=== PATIENT | female | born 1990 | race Caucasian/White ===

== ENCOUNTER → 2019-09-11 12:36 | Outpatient (BNVA) | payer MEDICARE, MEDICAID, SELFPAY | PROVIDERS: Family Provider Family Medicine; PCP Family Medicine; Visit Provider Social Worker Clinical | DX: F63.81 Intermittent explosive disorder (principal); F71 Moderate intellectual disabilities | CPT/HCPCS: 90834 ==

== ENCOUNTER → 2019-10-10 12:55 | Outpatient (BNVA) | payer MEDICARE, MEDICAID, SELFPAY | PROVIDERS: Family Provider Family Medicine; PCP Family Medicine; Visit Provider Social Worker Clinical | DX: F63.81 Intermittent explosive disorder (principal) | CPT/HCPCS: 90834 ==

== ENCOUNTER → 2019-11-13 11:39 | Outpatient (BNVA) | payer MEDICARE, MEDICAID, SELFPAY | PROVIDERS: Family Provider Family Medicine; PCP Family Medicine; Visit Provider Social Worker Clinical | DX: F63.81 Intermittent explosive disorder (principal); F71 Moderate intellectual disabilities | CPT/HCPCS: 90834 ==

== ENCOUNTER → 2019-12-11 13:38 | Outpatient (BNVA) | payer MEDICARE, MEDICAID, SELFPAY | PROVIDERS: Family Provider Family Medicine; PCP Family Medicine; Visit Provider Social Worker Clinical | DX: F63.81 Intermittent explosive disorder (principal); F71 Moderate intellectual disabilities | CPT/HCPCS: 90834 ==

== ENCOUNTER → 2019-12-25 08:07 | Outpatient (BNVA) | payer MEDICARE, MEDICAID, SELFPAY | PROVIDERS: Family Provider Family Medicine; PCP Family Medicine; Visit Provider Social Worker Clinical | DX: F63.81 Intermittent explosive disorder (principal); F71 Moderate intellectual disabilities | CPT/HCPCS: 90832 ==

== ENCOUNTER → 2020-01-16 08:58 | Outpatient (BNVA) | payer MEDICARE, MEDICAID, SELFPAY | PROVIDERS: Family Provider Family Medicine; Visit Provider Social Worker Clinical | DX: F63.81 Intermittent explosive disorder (principal); F71 Moderate intellectual disabilities | CPT/HCPCS: 90834 ==

== ENCOUNTER → 2020-05-22 07:36 | Outpatient (BNVA) | payer MEDICARE, MEDICAID, SELFPAY | PROVIDERS: Family Provider Family Medicine; PCP Family Medicine; Visit Provider Social Worker Clinical | DX: F71 Moderate intellectual disabilities (principal); F63.81 Intermittent explosive disorder | CPT/HCPCS: 90834 ==

== ENCOUNTER → 2020-06-03 08:12 | Outpatient (BNVA) | payer MEDICARE, MEDICAID, SELFPAY | PROVIDERS: Family Provider Family Medicine; Visit Provider Social Worker Clinical | DX: F71 Moderate intellectual disabilities (principal); F63.81 Intermittent explosive disorder | CPT/HCPCS: 90834 ==

== ENCOUNTER → 2020-06-10 08:48 | Outpatient (BNVA) | payer MEDICARE, MEDICAID, SELFPAY | PROVIDERS: Family Provider Family Medicine; Visit Provider Social Worker Clinical | DX: F71 Moderate intellectual disabilities (principal); F63.81 Intermittent explosive disorder | CPT/HCPCS: 90832 ==

== ENCOUNTER → 2020-06-17 08:42 | Outpatient (BNVA) | payer MEDICARE, MEDICAID, SELFPAY | PROVIDERS: Family Provider Family Medicine; Visit Provider Social Worker Clinical | DX: F63.81 Intermittent explosive disorder (principal); F71 Moderate intellectual disabilities | CPT/HCPCS: 90791 ==

== ENCOUNTER → 2020-06-30 14:04 | Outpatient (BNVA) | payer MEDICARE, MEDICAID, SELFPAY | PROVIDERS: Family Provider Family Medicine; Visit Provider Social Worker Clinical | DX: F71 Moderate intellectual disabilities (principal); F63.81 Intermittent explosive disorder | CPT/HCPCS: 90832 ==

== ENCOUNTER → 2020-07-08 09:22 | Outpatient (BNVA) | payer MEDICARE, MEDICAID, SELFPAY | PROVIDERS: Family Provider Family Medicine; Visit Provider Social Worker Clinical | DX: F71 Moderate intellectual disabilities (principal); F63.81 Intermittent explosive disorder | CPT/HCPCS: 90834; 90832 ==

== ENCOUNTER → 2020-07-11 18:10 | Outpatient (BNVA) | payer MEDICARE, MEDICAID, SELFPAY | PROVIDERS: Family Provider Family Medicine; Visit Provider Nurse Practitioner | DX: Z20.828 Contact with and (suspected) exposure to other viral communicable diseases (principal); J02.9 Acute pharyngitis, unspecified | CPT/HCPCS: 87071; 87635; 87880 ==

== ENCOUNTER → 2020-07-15 08:22 | Outpatient (BNVA) | payer MEDICARE, MEDICAID, SELFPAY | PROVIDERS: Family Provider Family Medicine; Visit Provider Social Worker Clinical | DX: F63.81 Intermittent explosive disorder (principal); F70 Mild intellectual disabilities | CPT/HCPCS: 90834 ==

== ENCOUNTER → 2020-07-22 07:59 | Outpatient (BNVA) | payer MEDICARE, MEDICAID, SELFPAY | PROVIDERS: Family Provider Family Medicine; Visit Provider Social Worker Clinical | DX: F63.81 Intermittent explosive disorder (principal); F70 Mild intellectual disabilities | CPT/HCPCS: 90834 ==

== ENCOUNTER → 2020-08-06 07:48 | Outpatient (BNVA) | payer MEDICARE, MEDICAID, SELFPAY | PROVIDERS: Family Provider Family Medicine; Visit Provider Social Worker Clinical | DX: F63.81 Intermittent explosive disorder (principal); F70 Mild intellectual disabilities | CPT/HCPCS: 90834 ==

== ENCOUNTER → 2020-09-03 07:48 | Outpatient (BNVA) | payer MEDICARE, MEDICAID, SELFPAY | PROVIDERS: Family Provider Family Medicine; Visit Provider Social Worker Clinical | DX: F63.81 Intermittent explosive disorder (principal); F70 Mild intellectual disabilities | CPT/HCPCS: 90834 ==

== ENCOUNTER → 2020-09-22 08:40 | Outpatient (BNVA) | payer MEDICARE, MEDICAID, SELFPAY | PROVIDERS: Family Provider Family Medicine; Visit Provider Social Worker Clinical | DX: F63.81 Intermittent explosive disorder (principal); F70 Mild intellectual disabilities | CPT/HCPCS: 90834 ==

== ENCOUNTER → 2020-09-26 15:25 | Outpatient (BNVA) | payer MEDICARE, MEDICAID, SELFPAY | PROVIDERS: Family Provider Family Medicine; Visit Provider Nurse Practitioner Family | DX: J02.9 Acute pharyngitis, unspecified (principal) | CPT/HCPCS: 87071; 87880 ==

== ENCOUNTER 2020-09-29 10:23 | Outpatient (CLI) | payer MEDICARE, MEDICAID, SELFPAY ==
[2020-09-29 14:15] LABS: Estmated Average Glucose 154
== END 2020-09-29 10:24 | disposition home or self-care (01) ==
PROVIDERS: PCP Family Medicine; Visit Provider Family Medicine
DX: Z00.00 Encounter for general adult medical examination without abnormal findings (principal); R73.9 Hyperglycemia, unspecified
CPT/HCPCS: 83036

== ENCOUNTER 2020-10-08 08:14 | Outpatient (CLI) | payer MEDICARE, MEDICAID, SELFPAY ==
--- NOTE | 2020-10-08 08:00 | US_ITS ---
WS: [id number] RIGHT UPPER QUADRANT ULTRASOUND HISTORY: R10.9 - Unspecified abdominal pain COMPARISON: 11/21/2015 Liver: 20.0 cm in length. Liver is moderately enlarged and heterogeneous. Mixed parenchymal pattern e chogenicity throughout the liver but no discrete mass. Gallbladder: Mild diffuse gallbladder wall thickening measuring just over 3 mm. Gallbladder is slight ly contracted and contains several stones. CBD: 0.4 cm Pancreas: Not well visualized. Right kidney: 12.0 cm in length. RIGHT kidney is poorly visualized. No abnormality identified. Aorta and IVC: Unremarkable abdominal aorta and IVC. No ascites. US/US abdomen limited 72424 IMPRESSION: 1. Technically difficult RIGHT upper quadrant ultrasound due to body habitus. 2. Cholelithiasis and mildly contracted gallbladder with no evidence for acute cholecystitis. 3. Moderate hepatic steatosis and hepatomegaly.
== END 2020-10-08 08:15 | disposition home or self-care (01) ==
LOC: RAD 08:15
PROVIDERS: PCP Family Medicine; Visit Provider Surgery
DX: R10.9 Unspecified abdominal pain (principal); K80.20 Calculus of gallbladder without cholecystitis without obstruction; K76.0 Fatty (change of) liver, not elsewhere classified; R16.0 Hepatomegaly, not elsewhere classified
CPT/HCPCS: 76705

== ENCOUNTER 2020-10-21 08:10 | Day surgery (SDC) | payer MEDICARE, MEDICAID, SELFPAY ==
[2020-10-19 10:06] VITALS: BMI 42.0
[2020-10-21 08:37] VITALS: BP 128/86; PULSE 97; RESP 18; TEMP 36.4; O2SAT 97
[2020-10-21] MEDS: sodium chloride 0.9% 1,000 ML 30 ML IV (09:04)
--- NOTE | 2020-10-21 09:11 | ANES.PREANE2 ---
Pre-Anesthetic Assessment Pre-Anesthetic Assessment: Height/Weight: Height 1.57 m Weight 104.326 kg Temp Pulse Resp BP Pulse Ox 97.6 F 97 18 128/86 97 10/21/20 08:37 10/21/20 08:37 10/21/20 08:37 10/21/20 08:37 10/21/20 08:37 Preop Diagnosis: Abdominal Pain Proposed Procedure: Operation Date: 10/21/20 08:55 Proposed Procedures p EGD 57279 R10.9(Not Applicable) - Franck Tejeda MD Familial anesthetic complications: None Was Beta Juan C taken within 24 hours: N/A Last intake: Intake Last Liquid Date 10/20/20 Last Liquid Time 21:30 Last Solid Date 10/20/20 Last Solid Time 20:00 Social: Social History: No alcohol and No tobacco Exam: Pre-Anes Outpt Exam: alert, oriented x 3, clear to auscultation bilaterally and regular rate & rhythm Airway: Cervical ROM: WNL MP: 4 Dentition: Full Metabolic: Metabolic: DM Neuropsych: 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 Anesthetic Plan: ASA status: 3 Anesthesia: MAC Other: Patient gets anxiety with o2 mask being placed over face, will use nasal cannula Risk of > 500 ml blood loss (7ml/kg in children): No Meds/Allergies Current Medications: Current Medications Generic Name Dose Route Start Last Admin Trade Name Freq PRN Reason Stop Dose Admin Sodium Chloride 1,000 mls @ 30 ml s/hr 10/21/20 08:30 10/21/20 09:04 Sodium Chloride 0.9% IV 10/22/20 08:29 30 mls/hr .Q24H TOÑITO Administration PFSH Anesthesia PFSH: Social History (System 09/29/20 @ 16:14 by Lori Castle) Smoking and tobacco status: never smoked Alcohol intake: never Current gender identity: Female Data Anesthesia Cardiac Studies: No Data to Display
--- NOTE | 2020-10-21 09:17 | W.PM.OPSUD ---
Surgery/Procedure H&P Update DATE OF PROCEDURE: October 21, 2020 DATE H&P PERFORMED: 09/24/20 H&P UPDATE INFORMATION: I have reviewed H&P completed within last 30 days and I have examined patient prior to procedure CHANGES TO PREVIOUS DOCUMENTATION: Ultrasound of the liver and gallbladder showed : 1. Technically difficult RIGHT upper quadrant ultrasound due to body habitus. 2. Cholelithiasis and mildly contracted gallbladder with no evidence for acute cholecystitis. 3. Moderate hepatic steatosis and hepatomegaly. PREOP DIAGNOSIS: Abdominal Pain PRIMARY INDICATION FOR PROCEDURE: The same PLANNED PROCEDURE: Operation Date: 10/21/20 08:55 Proposed Procedures p EGD 91253 R10.9(Not Applicable) - Franck Tejeda MD
[2020-10-21 09:30] LABS: OR HCG Qualitative Urine Negative (Negative)
[2020-10-21 09:35] VITALS: BP 144/105; PULSE 95; RESP 16; TEMP 36.8; O2SAT 97
--- NOTE | 2020-10-21 09:42 | ANE.PACU2 ---
Inpatient post-anesthesia follow up: Airway intact: Yes Vital signs: Temperature 98.2 F Pulse Rate 95 Respiratory Rate 16 Blood Pressure 144/105 Pulse Oximetry 97 Oxygen Delivery Me thod Room Air Oxygen Flow Rate Fraction of Inspir ed Oxygen Hydration adequate: Yes Mental status: Baseline
[2020-10-21 09:45] VITALS: BP 143/87; PULSE 85; RESP 18; O2SAT 98
[2020-10-22 06:19] LABS: H. Pylori / CLO Test Negative
== END 2020-10-21 09:57 | disposition home or self-care (01) ==
PROVIDERS: Anesthesiology; PCP Family Medicine; Visit Provider Surgery
PROC: 0DJ08ZZ Inspection of Upper Intestinal Tract, Via Natural or Artificial Opening Endoscopic (ICD-10-PCS; CPT 43235; principal; 2020-10-21 08:55)
DX: R10.9 Unspecified abdominal pain (principal); K21.9 Gastro-esophageal reflux disease without esophagitis; K29.70 Gastritis, unspecified, without bleeding; E11.9 Type 2 diabetes mellitus without complications
CPT/HCPCS: 43239; 81025; 84703; 87077; J2704; J7030

== ENCOUNTER → 2020-10-29 07:56 | Outpatient (BNVA) | payer MEDICARE, MEDICAID, SELFPAY | PROVIDERS: PCP Family Medicine; Visit Provider Social Worker Clinical | DX: F63.81 Intermittent explosive disorder (principal) | CPT/HCPCS: 90834 ==

== ENCOUNTER → 2020-11-19 09:57 | Outpatient (BNVA) | payer MEDICARE, MEDICAID, SELFPAY | PROVIDERS: PCP Family Medicine; Visit Provider Social Worker Clinical | DX: F63.81 Intermittent explosive disorder (principal); F70 Mild intellectual disabilities | CPT/HCPCS: 90834 ==

== ENCOUNTER → 2020-12-03 09:54 | Outpatient (BNVA) | payer MEDICARE, MEDICAID, SELFPAY | PROVIDERS: PCP Family Medicine; Visit Provider Social Worker Clinical | DX: F70 Mild intellectual disabilities (principal); F63.81 Intermittent explosive disorder | CPT/HCPCS: 90834 ==

== ENCOUNTER → 2020-12-08 09:31 | Outpatient (BNVA) | payer MEDICARE, MEDICAID, SELFPAY | PROVIDERS: PCP Family Medicine; Visit Provider Psychiatry & Neurology Psychiatry | DX: F41.9 Anxiety disorder, unspecified (principal); F39 Unspecified mood [affective] disorder; F70 Mild intellectual disabilities | CPT/HCPCS: 90792 ==

== ENCOUNTER → 2020-12-31 08:47 | Outpatient (BNVA) | payer MEDICARE, MEDICAID, SELFPAY | PROVIDERS: PCP Family Medicine; Visit Provider Social Worker Clinical | DX: F39 Unspecified mood [affective] disorder (principal); F70 Mild intellectual disabilities | CPT/HCPCS: 90834 ==

== ENCOUNTER → 2021-01-12 13:16 | Outpatient (BNVA) | payer MEDICARE, MEDICAID, SELFPAY | PROVIDERS: PCP Family Medicine; Visit Provider Psychiatry & Neurology Psychiatry | DX: F39 Unspecified mood [affective] disorder (principal); F70 Mild intellectual disabilities | CPT/HCPCS: 99214 ==

== ENCOUNTER → 2021-01-21 12:44 | Outpatient (BNVA) | payer MEDICARE, MEDICAID, SELFPAY | PROVIDERS: PCP Family Medicine; Visit Provider Social Worker Clinical | DX: F70 Mild intellectual disabilities (principal); F41.9 Anxiety disorder, unspecified; F39 Unspecified mood [affective] disorder | CPT/HCPCS: 90834 ==

== ENCOUNTER → 2021-02-16 08:55 | Outpatient (BNVA) | payer MEDICARE, MEDICAID, SELFPAY | PROVIDERS: PCP Family Medicine; Visit Provider Psychiatry & Neurology Psychiatry | DX: F41.9 Anxiety disorder, unspecified (principal); F39 Unspecified mood [affective] disorder; F70 Mild intellectual disabilities | CPT/HCPCS: 99214 ==

== ENCOUNTER → 2021-02-18 13:03 | Outpatient (BNVA) | payer MEDICARE, MEDICAID, SELFPAY | PROVIDERS: PCP Family Medicine; Visit Provider Social Worker Clinical | DX: F70 Mild intellectual disabilities (principal); F41.9 Anxiety disorder, unspecified; F39 Unspecified mood [affective] disorder | CPT/HCPCS: 90834 ==

== ENCOUNTER 2021-03-13 22:11 | Inpatient (IN) | payer MEDICARE, MEDICAID, SELFPAY ==
--- NOTE | 2021-03-13 22:20 | XRR_ITS ---
PROCEDURE INFORMATION: Exam: XR Chest Exam date and time: 03/13/2021 10:20 PM Age: 31 years old Clinical indication: Dyspnea; Additional info: Covid 19, dyspnea TECHNIQUE: Imaging protocol: XR of the chest. Views: 1 view. COMPARISON: CR Chest 1 [place] [id number] 01/24/2016 8:01 AM FINDINGS: Lungs: There are patchy ground-glass predominantly peripheral opacities present within the hemithoraces bilaterally, left more prominent than right. Some increased interstitial markings are seen bilaterally as well. These findings are compatible with the patient's diagnosis of COVID-19 pneumonia. Pleural spaces: Unremarkable. No pleural effusion. No pneumothorax. Heart/Mediastinum: Unremarkable. No cardiomegaly. Bones/joints: Unremarkable. XR/XR chest 1V portable [id number] IMPRESSION: Predominately peripheral ground-glass opacities seen bilaterally, left more prominent than right and increased interstitial markings present bilaterally, findings compatible with the patient's diagnosis of COVID-19 pneumonia.
[2021-03-13 22:23] VITALS: BP 121/66; PULSE 106; RESP 20; TEMP 37.3; O2SAT 94; BMI 38.6
--- NOTE | 2021-03-13 22:30 | W.ED.GENADLT ---
Documented by User: BOONE Guerrero 03/13/21 23:37 HPI - General Adult General: Chief complaint: COVID symptoms Stated complaint: COVID COMPLICATIONS Time Seen by Provider: 03/13/21 22:20 History of Present Illness: HPI narrative: 31-year-old female comes in today for complaints of hypoxia. Patient has a positive diagnosis for COVID-19 on 10 March. Patient was being monitored for her oxygen saturation as instructed by physician. Patient has a intellectual disability. Family had called EMS due to saturations getting into the 88%. Patient is in no acute distress. Patient is alert and oriented. Review of Systems General: Reports: 10 or more systems reviewed and unremarkable except in HPI and below Resp: Reports: other (hypoxia) [facility], [facility] PFSH: Medical History Abdominal pain Anxiety Cholelithiasis Fatty liver Mild intellectual disability Mood disorder Social History Smoking and tobacco status: never smoked Alcohol intake: never Current gender identity: Female Physical Exam Const: COMMON NORMALS: no acute distress and patient oriented x3 GENERAL APPEARANCE: cooperative HENMT: COMMON NORMALS: normocephalic, TM's normal bilaterally and Normal external nose present HEAD & SCALP: normal to inspection and normocephalic NOSE: Normal external nose present TYMPANIC MEMBRANE: TM's normal bilaterally MOUTH: Normal oral and palatal mucosa present THROAT: posterior oropharynx normal Eye: GENERAL EYE: appearance normal, both eyes and all related structures Neck/C-Spine: COMMON NORMALS: full ROM Lymph: LYMPHATIC: no lymphadenopathy noted Chest: COMMONS NORMALS: normal inspection of the chest Resp: COMMON NORMALS: normal respiratory effort EFFORT & INSPECTION: Yes able to speak in complete sentences AUSCULTATION: crackles (Increased in the left bases) Laterality: left Cardio: COMMON NORMALS: regular rate and regular rhythm RATE: regular rate RHYTHM: regular rhythm GI: COMMON NORMALS: non-tender : COMMON NORMALS: Yes no CVA tenderness BLADDER/KIDNEY EXAM: Yes no CVA tenderness Back/Pelvis: COMMON NORMALS: no CVA tenderness and thoracic and lumbar spine normal to inspection Extremity: COMMON NORMALS: normal to inspection Neuro: COMMON NORMALS: patient oriented x3 and moves all extremities Psych: COMMON NORMALS: mental status grossly normal and cooperative Skin: COMMON NORMALS: no rashes or lesions noted GENERAL SKIN EXAM: no rashes or lesions noted Course ED course: 2319, talked with Dr. Arroyo regarding patient's hypoxia and pneumonia on the chest x-ray. She agreed for admission to the hospital for treatment of the Covid pneumonia. Patient family and patient both informed and agreed to plan. Vital Signs: Vital signs: Vital Signs Temperature 99.2 F 03/13/21 22:23 Pulse Rate 99 03/13/21 23:14 Respiratory Rate 18 03/13/21 23:11 Blood Pressure 123/70 03/13/21 23:07 Pulse Oximetry 93 03/13/21 23:11 MDM - General Adult MDM Narrative: Medical decision making narrative: Patient was brought in by EMS for concerns of hypoxia. Patient was diagnosed with COVID-19 while at a camp for special needs persons. Patient was being monitored at home for oxygen levels. Patient started having oxygen dipping into the mid 80s starting today. On arrival to the ER patient was on 2 L of oxygen and was maintaining 92%. Oxygen was turned off and patient O2 saturation dropped to87-88%. Patient is alert and oriented and appears nontoxic. Vital signs otherwise were normal. Patient does take medication for diabetes, GERD, and depressive disorder. Differential diagnosis includes pneumonia, COVID-19, viral syndrome. Chest x-ray noted pneumonia bilateral worse on the left than the right. Laboratory values noted to increase in the D-dimer and CRP. White blood cell count was 5.5. I reviewed the exam with Dr. Arroyo who agreed to admit patient inpatient for treatment of hypoxia and pneumonia. Lab Data: Labs: Lab Results 03/13/21 03/13/21 03/13/21 Range/Units 01:00 22:50 22:50 WBC 5.5 (4.0-10.0) 10^3/ uL RBC 4.71 (4.1-5.3) 10^6/u L Hgb 11.9 (11.5-15.3) g/dL Hct 38.6 (37.0-47.0) % MCV 82.0 (81-99) fL MCH 25.3 L (28.0-34.0) pg MCHC 30.8 (30.0-36.0) g/dL RDW 13.7 (12.1-15.1) % Plt Count 304 (130-400) 10^3/c mm MPV 9.2 (7.4-10.4) fL Neut % (Auto) 67.0 % Lymph % (Auto) 30.1 % [place] % (Auto) 1.8 % Eos % (Auto) 0.2 % Baso % (Auto) 0.4 % Neut # (Auto) 3.67 (1.8-7.7) 10^3/u L Lymph # (Auto) 1.7 (0.8-4.8) 10^3/u L [place] # (Auto) 0.1 L (0.2-0.9) 10^3/u L Eos # (Auto) 0.0 (0.0-0.8) 10^3/u L Baso # (Auto) 0.0 (0.0-0.1) 10^3/u L Nucleated RBC % (a uto) 0 % Nucleated RBCs # 0.0 /100WBC PT (12.1-14.9) SECO NDS INR (0.8-1.2) APTT (23.9-36.7) SECO NDS Fibrinogen (174-498) mg/dL D-Dimer (0-0.59) ug/mIFE U Sodium 134 L (136-145) mmol/L Potassium 3.4 L (3.5-5.1) mmol/L Chloride 97 L (98-107) mmol/L Carbon Dioxide 25 (22-29) mmol/L Anion Gap 15.4 (5-19) BUN 9 (6-20) mg/dL Creatinine 0.7 (0.5-0.9) mg/dL GFR Calculation 97.6 (90-130) mL/min Glucose 268 H (65-115) mg/dL Calculated Osmolal ity 286 (285-295) mOsm/k g Lactate 0.9 (0.5-2.2) mmol/L Calcium 8.5 (8.5-10.5) mg/dL Ferritin (15-150) ng/mL Total Bilirubin 0.6 (0.15-1.2) mg/dL AST 55 H (0-32) U/L ALT 49 H (0-33) U/L Alkaline Phosphata se 168 H (35-105) IU/L Lactate Dehydrogen ase (135-214) U/L Creatine Kinase (26-192) U/L Troponin T Gen 5 n g/L (0-10) ng/L C-Reactive Protein 175.8 H (0.0-4.9) mg/L NT-Pro-B Natriuret Pep (0-125) pg/mL Total Protein 6.2 L (6.6-8.7) g/dL Albumin 3.6 (3.5-5.2) g/dL Globulin 2.6 (1.3-4.6) g/dL Procalcitonin (0-0.5) ng/mL 03/13/21 03/13/21 03/13/21 Range/Units 22:50 22:50 22:50 WBC (4.0-10.0) 10^3/ uL RBC (4.1-5.3) 10^6/u L Hgb (11.5-15.3) g/dL Hct (37.0-47.0) % MCV (81-99) fL MCH (28.0-34.0) pg MCHC (30.0-36.0) g/dL RDW (12.1-15.1) % Plt Count (130-400) 10^3/c mm MPV (7.4-10.4) fL Neut % (Auto) % Lymph % (Auto) % [place] % (Auto) % Eos % (Auto) % Baso % (Auto) % Neut # (Auto) (1.8-7.7) 10^3/u L Lymph # (Auto) (0.8-4.8) 10^3/u L [place] # (Auto) (0.2-0.9) 10^3/u L Eos # (Auto) (0.0-0.8) 10^3/u L Baso # (Auto) (0.0-0.1) 10^3/u L Nucleated RBC % (a uto) % Nucleated RBCs # /100WBC PT 12.70 (12.1-14.9) SECO NDS INR 0.92 (0.8-1.2) APTT 45.6 H (23.9-36.7) SECO NDS Fibrinogen 638 H (174-498) mg/dL D-Dimer 1.07 H (0-0.59) ug/mIFE U Sodium (136-145) mmol/L Potassium (3.5-5.1) mmol/L Chloride (98-107) mmol/L Carbon Dioxide (22-29) mmol/L Anion Gap (5-19) BUN (6-20) mg/dL Creatinine (0.5-0.9) mg/dL GFR Calculation (90-130) mL/min Glucose (65-115) mg/dL Calculated Osmolal ity (285-295) mOsm/k g Lactate (0.5-2.2) mmol/L Calcium (8.5-10.5) mg/dL Ferritin (15-150) ng/mL Total Bilirubin (0.15-1.2) mg/dL AST (0-32) U/L ALT (0-33) U/L Alkaline Phosphata se (35-105) IU/L Lactate Dehydrogen ase (135-214) U/L Creatine Kinase (26-192) U/L Troponin T Gen 5 n g/L 6 (0-10) ng/L C-Reactive Protein (0.0-4.9) mg/L NT-Pro-B Natriuret Pep (0-125) pg/mL Total Protein (6.6-8.7) g/dL Albumin (3.5-5.2) g/dL Globulin (1.3-4.6) g/dL Procalcitonin (0-0.5) ng/mL 03/13/21 Range/Units 22:50 WBC (4.0-10.0) 10^3/ uL RBC (4.1-5.3) 10^6/u L Hgb (11.5-15.3) g/dL Hct (37.0-47.0) % MCV (81-99) fL MCH (28.0-34.0) pg MCHC (30.0-36.0) g/dL RDW (12.1-15.1) % Plt Count (130-400) 10^3/c mm MPV (7.4-10.4) fL Neut % (Auto) % Lymph % (Auto) % [place] % (Auto) % Eos % (Auto) % Baso % (Auto) % Neut # (Auto) (1.8-7.7) 10^3/u L Lymph # (Auto) (0.8-4.8) 10^3/u L [place] # (Auto) (0.2-0.9) 10^3/u L Eos # (Auto) (0.0-0.8) 10^3/u L Baso # (Auto) (0.0-0.1) 10^3/u L Nucleated RBC % (a uto) % Nucleated RBCs # /100WBC PT (12.1-14.9) SECO NDS INR (0.8-1.2) APTT (23.9-36.7) SECO NDS Fibrinogen (174-498) mg/dL D-Dimer (0-0.59) ug/mIFE U Sodium (136-145) mmol/L Potassium (3.5-5.1) mmol/L Chloride (98-107) mmol/L Carbon Dioxide (22-29) mmol/L Anion Gap (5-19) BUN (6-20) mg/dL Creatinine (0.5-0.9) mg/dL GFR Calculation (90-130) mL/min Glucose (65-115) mg/dL Calculated Osmolal ity (285-295) mOsm/k g Lactate (0.5-2.2) mmol/L Calcium (8.5-10.5) mg/dL Ferritin 470 H (15-150) ng/mL Total Bilirubin (0.15-1.2) mg/dL AST (0-32) U/L ALT (0-33) U/L Alkaline Phosphata se (35-105) IU/L Lactate Dehydrogen ase 325 H (135-214) U/L Creatine Kinase 77 (26-192) U/L Troponin T Gen 5 n g/L (0-10) ng/L C-Reactive Protein (0.0-4.9) mg/L NT-Pro-B Natriuret Pep 34 (0-125) pg/mL Total Protein (6.6-8.7) g/dL Albumin (3.5-5.2) g/dL Globulin (1.3-4.6) g/dL Procalcitonin 0.26 (0-0.5) ng/mL Discharge Plan Discharge Patient Disposition: Admitted As Inpatient Clinical Impression: Pneumonia due to COVID-19 virus, Hypoxia Condition: Stable Coding Level of Care Code ED Medical Scientific Liaison for Chg Fwd Exam Comprehensive Documented by User: Rm Sauceda DO 03/14/21 01:40 HPI - General Adult General: Chief complaint: COVID symptoms Stated complaint: COVID COMPLICATIONS Time Seen by Provider: 03/13/21 22:20 PFSH ED PFSH: Medical History Abdominal pain Anxiety Cholelithiasis Fatty liver Mild intellectual disability Mood disorder Social History Smoking and tobacco status: never smoked Alcohol intake: never Current gender identity: Female Course Vital Signs: Vital signs: Vital Signs Temperature 99.2 F 03/13/21 22:23 Pulse Rate 99 03/13/21 23:14 Respiratory Rate 18 03/13/21 23:11 Blood Pressure 123/70 03/13/21 23:07 Pulse Oximetry 93 03/13/21 23:11 MDM - General Adult MDM Narrative: Medical decision making narrative: 31-year-old female seen by BOONE Parks. I agree with his history, evaluation, and treatment. This patient is hypoxic on exam. She has bilateral pneumonia. She will be admitted for COVID-19 pneumonia with hypoxic respiratory failure. Hospitalist is aware. Hold over orders have been written. Lab Data: Labs: Lab Results 03/13/21 03/13/21 03/13/21 Range/Units 01:00 22:50 22:50 WBC 5.5 (4.0-10.0) 10^3/ uL RBC 4.71 (4.1-5.3) 10^6/u L Hgb 11.9 (11.5-15.3) g/dL Hct 38.6 (37.0-47.0) % MCV 82.0 (81-99) fL MCH 25.3 L (28.0-34.0) pg MCHC 30.8 (30.0-36.0) g/dL RDW 13.7 (12.1-15.1) % Plt Count 304 (130-400) 10^3/c mm MPV 9.2 (7.4-10.4) fL Neut % (Auto) 67.0 % Lymph % (Auto) 30.1 % [place] % (Auto) 1.8 % Eos % (Auto) 0.2 % Baso % (Auto) 0.4 % Neut # (Auto) 3.67 (1.8-7.7) 10^3/u L Lymph # (Auto) 1.7 (0.8-4.8) 10^3/u L [place] # (Auto) 0.1 L (0.2-0.9) 10^3/u L Eos # (Auto) 0.0 (0.0-0.8) 10^3/u L Baso # (Auto) 0.0 (0.0-0.1) 10^3/u L Nucleated RBC % (a uto) 0 % Nucleated RBCs # 0.0 /100WBC PT (12.1-14.9) SECO NDS INR (0.8-1.2) APTT (23.9-36.7) SECO NDS Fibrinogen (174-498) mg/dL D-Dimer (0-0.59) ug/mIFE U Sodium 134 L (136-145) mmol/L Potassium 3.4 L (3.5-5.1) mmol/L Chloride 97 L (98-107) mmol/L Carbon Dioxide 25 (22-29) mmol/L Anion Gap 15.4 (5-19) BUN 9 (6-20) mg/dL Creatinine 0.7 (0.5-0.9) mg/dL GFR Calculation 97.6 (90-130) mL/min Glucose 268 H (65-115) mg/dL Calculated Osmolal ity 286 (285-295) mOsm/k g Lactate 0.9 (0.5-2.2) mmol/L Calcium 8.5 (8.5-10.5) mg/dL Ferritin (15-150) ng/mL Total Bilirubin 0.6 (0.15-1.2) mg/dL AST 55 H (0-32) U/L ALT 49 H (0-33) U/L Alkaline Phosphata se 168 H (35-105) IU/L Lactate Dehydrogen ase (135-214) U/L Creatine Kinase (26-192) U/L Troponin T Gen 5 n g/L (0-10) ng/L C-Reactive Protein 175.8 H (0.0-4.9) mg/L NT-Pro-B Natriuret Pep (0-125) pg/mL Total Protein 6.2 L (6.6-8.7) g/dL Albumin 3.6 (3.5-5.2) g/dL Globulin 2.6 (1.3-4.6) g/dL Procalcitonin (0-0.5) ng/mL 03/13/21 03/13/21 03/13/21 Range/Units 22:50 22:50 22:50 WBC (4.0-10.0) 10^3/ uL RBC (4.1-5.3) 10^6/u L Hgb (11.5-15.3) g/dL Hct (37.0-47.0) % MCV (81-99) fL MCH (28.0-34.0) pg MCHC (30.0-36.0) g/dL RDW (12.1-15.1) % Plt Count (130-400) 10^3/c mm MPV (7.4-10.4) fL Neut % (Auto) % Lymph % (Auto) % [place] % (Auto) % Eos % (Auto) % Baso % (Auto) % Neut # (Auto) (1.8-7.7) 10^3/u L Lymph # (Auto) (0.8-4.8) 10^3/u L [place] # (Auto) (0.2-0.9) 10^3/u L Eos # (Auto) (0.0-0.8) 10^3/u L Baso # (Auto) (0.0-0.1) 10^3/u L Nucleated RBC % (a uto) % Nucleated RBCs # /100WBC PT 12.70 (12.1-14.9) SECO NDS INR 0.92 (0.8-1.2) APTT 45.6 H (23.9-36.7) SECO NDS Fibrinogen 638 H (174-498) mg/dL D-Dimer 1.07 H (0-0.59) ug/mIFE U Sodium (136-145) mmol/L Potassium (3.5-5.1) mmol/L Chloride (98-107) mmol/L Carbon Dioxide (22-29) mmol/L Anion Gap (5-19) BUN (6-20) mg/dL Creatinine (0.5-0.9) mg/dL GFR Calculation (90-130) mL/min Glucose (65-115) mg/dL Calculated Osmolal ity (285-295) mOsm/k g Lactate (0.5-2.2) mmol/L Calcium (8.5-10.5) mg/dL Ferritin (15-150) ng/mL Total Bilirubin (0.15-1.2) mg/dL AST (0-32) U/L ALT (0-33) U/L Alkaline Phosphata se (35-105) IU/L Lactate Dehydrogen ase (135-214) U/L Creatine Kinase (26-192) U/L Troponin T Gen 5 n g/L 6 (0-10) ng/L C-Reactive Protein (0.0-4.9) mg/L NT-Pro-B Natriuret Pep (0-125) pg/mL Total Protein (6.6-8.7) g/dL Albumin (3.5-5.2) g/dL Globulin (1.3-4.6) g/dL Procalcitonin (0-0.5) ng/mL 03/13/21 Range/Units 22:50 WBC (4.0-10.0) 10^3/ uL RBC (4.1-5.3) 10^6/u L Hgb (11.5-15.3) g/dL Hct (37.0-47.0) % MCV (81-99) fL MCH (28.0-34.0) pg MCHC (30.0-36.0) g/dL RDW (12.1-15.1) % Plt Count (130-400) 10^3/c mm MPV (7.4-10.4) fL Neut % (Auto) % Lymph % (Auto) % [place] % (Auto) % Eos % (Auto) % Baso % (Auto) % Neut # (Auto) (1.8-7.7) 10^3/u L Lymph # (Auto) (0.8-4.8) 10^3/u L [place] # (Auto) (0.2-0.9) 10^3/u L Eos # (Auto) (0.0-0.8) 10^3/u L Baso # (Auto) (0.0-0.1) 10^3/u L Nucleated RBC % (a uto) % Nucleated RBCs # /100WBC PT (12.1-14.9) SECO NDS INR (0.8-1.2) APTT (23.9-36.7) SECO NDS Fibrinogen (174-498) mg/dL D-Dimer (0-0.59) ug/mIFE U Sodium (136-145) mmol/L Potassium (3.5-5.1) mmol/L Chloride (98-107) mmol/L Carbon Dioxide (22-29) mmol/L Anion Gap (5-19) BUN (6-20) mg/dL Creatinine (0.5-0.9) mg/dL GFR Calculation (90-130) mL/min Glucose (65-115) mg/dL Calculated Osmolal ity (285-295) mOsm/k g Lactate (0.5-2.2) mmol/L Calcium (8.5-10.5) mg/dL Ferritin 470 H (15-150) ng/mL Total Bilirubin (0.15-1.2) mg/dL AST (0-32) U/L ALT (0-33) U/L Alkaline Phosphata se (35-105) IU/L Lactate Dehydrogen ase 325 H (135-214) U/L Creatine Kinase 77 (26-192) U/L Troponin T Gen 5 n g/L (0-10) ng/L C-Reactive Protein (0.0-4.9) mg/L NT-Pro-B Natriuret Pep 34 (0-125) pg/mL Total Protein (6.6-8.7) g/dL Albumin (3.5-5.2) g/dL Globulin (1.3-4.6) g/dL Procalcitonin 0.26 (0-0.5) ng/mL Discharge Plan Discharge Patient Disposition: Admitted As Inpatient Clinical Impression: Pneumonia due to COVID-19 virus, Hypoxia Condition: Stable Coding Level of Care Code ED Medical Scientific Liaison for Sudheer Fwd Exam Comprehensive
[2021-03-13 22:33] VITALS: O2SAT 94
[2021-03-13 22:59] LABS: Basophils % 0.4 %; Eosinophils % 0.2 %; Hematocrit 38.6 % (37.0-47.0); Hemoglobin 11.9 g/dL (11.5-15.3); Lymphocytes # 1.7 10^3/uL (0.8-4.8); Lymphocytes % 30.1 %; Mean Corpuscular HGB Conc 30.8 g/dL (30.0-36.0); Mean Corpuscular Hemoglobin 25.3 pg (28.0-34.0); Mean Platelet Volume 9.2 fL (7.4-10.4); Monocytes # 0.1 10^3/uL (0.2-0.9); Monocytes % 1.8 %; Neutrophils # 3.67 10^3/uL (1.8-7.7); Nucleated Red Blood Cells % 0 %; Platelet Count 304 10^3/cmm (130-400); Red Blood Count 4.71 10^6/uL (4.1-5.3); Red Cell Distribution Width 13.7 % (12.1-15.1); White Blood Count 5.5 10^3/uL (4.0-10.0)
--- NOTE | 2021-03-13 23:06 | PC.NURSE ---
SATS hovering at 88-89%, so pt placed back on 2L O2 via NC. PA notified.
[2021-03-13 23:07] VITALS: BP 123/70; PULSE 105; RESP 20; O2SAT 91
[2021-03-13] MEDS: albuterol 8 gm MDI 2 PUFF INHALATION (23:10)
[2021-03-13 23:11] VITALS: PULSE 98; RESP 18; O2SAT 93
[2021-03-13 23:13] LABS: D Dimer 1.07 ug/mIFEU (0-0.59)
[2021-03-13 23:14] VITALS: PULSE 99
[2021-03-13 23:16] LABS: Alanine Aminotransferase 49 U/L (0-33); Albumin Level 3.6 g/dL (3.5-5.2); Alkaline Phosphatase 168 IU/L (35-105); Anion Gap 15.4 (5-19); Aspartate Amino Transferase 55 U/L (0-32); Blood Urea Nitrogen 9 mg/dL (6-20); C Reactive Protein 175.8 mg/L (0.0-4.9); Calcium 8.5 mg/dL (8.5-10.5); Carbon Dioxide 25 mmol/L (22-29); Chloride 97 mmol/L (98-107); Globulin 2.6 g/dL (1.3-4.6); Glomerular Filtration Rate 97.6 mL/min (90-130); Glucose 268 mg/dL (65-115); Osmolality Calculated 286 mOsm/kg (285-295); Potassium 3.4 mmol/L (3.5-5.1); Sodium 134 mmol/L (136-145); Total Bilirubin 0.6 mg/dL (0.15-1.2); Total Protein 6.2 g/dL (6.6-8.7); Troponin T (5th) Once 6 ng/L (0-10)
[2021-03-14] VITALS (126 sets, daily range): BP systolic 102–150; BP diastolic 55–90; PULSE 80–126; RESP 14–42; TEMP 35.9–37.2; O2SAT 80–98
[2021-03-14] LABS: INR 0.92 (0.8-1.2); Partial Thromboplastin Time 45.6 SECONDS (23.9-36.7)
[2021-03-14 00:01] LABS: Fibrinogen 638 mg/dL (174-498)
[2021-03-14 00:07] LABS: NT Pro B Type Natriuretic Pept 34 pg/mL (0-125); Procalcitonin 0.26 ng/mL (0-0.5)
[2021-03-14 00:17] LABS: Creatine Phosphokinase 77 U/L (26-192); Lactate Dehydrogenase 325 U/L (135-214)
[2021-03-14 00:34] LABS: Ferritin 470 ng/mL (15-150)
[2021-03-14] MEDS: dexamethasone 4 mg/mL INJ 6 MG IVP ×2 (00:52→09:18)
[2021-03-14] MEDS: remdesivir 200 MG in sodium chloride 0.9% (100 ml) 100 ML 100 MG IV (00:52)
[2021-03-14 01:26] LABS: Lactate (Lactic Acid level) 0.9 mmol/L (0.5-2.2)
--- NOTE | 2021-03-14 02:34 | PC.NURSE ---
Given a bedside toilet; mother asked to assist pt onto and off the toilet. Given toilet paper. Given gown to put on while she is up from bed.
[2021-03-14 03:00] LABS: SARS Covid-2 Antigen Negative (Negative)
--- NOTE | 2021-03-14 06:31 | PC.NURSE ---
Patient arrived to the floor around 0450. Patient was on 2L NC upon arrival to room from ED with oxygen saturation in low to mid 90s. After patient fell asleep, her oxygen saturation dropped to 80s. RT placed patient on 4 L mask. Patient pulled mask off a couple of times and it had to be placed back on. Will continue to monitor.
--- NOTE | 2021-03-14 07:09 | P.HP_ITS ---
Providers/Chief Complaint Admitting Physician: Claudia Arroyo MD Primary Care Provider: Lillian Pena MD Chief Complaint: COVID COMPLICATIONS History of Present Illness Alejandra Jorgensen is a 31 year old female who presented to the emergency room with chief complaint of increasing difficulty breathing and shortness of breath. She was diagnosed with Covid this past . Testing was done in [facility] and we do not have those results available. Rapid Covid antigen this evening was negative. She had been at a camp at the time she was diagnosed and had to leave. Her family came to get her and have been monitoring how she has been doing, in particular her oxygen saturations. Her oxygen saturations dropped into the other upper 80s at home today prompting ER visit. Patient's mother does have Covid as well. Alejandra resides at a custodial. She has had fevers up to 103. She has had chest congestion, cough primarily nonproductive, abdominal discomfort, diarrhea and vomiting. She has some chronic abdominal pain related to chronic cholelithiasis. She underwent an EGD earlier this year. She indicates that the abdominal discomfort is worse than usual. Denies any blood in her stools or black tarry stools. No hematemesis. Denies chest pain. Denies loss of taste or smell. Does admit to generalized aches and pains and being tired. She has not previously had Covid and did not get the Covid vaccine. In the emergency room she was requiring 2 L of oxygen by nasal cannula that later required increase to 4 L. Multiple laboratory studies were abnormal. Review of Systems Const: Reports: fever(s), chills, body aches, fatigue and malaise Eyes: Denies: change in vision ENMT: Reports: throat pain and nasal congestion Card: Denies: chest pain, palpitations or edema Resp: Reports: dyspnea, productive cough and non-productive cough GI: Reports: abdominal pain, nausea, vomiting and diarrhea; Denies: hematemesis, constipation, hematochezia or melena : Denies: difficulty voiding or hematuria Musc: Reports: other Skin/Breast: Denies: rash, pruritus or sores Neuro: Reports: headache(s); Denies: numbness in extremities, weakness in extremities or difficulty walking Psych: Reports: anxiety; Denies: depression Endo: Reports: other (Last menstrual cycle in February) Albaro/Lymph: Denies: easy bruising or easy bleeding Medications/Allergies Home Medications Medication Instructions Recorded Confirmed Last Taken Type levonorgestrel 0.15 mg-ethinyl 1 tab PO DAILY 12/08/20 03/14/21 1 Day Ago History estradiol 30 mcg tablets,3 mos ~03/13/21 pack(91) loratadine 10 mg tablet 10 mg PO DAILY PRN 12/31/20 03/14/21 Unknown History omeprazole 20 mg capsule,delayed 20 mg PO BID 30 Days #60 cap 01/18/21 03/14/21 1 Day Ago Rx release ~03/13/21 lorazepam 0.5 mg tablet 0.25 mg PO .qhs 30 Days #15 tab 02/16/21 03/14/21 1 Day Ago Rx ~03/13/21 venlafaxine 75 mg capsule,extended 225 mg PO QAM 30 Days #90 cap 02/16/21 03/14/21 1 Day Ago Rx release 24 hr ~03/13/21 acetaminophen 650 mg PO Q6H PRN 03/14/21 03/14/21 1 Day Ago History ~03/13/21 clonidine 0.2 mg TOPICAL DAILY 03/14/21 03/14/21 Unknown History dextromethorphan-guaifenesin 10 ml PO Q4H PRN 03/14/21 03/14/21 Unknown History [Q-Tussin DM] diphenhydramine HCl 25 mg PO Q6H PRN 03/14/21 03/14/21 Unknown History ibuprofen 200 mg PO BID PRN 03/14/21 03/14/21 1 Day Ago History ~03/13/21 loperamide 2 mg PO Q2H PRN 03/14/21 03/14/21 Unknown History metformin 500 mg PO DAILY 03/14/21 03/14/21 1 Day Ago History ~03/13/21 montelukast [Singulair] 10 mg PO QPM 03/14/21 03/14/21 1 Day Ago History ~03/13/21 multivitamin [Daily Multivitamin] 1 tab PO DAILY 03/14/21 03/14/21 Unknown History multivitamin with minerals [Sentry] 1 tab PO DAILY 03/14/21 03/14/21 1 Day Ago History ~03/13/21 phenol [Chloraseptic Throat [place]] 2 spray MUCOUS MEMBRANE Q2H PRN 03/14/21 03/14/21 1 Day Ago History ~03/13/21 prazosin 1 mg PO BEDTIME 03/14/21 03/14/21 1 Day Ago History ~03/13/21 trazodone 100 mg PO BEDTIME 03/14/21 03/14/21 Unknown History Allergies Allergy/AdvReac Type Severity Reaction Status Date / Time phenobarbital Allergy RASH Verified 03/14/21 04:51 PFSH Acute PFSH: Medical History (Updated 03/14/21 @ 09:07 by Claudia Arroyo MD) Anxiety Cholelithiasis Fatty liver GERD (gastroesophageal reflux disease) Mild intellectual disability Mood disorder Tympanic membrane central perforation left Surgical History (Updated 03/14/21 @ 09:13 by Claudia Arroyo MD) History of esophagogastroduodenoscopy (EGD) (~10/2020) History of foot surgery History of placement of ear tubes History of tonsillectomy Family History (Updated 03/14/21 @ 09:19 by Claudia Arroyo MD) Other COVID-19 Social History (Updated 03/14/21 @ 07:16 by Claudia Arroyo MD) Smoking and tobacco status: never smoked Alcohol intake: never Substance/Drug Use: never Housing: Other Details: custodial Current gender identity: Female Vitals/I&O/Wt Last Vital Signs Temp 99.2 F 03/13/21 22:23 Pulse 81 03/14/21 06:00 Resp 24 H 03/14/21 04:56 BP 104/70 03/14/21 04:56 Pulse Ox 93 03/14/21 04:56 03/13/21 03/14/21 03/14/21 22:59 06:59 14:59 Intake Total 150 / 150 Balance 150 / 150 Weight last 48 hrs Weight 102.058 kg Physical Exam Narrative: EXAM NARRATIVE: Constitutional: Asleep, arousable, answers questions appropriately, looks like she does not feel well HEENT: Normocephalic, conjunctive injected, nasopharynx with rhinorrhea, oropharynx with dry mucous membranes Neck: Supple Respiratory: Wheezes and rhonchi noted, productive cough, no accessory muscle use Cardiovascular: Regular rhythm, distant heart sounds, no obvious murmurs Abdomen: Soft, mild tenderness in the upper quadrants, right upper quadrant greater than epigastric greater than left, no rebound or guarding, positive bowel sounds Extremities: No pitting edema, no cyanosis Skin: Dry, no rashes Neuro: Speech clear, extraocular movements intact, face symmetric, moves all extremities Psych: Calm, slightly blunted affect but alert and oriented to person place and situation. Able to provide basic history, cooperative. Data : 03/13/21 22:50 03/13/21 22:50 A&P Assessment and plan (1) Hypoxia: Requiring oxygen therapy Status: Acute (2) Pneumonia due to COVID-19 virus: Positive test at [facility] this past despite negative rapid antigen today. Family and home members also have Covid. Has associated elevation in ferritin, transaminases, LDH, CRP,, D-dimer and fibrinogen within normal pro calcitonin. Status: Acute (3) Cholelithiasis: Currently scheduled to have cholecystectomy in May by Dr. Tejeda. Has chronic abdominal discomfort currently exacerbated by Covid. Status: Chronic Qualifiers: Cholelithiasis location: gallbladder Cholecystitis presence: without cholecystitis Biliary obstruction: without biliary obstruction Qualified Code(s): K80.20 - Calculus of gallbladder without cholecystitis without obstruction (4) GERD (gastroesophageal reflux disease): Status: Chronic Qualifiers: Esophagitis presence: esophagitis presence not specified Qualified Code(s): K21.9 - Gastro-esophageal reflux disease without esophagitis (5) Chronic otitis media of both ears: Status: Chronic (6) Mild intellectual disability: Status: Chronic (7) Mood disorder: Status: Chronic (8) Anxiety: Status: Chronic Additional A&P Information Inpatient admission Dexamethasone Remdesivir Covid PCR was sent Breathing treatments Oxygen as needed Blood cultures were collected Procalcitonin was normal Vitamin C, vitamin D, zinc Lovenox for DVT prophylaxis PPI Check hemoglobin A1c, sliding scale insulin for diabetes, hold home Metformin Continue home trazodone, venlafaxine and prazosin Will decrease her clonidine patch dosing to 0.1 and monitor blood pressures for tolerance of continued use Decreased home as needed lorazepam dose Continue home Claritin Holding control pills currently due to propensity to increase risk of VTE Discussed with patient that we will most likely have to hold off on her cholecystectomy if it continues to be an elective procedure to decrease risk of complications perioperatively given her Covid diagnosis. Ultimate timeframe will depend on her clinical course and complications. Supportive care otherwise Currently anticipate discharge home though will ultimately depend on clinical course Findings, concerns and plans were discussed with patient and he was given an opportunity to ask questions Full code Attestations Medical Necessity Statement*: Anticipated stay greater than 2 midnights in this patient with COVID-19 pneumonia necessitating oxygen therapy. She has mu ltiple markers of systemic inflammation. Plans are as noted. Coding Level of Care Code Acute Admissions Coordinator for g Fwd Diagnoses Hypoxia R09.02 Pneumonia due to COVID-19 virus U07.1; J12.82 Cholelithiasis K80.20 Cholelithiasis location: gallbladder Cholecystitis presence: without cholecystitis Biliary obstruction: without biliary obstruction GERD (gastroesophageal reflux disease) K21.9 Esophagitis presence: esophagitis presence not specified Chronic otitis media of both ears H66.93 Mild intellectual disability F70 Mood disorder F39 Anxiety F41.9
[2021-03-14] MEDS: enoxaparin 40 mg/0.4 mL Syringe SUBCUT (09:19)
[2021-03-14] MEDS: zinc gluconate 50 mg Tablet PO (09:19)
[2021-03-14] MEDS: cholecalciferol (vitamin D3) 1,000 unit Tablet 2000 UNIT PO (09:19)
[2021-03-14] MEDS: ascorbic acid 500 mg Tablet PO ×2 (09:19→17:53)
[2021-03-14] MEDS: pantoprazole DR 40 mg Tablet PO (09:19)
[2021-03-14] MEDS: albuterol 8 gm MDI 2 PUFF INHALATION ×3 (09:29→21:23)
[2021-03-14 09:40] LABS: Glucose Point of Care 335 mg/dL (70-110)
--- NOTE | 2021-03-14 10:21 | PC.NURSE ---
Okay to speak to: Laure Watkins- relative - [phone] Luann Moser - integrated program teacher at [employer] - [phone]
[2021-03-14] MEDS: cloNIDine 0.1 mg/24 hr Patch 1 PATCH TRANSDERMA (10:42)
[2021-03-14 12:19] LABS: Glucose Point of Care 255 mg/dL (70-110)
[2021-03-14] MEDS: ondansetron 2 mg/ML SDV 2 mL 4 MG IVP (14:02)
--- NOTE | 2021-03-14 14:25 | PC.NURSE ---
Patient complains of nausea. Nurse administered PRN zofran.
--- NOTE | 2021-03-14 14:25 | PC.NURSE ---
SHift SUmmary: uneventful shift. Pt rested in bed most of shift. Some complaints of nausea treated with zofran.
--- NOTE | 2021-03-14 14:52 | P.PN_ITS ---
Subjective Subjective: Interval history: Patient was seen and examined this morning currently she is complaining of persistent cough, headache and sore throat. She has remained afebrile. Her vitals and labs have been reviewed Medications: Reviewed: Yes Vitals/I&O/Wt Last Vital Signs Temp 98.9 F 03/14/21 12:30 Pulse 98 03/14/21 14:20 Resp 40 H 03/14/21 14:20 BP 122/80 03/14/21 14:20 Pulse Ox 87 L 03/14/21 14:20 03/13/21 03/14/21 03/14/21 22:59 06:59 14:59 Intake Total 150 / 150 750 / 750 Balance 150 / 150 750 / 750 Weight last 48 hrs Weight 102.058 kg Physical Exam Const: COMMON NORMALS: patient oriented x3 HENMT: COMMON NORMALS: normocephalic and atraumatic HEAD & SCALP: normocephalic and atraumatic Chest: CHEST: Yes Symmetrical chest wall rise Resp: OTHER: Diminished air entry at bases, minimal bilateral basal crackles present. Cardio: COMMON NORMALS: regular rate, regular rhythm, S1 normal heart sound present, S2 normal heart sound present, No gallops present (Cardio), No murmurs present (Cardio), No rub (Cardio) and Peripheral pulses 2+ throughout RATE: regular rate RHYTHM: regular rhythm HEART SOUNDS: S1 normal heart sound present and S2 normal heart sound present PERIPHERAL PULSES: Peripheral pulses 2+ throughout GI: COMMON NORMALS: Normal to inspection, nondistended, normoactive bowel sounds present, Soft to palpation, non-tender, No hepatosplenomegaly present and no masses AUSCULTATION: Yes normoactive bowel sounds PALPATION: Yes Soft to palpation and Yes No hepatosplenomegaly present RECTAL EXAM: deferred Extremity: COMMON NORMALS: no clubbing, cyanosis or edema and no pedal edema Neuro: COMMON NORMALS: patient oriented x3 Data : 03/13/21 22:50 03/13/21 22:50 A&P Assessment and plan (1) Respiratory failure with hypoxia: Acute on chronic hypoxic Respiratory failure: Due to Covid pneumonia: Currently on COVID Protocol Xray chest :peripheral ground-glass opacities seen bilaterally, left more prominent than right and increased interstitial markings present bilaterally. D-dimer : 1.07 ESR: CRP:175 Ferittin:470 Fibrinigen: 638 LDH : 325 Procalcitonin : Normal Follow COVID PCR Rapid COVID Antigen :Positive at outside facility.Negative here. Remdesivir 5 Day course Dexamethasone 6 mg I.V Daily Lovenox 40 mg sc Daily Spirivia Advair inhalation Ascorbic acid po Zinc gluconate po Incentive Spirometry flutter valve Supplemental oxygen Status: Acute (2) Pneumonia due to COVID-19 virus: Positive test at [facility] this past despite negative rapid antigen today. Family and home members also have Covid. Status: Acute (3) Cholelithiasis: Currently scheduled to have cholecystectomy in May by Dr. Tejeda. Has chronic abdominal discomfort currently exacerbated by Covid. Status: Chronic Qualifiers: Cholelithiasis location: gallbladder Cholecystitis presence: without cholecystitis Biliary obstruction: without biliary obstruction Qualified Code(s): K80.20 - Calculus of gallbladder without cholecystitis without obstruction (4) GERD (gastroesophageal reflux disease): Status: Chronic Qualifiers: Esophagitis presence: esophagitis presence not specified Qualified Code(s): K21.9 - Gastro-esophageal reflux disease without esophagitis (5) Chronic otitis media of both ears: Status: Chronic (6) Mild intellectual disability: Status: Chronic (7) Mood disorder: Status: Chronic (8) Anxiety: Status: Chronic (9) Diabetes: Status: Acute Additional A&P Information Inpatient admission Dexamethasone Remdesivir Covid PCR was sent Breathing treatments Oxygen as needed Blood cultures were collected Procalcitonin was normal Vitamin C, vitamin D, zinc Lovenox for DVT prophylaxis PPI Check hemoglobin A1c, sliding scale insulin for diabetes, hold home Metformin Continue home trazodone, venlafaxine and prazosin Will decrease her clonidine patch dosing to 0.1 and monitor blood pressures for tolerance of continued use Decreased home as needed lorazepam dose Continue home Claritin Holding control pills currently due to propensity to increase risk of VTE Discussed with patient that we will most likely have to hold off on her cholecystectomy if it continues to be an elective procedure to decrease risk of complications perioperatively given her Covid diagnosis. Ultimate timeframe will depend on her clinical course and complications. Supportive care otherwise Currently anticipate discharge home though will ultimately depend on clinical course Findings, concerns and plans were discussed with patient and he was given an opportunity to ask questions Full code Attestations Medical Necessity Statement*: Patient needs to be in hospital for management of Covid pneumonia. Coding Level of Care Code Acute Assistant City Attorney for Chg Fwd Diagnoses Respiratory failure with hypoxia J96.91 Pneumonia due to COVID-19 virus U07.1; J12.82 Cholelithiasis K80.20 Cholelithiasis location: gallbladder Cholecystitis presence: without cholecystitis Biliary obstruction: without biliary obstruction GERD (gastroesophageal reflux disease) K21.9 Esophagitis presence: esophagitis presence not specified Chronic otitis media of both ears H66.93 Mild intellectual disability F70 Mood disorder F39 Anxiety F41.9 Diabetes E11.9
[2021-03-14] MEDS: acetaminophen 325 mg Tablet 650 MG PO (16:10)
[2021-03-14 17:12] LABS: Glucose Point of Care 243 mg/dL (70-110)
[2021-03-14] MEDS: remdesivir 100 MG in sodium chloride 0.9% (100 ml) 100 ML IV (17:53)
[2021-03-14] MEDS: montelukast sodium 10 mg Tablet PO (17:53)
[2021-03-14] MEDS: phenol oral Spray 177 mL 2 SPRAY MUCOUS MEM (18:18)
[2021-03-14] MEDS: ibuprofen 200 mg Tablet PO (21:02)
[2021-03-14] MEDS: trazodone 100 mg Tablet PO (21:02)
[2021-03-14] MEDS: calcium carbonate 500 mg Chew Tablet 1000 MG PO (21:04)
[2021-03-14] MEDS: LORazepam 0.5 mg Tablet 0.25 MG PO (21:05)
[2021-03-14 22:22] LABS: Glucose Point of Care 300 mg/dL (70-110)
[2021-03-15] VITALS (17 sets, daily range): BP systolic 104–121; BP diastolic 63–74; PULSE 66–90; RESP 19–35; TEMP 36.6–36.9; O2SAT 88–95
--- NOTE | 2021-03-15 | XRR_ITS ---
[facility] Final Radiology Report Call: [phone] assistance Online chat: [email or web address] Name: PURVI ANDRADE Age: 31Years F Date: 03/15/2021 SSN: [id number] : 1990 Study: XR CHEST 1 VIEW Requesting Physician: ASH BOLTON Images: 1 Add?l Studies: Provided Clinical History: PROCEDURE INFORMATION: Exam: XR Chest Exam date and time: 03/15/2021 9:02 AM Age: 31 years old Clinical indication: Shortness of breath; Patient HX: Acute hypoxic respiratory failure TECHNIQUE: Imaging protocol: XR of the chest. Views: 1 view. COMPARISON: CR (CHEST, ) 03/13/2021 10:23 PM FINDINGS: Lungs: There are worsening bilateral pulmonary infiltrates consistent with worsening pneumonia. Pleural spaces: Unremarkable. No pleural effusion. No pneumothorax. Heart/Mediastinum: Unremarkable. No cardiomegaly. Bones/joints: Unremarkable. IMPRESSION: Worsening bilateral pulmonary infiltrates. Thank you for allowing us to participate in the care of your patient. Dictated and Authenticated by: Maninder Aguayo MD 03/15/2021 1:31 PM Central Time ([place] & [place]) CRISTI
[2021-03-15] MEDS: venlafaxine ER (24HR) 75 mg Capsule 225 MG PO (04:55)
[2021-03-15 06:55] LABS: Glucose Point of Care 257 mg/dL (70-110)
[2021-03-15 07:08] LABS: Hematocrit 40.2 % (37.0-47.0); Lymphocytes # 1.6 10^3/uL (0.8-4.8); Lymphocytes % 38.3 %; Mean Corpuscular HGB Conc 29.9 g/dL (30.0-36.0); Mean Corpuscular Hemoglobin 24.6 pg (28.0-34.0); Mean Corpuscular Volume 82.5 fL (81-99); Mean Platelet Volume 9.6 fL (7.4-10.4); Monocytes # 0.2 10^3/uL (0.2-0.9); Monocytes % 5.7 %; Neutrophils # 2.32 10^3/uL (1.8-7.7); Neutrophils % 55.3 %; Nucleated Red Blood Cells % 0 %; Platelet Count 371 10^3/cmm (130-400); Red Blood Count 4.87 10^6/uL (4.1-5.3); Red Cell Distribution Width 13.8 % (12.1-15.1); White Blood Count 4.2 10^3/uL (4.0-10.0)
[2021-03-15 07:32] LABS: Alanine Aminotransferase 39 U/L (0-33); Albumin Level 3.2 g/dL (3.5-5.2); Alkaline Phosphatase 146 IU/L (35-105); Anion Gap 14.9 (5-19); Aspartate Amino Transferase 39 U/L (0-32); Blood Urea Nitrogen 14 mg/dL (6-20); Calcium 8.9 mg/dL (8.5-10.5); Carbon Dioxide 29 mmol/L (22-29); Chloride 100 mmol/L (98-107); Ferritin 694 ng/mL (15-150); Globulin 3.4 g/dL (1.3-4.6); Glomerular Filtration Rate 116.6 mL/min (90-130); Glucose 275 mg/dL (65-115); Magnesium 2.1 mg/dL (1.7-2.3); Osmolality Calculated 300 mOsm/kg (285-295); Phosphorus 3.5 mg/dL (2.5-4.5); Potassium 3.9 mmol/L (3.5-5.1); Sodium 140 mmol/L (136-145); Total Bilirubin 0.3 mg/dL (0.15-1.2); Total Protein 6.6 g/dL (6.6-8.7)
[2021-03-15 07:34] LABS: Procalcitonin 0.16 ng/mL (0-0.5)
[2021-03-15 07:45] LABS: Estmated Average Glucose 163; Hemoglobin A1C 7.3 % (4.0-6.0)
[2021-03-15] MEDS: albuterol 8 gm MDI 2 PUFF INHALATION (07:51)
[2021-03-15 08:06] LABS: Erythrocyte Sedimentation Rate 76 mm/hr (0-15)
--- NOTE | 2021-03-15 08:40 | PM.PN ---
Subjective Subjective: Interval history: Overnight, she was tachypneic to 26, and continues to require 15 L high flow and L. She is hyperglycemic. She remained on 15 L high flow nasal cannula with O2 sats between 87 and 88%. In the afternoon, an attempt was made by respiratory therapist, to switch her to OptiFlow, but the patient was unable to tolerate the heated O2. The heat of the O2 was decreased, and the patient was better able to tolerate it. Today, the patient when she was seen, she complained of throat pain due to coughing, as well as periumbilical abdominal pain. Vitals/I&O/Wt Last Vital Signs Temp 98.5 F 03/15/21 04:00 Pulse 81 03/15/21 07:53 Resp 26 H 03/15/21 07:45 BP 113/67 03/15/21 04:00 Pulse Ox 92 03/15/21 07:45 03/14/21 03/15/21 03/15/21 22:59 06:59 14:59 Intake Total 200.04 / 950.04 Output Total 1200 / 1200 Balance -999.96 / -249.96 Weight last 48 hrs Weight 102.058 kg Physical Exam Const: COMMON NORMALS: no acute distress GENERAL APPEARANCE: cooperative and comfortable NUTRITIONAL APPEARANCE: overweight ORIENTATION/CONSCIOUSNESS: Yes awake, Yes oriented to person, Yes oriented to place and Yes oriented to time HENMT: COMMON NORMALS: normocephalic, atraumatic, external ears normal and Normal external nose present HEAD & SCALP: normocephalic and atraumatic FACE & SINUS: normal facial exam NOSE: Normal external nose present EXTERNAL EAR: Yes external ears normal MOUTH: Normal oral and palatal mucosa present Eye: COMMON NORMALS: Equal, round and reactive pupils present and conjunctivae normal CONJUNCTIVA: Yes conjunctivae normal PUPIL: Yes Equal, round and reactive pupils present EOM: No EOM abnormal Neck/C-Spine: COMMON NORMALS: no lymphadenopathy and Thyroid normal GENERAL: Yes trachea midline and No anterior neck swelling THYROID: Thyroid normal CERVICAL SPINE: Yes cervical ROM normal Resp: AUSCULTATION: crackles Laterality: right and diminished lung sounds on the right (RLL) and on the left (LML and LLL) GI: COMMON NORMALS: Soft to palpation and No hepatosplenomegaly present INSPECTION: Yes normal to inspection AUSCULTATION: Yes normoactive bowel sounds PALPATION: Yes Soft to palpation, Yes Tenderness to palpation present (GI) Details: RUQ and other (periumbilicus), No Guarding due to palpation present (GI), No Rigid due to palpation, Yes No hepatosplenomegaly present and No Rebound tenderness present Extremity: GENERAL: No clubbing, No cyanosis and No edema Neuro: SENSORIUM/ORIENTATION: Yes oriented to person, Yes oriented to place and Yes oriented to time Psych: COMMON NORMALS: speech normal ATTITUDE: Yes engaged ACTIVITY/MOTOR BEHAVIOR: Yes appropriate eye contact SPEECH: Yes normal speech MOOD & AFFECT: Yes euthymic mood (happily eating. ) Skin: COMMON NORMALS: no rashes or lesions noted GENERAL SKIN EXAM: no rashes or lesions noted Data : 03/15/21 06:20 03/15/21 06:20 A&P Assessment and plan (1) Acute respiratory failure with hypoxia: Status: Acute (2) Pneumonia due to COVID-19 virus: Status: Acute (3) Hyperglycemia, drug-induced: Status: Acute (4) Non-insulin dependent diabetes mellitus: Status: Acute (5) Cholelithiasis: Status: Chronic Qualifiers: Biliary obstruction: without biliary obstruction Cholecystitis presence: without cholecystitis Cholelithiasis location: gallbladder Qualified Code(s): K80.20 - Calculus of gallbladder without cholecystitis without obstruction (6) Mild intellectual disability: Status: Chronic (7) Anxiety: Status: Chronic (8) Mood disorder: Status: Chronic (9) Chronic otitis media of both ears: Status: Chronic (10) History of placement of ear tubes: Status: Chronic (11) GERD (gastroesophageal reflux disease): Status: Chronic Qualifiers: Esophagitis presence: esophagitis presence not specified Qualified Code(s): K21.9 - Gastro-esophageal reflux disease without esophagitis Ms. Jorgensen is a 31yo woman w/ mild intellectual disability, HTN, non-IDDM2, lithiasis, GERD, chronic abdominal pain deemed to be due to cholelithiasis, anxiety/mood disorder, who presented to the ED on 03/13/2021 with complaints of dyspnea, and having tested positive for the COVID-19 virus at [facility] on 03/11/2021. Per history, patient's mother is also positive for the COVID-19 virus. Patient was at a camp at the time that she was diagnosed. COVID-19 test on presentation was negative. In the ED, she initially required 2L of O2 NC, and it quickly escalated to 4L. She was admitted for acute hypoxic respiratory failure. By the a.m. of 03/14, she had escalated to 15L [place]. #Acute hypoxic respiratory failure #COVID-19 viral infection #Bilateral Pneumonia -viral pneumonia due to COVID-19 infection - Switch to duonebs q4h. Started on - Follow-up CXR, inflammatory markers. - Continue Remdesivir, Dexamethasone #Drug induced Hyperglycemia - due to steroids #non-IDDM2 - Added Glargine 10units subq qhs to her MD SSI regimen. # Abdominal pain likely due to her chronic cholelithiasis # Chronic cholelithiasis - Was being seen by a surgeon to plan for a cholecystectomy when she contracted COVID-19 infection. # Anxiety/Mood d/o - Continue home meds #Hyper # HTN - On clonidine at home. Continued here at a reduced dose. # GERD - On Pantoprazole. # - On oral anticontraceptive tablets - held DVT ppx: Lovenox Attestations Medical Necessity Statement*: The patient requires acute hospitalization due to her acute hypoxic respiratory failure and increasing oxygenation requirements. Coding Level of Care Code Acute Hotel Or Motel Room Service Supervisor for g Fwd Exam Comprehensive Diagnoses Acute respiratory failure with hypoxia J96.01 Pneumonia due to COVID-19 virus U07.1; J12.82 Hyperglycemia, drug-induced R73.9; T50.905A Non-insulin dependent diabetes mellitus Cholelithiasis K80.20 Biliary obstruction: without biliary obstruction Cholecystitis presence: without cholecystitis Cholelithiasis location: gallbladder Mild intellectual disability F70 Anxiety F41.9 Mood disorder F39 Chronic otitis media of both ears H66.93 History of placement of ear tubes Z96.22 GERD (gastroesophageal reflux disease) K21.9 Esophagitis presence: esophagitis presence not specified
[2021-03-15] MEDS: dexamethasone 4 mg/mL INJ 6 MG IVP (09:08)
[2021-03-15] MEDS: pantoprazole DR 40 mg Tablet PO (09:08)
[2021-03-15] MEDS: ascorbic acid 500 mg Tablet PO ×2 (09:08→19:08)
[2021-03-15] MEDS: zinc gluconate 50 mg Tablet PO (09:08)
[2021-03-15] MEDS: cholecalciferol (vitamin D3) 1,000 unit Tablet 2000 UNIT PO (09:08)
[2021-03-15 09:29] LABS: NT Pro B Type Natriuretic Pept 151 pg/mL (0-125)
[2021-03-15] MEDS: enoxaparin 40 mg/0.4 mL Syringe SUBCUT (09:55)
[2021-03-15 11:36] LABS: Glucose Point of Care 290 mg/dL (70-110)
[2021-03-15] MEDS: LORazepam 2 mg/mL INJ 1 mL IVP (13:53)
[2021-03-15 17:08] LABS: Glucose Point of Care 259 mg/dL (70-110)
[2021-03-15] MEDS: montelukast sodium 10 mg Tablet PO (19:09)
[2021-03-15] MEDS: remdesivir 100 MG in sodium chloride 0.9% (100 ml) 100 ML IV (19:10)
[2021-03-15] MEDS: ipratropium-albuterol 3 mL Neb INHALATION ×2 (19:40→23:55)
[2021-03-15 20:58] LABS: Glucose Point of Care 325 mg/dL (70-110)
[2021-03-15] MEDS: insulin glargine 100 units/1 mL 10 UNIT SUBCUT (21:01)
[2021-03-15] MEDS: prazosin 1 mg Capsule PO (21:22)
[2021-03-15] MEDS: trazodone 100 mg Tablet PO (21:22)
[2021-03-16] VITALS (22 sets, daily range): BP systolic 96–126; BP diastolic 61–77; PULSE 68–89; RESP 18–38; TEMP 36.7–36.8; O2SAT 86–97
[2021-03-16] MEDS: ipratropium-albuterol 3 mL Neb INHALATION ×6 (03:15→23:33)
[2021-03-16 03:57] LABS: Quest SARS-CoV-2 RNA DETECTED (NOT DETECTED)
[2021-03-16] MEDS: venlafaxine ER (24HR) 75 mg Capsule 225 MG PO (05:56)
[2021-03-16 06:06] LABS: Erythrocyte Sedimentation Rate 66 mm/hr (0-15)
[2021-03-16 06:34] LABS: Glucose Point of Care 183 mg/dL (70-110)
[2021-03-16] MEDS: dexamethasone 4 mg/mL INJ 6 MG IVP (07:41)
[2021-03-16] MEDS: bisacodyl 5 mg Tablet 10 MG PO (07:44)
[2021-03-16] MEDS: loratadine 10 mg Tablet PO (10:00)
[2021-03-16] MEDS: ascorbic acid 500 mg Tablet PO ×2 (10:00→17:44)
[2021-03-16] MEDS: enoxaparin 40 mg/0.4 mL Syringe SUBCUT (10:00)
[2021-03-16] MEDS: pantoprazole DR 40 mg Tablet PO (10:00)
[2021-03-16] MEDS: calcium carbonate 500 mg Chew Tablet 1000 MG PO (10:02)
[2021-03-16] MEDS: zinc gluconate 50 mg Tablet PO (11:00)
[2021-03-16] MEDS: cholecalciferol (vitamin D3) 1,000 unit Tablet 2000 UNIT PO (11:00)
[2021-03-16 11:31] LABS: Glucose Point of Care 275 mg/dL (70-110)
--- NOTE | 2021-03-16 14:34 | P.PN_ITS ---
Subjective Subjective: Interval history: Patient was dyspneic after her breathing treatments. She would desat due to coughing, and pssible anxiety. She is on heated Hiflo with O2 sats at 92%. Per nurse, she sits up and gets up and walks in the room. The patient was seen today, and she complains of sore throat due to coughing after she has her breathing treatments. She continues to have a healthy appetite, including eating broccoli, which her mother states that she does not like to eat normally. She continues to endorse abdominal pain, primarily in the right upper quadrant. Mother is hesitant to have her get Ativan IV push, because she states that when she had it overnight, it affected her respirations and O2 sats. Patient's mother states that the patient has not had a BM in about 6 days. Vitals/I&O/Wt Last Vital Signs Temp 98.2 F 03/16/21 04:00 Pulse 88 03/16/21 11:23 Resp 22 H 03/16/21 11:02 BP 108/62 03/16/21 10:00 Pulse Ox 92 03/16/21 11:02 03/15/21 03/16/21 03/16/21 22:59 06:59 14:59 Intake Total 300 / 81846 480 / 480 Output Total 850 / 1570 700 / 2270 Balance -550 / 83011 -700 / 71058 480 / 480 Physical Exam Const: COMMON NORMALS: no acute distress GENERAL APPEARANCE: cooperative a nd comfortable NUTRITIONAL APPEARANCE: overweight ORIENTAT ION/CONSCIOUSNESS: Yes awake, Yes oriented to person, Yes oriented to place and Yes oriented to time HENMT: COMMON NORMALS: normocephalic, atraumatic, external ears normal and Normal external nose present HEAD & SCALP: normocephalic and atraumatic FACE & SINUS: normal facial exam NOSE: Normal external nose present EXTERNAL EAR: Yes external ears normal MOUTH: Normal oral and palatal mucosa present Eye: COMMON NORMALS: Equal, round and reactive pupils present and conjunctivae normal CONJUNCTIVA: Yes conjunctivae normal PUPIL: Yes Equal, round and reactive pupils present EOM: No EOM abnormal Neck/C-Spine: COMMON NORMALS: no lymphadenopathy and Thyroid normal GENERAL: Yes trachea midline and No anterior neck swelling THYROID: Thyroid normal CERVICAL SPINE: Yes cervical ROM normal Resp: AUSCULTATION: crackles Laterality: right and diminished lung sounds on the right (RLL) and on the left (LML and LLL) GI: COMMON NORMALS: Soft to palpation and No hepatosplenomegaly present INSPECTION: Yes normal to inspection AUSCULTATION: Yes normoactive bowel sounds PALPATION: Yes Soft to palpation, Yes Tenderness to palpation present (GI), No Guarding due to palpation present (GI), No Rigid due to palpation, Yes No hepatosplenomegaly present and No Rebound tenderness present Extremity: GENERAL: No clubbing, No cyanosis and No edema Neuro: SENSORIUM/ORIENTATION: Yes oriented to person, Yes oriented to place and Yes oriented to time Psych: COMMON NORMALS: speech normal ATTITUDE: Yes engaged ACTIVITY/MOTOR BEHAVIOR: Yes appropriate eye contact SPEECH: Yes normal speech MOOD & AFFECT: Yes euthymic mood (happily eating. ) Skin: COMMON NORMALS: no rashes or lesions noted GENERAL SKIN EXAM: no rashes or lesions noted Data : 03/15/21 06:20 03/15/21 06:20 A&P Assessment and plan (1) Acute respiratory failure with hypoxia: Status: Acute (2) Pneumonia due to COVID-19 virus: Status: Acute (3) Hyperglycemia, drug-induced: Status: Acute (4) Non-insulin dependent diabetes mellitus: Status: Acute (5) Cholelithiasis: Status: Chronic Qualifiers: Cholelithiasis location: gallbladder Cholecystitis presence: without cholecystitis Biliary obstruction: without biliary obstruction Qualified Code(s): K80.20 - Calculus of gallbladder without cholecystitis without obstruction (6) Mild intellectual disability: Status: Chronic (7) Anxiety: Status: Chronic (8) Mood disorder: Status: Chronic (9) Chronic otitis media of both ears: Status: Chronic (10) History of placement of ear tubes: Status: Chronic (11) GERD (gastroesophageal reflux disease): Status: Chronic Qualifiers: Esophagitis presence: esophagitis presence not specified Qualified Code(s): K21.9 - Gastro-esophageal reflux disease without esophagitis Ms. Jorgensen is a 31yo woman w/ mild intellectual disability, HTN, non- IDDM2, lithiasis, GERD, chronic abdominal pain deemed to be due to cholelithiasis, anxiety/mood disorder, who presented to the ED on 03/13/2021 with complaints of dyspnea, and having tested positive for the COVID-19 virus at [facility] on 03/11/2021. Per history, patient's mother is also positive for the COVID-19 virus. Patient was at a camp at the time that she was diagnosed. COVID-19 test on presentation was negative. In the ED, she initially required 2L of O2 NC, and it quickly escalated to 4L. She was admitted for acute hypoxic respiratory failure. By the a.m. of 03/14, she had escalated to 15L Hiflo NC. #Acute hypoxic respiratory failure #COVID-19 viral infection #Bilateral Pneumonia -viral pneumonia due to COVID-19 infection - Switch to duonebs q4h. Started on - Follow-up CXR, inflammatory markers. - Continue Remdesivir, Dexamethasone - Phenol throat spray for sore throat. #Drug induced Hyperglycemia - due to steroids #non-IDDM2 - Added Glargine 10units subq qhs & Insulin 7units TID w/ meals to her MD SSI regimen. # Abdominal pain likely due to her chronic cholelithiasis # Chronic cholelithiasis - Was being seen by a surgeon to plan for a cholecystectomy when she contracted COVID-19 infection. # Anxiety/Mood d/o - Continue home meds # HTN? - On clonidine at home. Continued here at a reduced dose. - Per nurse, patient's Mom states that patient is on Clonidine for facial tics. Will continue at same dose and monitor BP. # GERD - On Pantoprazole. # - On oral anticontraceptive tablets - held # Constipation - Ordered Lactulose and Bisacodyl. DVT ppx: Lovenox Attestations Medical Necessity Statement*: Patient requires continued hospitalization due to her acute hypoxic respiratory failure, COVID-19 viral infection, bilateral pneumonia, and drug-induced hyperglycemia Coding Level of Care Code Acute Attending Anesthesiologist for [facility] Diagnoses Acute respiratory failure with hypoxia J96.01 Pneumonia due to COVID-19 virus U07.1; J12.82 Hyperglycemia, drug-induced R73.9; T50.905A Non-insulin dependent diabetes mellitus Cholelithiasis K80.20 Cholelithiasis location: gallbladder Cholecystitis presence: without cholecystitis Biliary obstruction: without biliary obstruction Mild intellectual disability F70 Anxiety F41.9 Mood disorder F39 Chronic otitis media of both ears H66.93 History of placement of ear tubes Z96.22 GERD (gastroesophageal reflux disease) K21.9 Esophagitis presence: esophagitis presence not specified
[2021-03-16] MEDS: remdesivir 100 MG in sodium chloride 0.9% (100 ml) 100 ML IV (16:18)
[2021-03-16 16:38] LABS: Glucose Point of Care 361 mg/dL (70-110)
[2021-03-16] MEDS: montelukast sodium 10 mg Tablet PO (17:44)
[2021-03-16 20:22] LABS: Glucose Point of Care 306 mg/dL (70-110)
[2021-03-16] MEDS: insulin glargine 100 units/1 mL 10 UNIT SUBCUT (20:34)
[2021-03-16] MEDS: prazosin 1 mg Capsule PO (20:38)
[2021-03-16] MEDS: trazodone 100 mg Tablet PO (20:38)
[2021-03-17] VITALS (20 sets, daily range): BP systolic 89–127; BP diastolic 68–83; PULSE 65–90; RESP 18–37; TEMP 36.6–37.1; O2SAT 90–97
[2021-03-17] MEDS: ipratropium-albuterol 3 mL Neb INHALATION ×5 (03:36→20:30)
[2021-03-17] MEDS: venlafaxine ER (24HR) 75 mg Capsule 225 MG PO (05:47)
[2021-03-17 06:21] LABS: Erythrocyte Sedimentation Rate 70 mm/hr (0-15)
[2021-03-17 06:52] LABS: Glucose Point of Care 133 mg/dL (70-110)
[2021-03-17] MEDS: dexamethasone 4 mg/mL INJ 6 MG IVP (07:27)
--- NOTE | 2021-03-17 08:27 | PC.SOCIAL ---
IMM Update Spoke to pt's mother to update her on pg.2 medicare update. Verbalized understanding. Gave copy to nurse to place it pt's room (covid precautions). Placed initialed, timed, dated copy in chart.
[2021-03-17] MEDS: cholecalciferol (vitamin D3) 1,000 unit Tablet 2000 UNIT PO (08:39)
[2021-03-17] MEDS: zinc gluconate 50 mg Tablet PO (08:39)
[2021-03-17] MEDS: enoxaparin 40 mg/0.4 mL Syringe SUBCUT (08:39)
[2021-03-17] MEDS: ascorbic acid 500 mg Tablet PO ×2 (08:39→17:45)
[2021-03-17] MEDS: pantoprazole DR 40 mg Tablet PO (08:39)
[2021-03-17 10:32] LABS: Glucose Point of Care 247 mg/dL (70-110)
[2021-03-17] MEDS: phenol oral Spray 177 mL 2 SPRAY MUCOUS MEM (11:17)
[2021-03-17] MEDS: bisacodyl 5 mg Tablet 10 MG PO (11:17)
--- NOTE | 2021-03-17 15:05 | P.PN_ITS ---
Subjective Subjective: Interval history: Overnight, patient was offered bowel regimen for her constipation, and it was declined because they were concerned that it would make her abdomen cramp. This morning, patient was weaned to 80% FiO2 and 40 L/min of heated high flow O2, but by late this afternoon, she was weaned to 60% FiO2 and 35lpm O2. Vitals/I&O/Wt Last Vital Signs Temp 98.7 F 03/17/21 12:00 Pulse 84 03/17/21 12:59 Resp 26 H 03/17/21 12:50 BP 89/68 03/17/21 07:36 Pulse Ox 96 03/17/21 12:50 03/17/21 03/17/21 03/17/21 06:59 14:59 22:59 Intake Total 460 / 1540 660 / 660 Output Total 550 / 2100 Balance -90 / -560 660 / 660 Physical Exam Const: COMMON NORMALS: no acute distress GENERAL APPEARANCE: cooperative and comfortable NUTRITIONAL APPEARANCE: overweight ORIENTATION/CONSCIOUSNESS: Yes awake, Yes oriented to person, Yes oriented to place and Yes oriented to time HENMT: COMMON NORMALS: normocephalic, atraumatic, external ears normal and Normal external nose present HEAD & SCALP: normocephalic and atraumatic FACE & SINUS: normal facial exam NOSE: Normal external nose present EXTERNAL EAR: Yes external ears normal MOUTH: Normal oral and palatal mucosa present Eye: COMMON NORMALS: Equal, round and reactive pupils present and conjunctivae normal CONJUNCTIVA: Yes conjunctivae normal PUPIL: Yes Equal, round and reactive pupils present EOM: No EOM abnormal Neck/C-Spine: COMMON NORMALS: no lymphadenopathy and Thyroid normal GENERAL: Yes trachea midline and No anterior neck swelling THYROID: Thyroid normal CERVICAL SPINE: Yes cervical ROM normal Resp: AUSCULTATION: crackles Laterality: right and diminished lung sounds on the right (RLL) and on the left (LML and LLL) GI: COMMON NORMALS: Soft to palpation and No hepatosplenomegaly present INSPECTION: Yes normal to inspection AUSCULTATION: Yes normoactive bowel sounds PALPATION: Yes Soft to palpation, Yes Tenderness to palpation present (GI), No Guarding due to palpation present (GI), No Rigid due to palpation, Yes No hepatosplenomegaly present and No Rebound tenderness present Extremity: GENERAL: No clubbing, No cyanosis and No edema Neuro: SENSORIUM/ORIENTATION: Yes oriented to person, Yes oriented to place and Yes oriented to time Psych: COMMON NORMALS: speech normal ATTITUDE: Yes engaged ACTIVITY/MOTOR BEHAVIOR: Yes appropriate eye contact SPEECH: Yes normal speech MOOD & AFFECT: Yes euthymic mood (happily eating. ) Skin: COMMON NORMALS: no rashes or lesions noted GENERAL SKIN EXAM: no rashes or lesions noted Data : 03/15/21 06:20 03/15/21 06:20 A&P Assessment and plan (1) Acute respiratory failure with hypoxia: Status: Acute (2) Pneumonia due to COVID-19 virus: Status: Acute (3) Hyperglycemia, drug-induced: Status: Acute (4) Non-insulin dependent diabetes mellitus: Status: Acute (5) Cholelithiasis: Status: Chronic Qualifiers: Cholelithiasis location: gallbladder Cholecystitis presence: without cholecystitis Biliary obstruction: without biliary obstruction Qualified Code(s): K80.20 - Calculus of gallbladder without cholecystitis without obstruction (6) Mild intellectual disability: Status: Chronic (7) Anxiety: Status: Chronic (8) Mood disorder: Status: Chronic (9) Chronic otitis media of both ears: Status: Chronic (10) History of placement of ear tubes: Status: Chronic (11) GERD (gastroesophageal reflux disease): Status: Chronic Qualifiers: Esophagitis presence: esophagitis presence not specified Qualified Code(s): K21.9 - Gastro-esophageal reflux disease without esophagitis Ms. Jorgensen is a 31yo woman w/ mild intellectual disability, HTN, non- IDDM2, lithiasis, GERD, chronic abdominal pain deemed to be due to cholelithiasis, anxiety/mood disorder, who presented to the ED on 03/13/2021 with complaints of dyspnea, and having tested positive for the COVID-19 virus at [facility] on 03/11/2021. Per history, patient's mother is also positive for the COVID-19 virus. Patient was at a camp at the time that she was diagnosed. COVID-19 test on presentation was negative. In the ED, she initially required 2L of O2 NC, and it quickly escalated to 4L. She was admitted for acute hypoxic respiratory failure. By the a.m. of 03/14, she had escalated to 15L Hiflo NC. As of 03/16/2021, she is on heated Hiflo O2. #Acute hypoxic respiratory failure #COVID-19 viral infection #Bilateral Pneumonia -viral pneumonia due to COVID-19 infection - Switch to duonebs q4h. Started on - I considered administering Tocilizumab, but CXR on 03/17/2021 shows no changes. Furthermore, she is being weaned on her heated high flow O2, and improvement appears significant enough to hold on administering Tocilizumab. Continue periodic CXR, inflammatory markers studies. - s/p Remdesivir. Continue Dexamethasone - Phenol throat spray for sore throat. #Drug induced Hyperglycemia - due to steroids #non-IDDM2 - Glargine 20units subq qhs & Insulin 10units TID w/ meals to her MD SSI regimen. # Abdominal pain likely due to her chronic cholelithiasis # Chronic cholelithiasis - Was being seen by a surgeon to plan for a cholecystectomy when she contracted COVID-19 infection. # Anxiety/Mood d/o - Continue home meds # HTN? - On clonidine at home. Continued here at a reduced dose. - Per nurse, patient's Mom states that patient is on Clonidine for facial tics. Will continue at same dose and monitor BP. # GERD - On Pantoprazole. # - On oral anticontraceptive tablets - held # Constipation - Ordered Lactulose and Bisacodyl. DVT ppx: Lovenox Attestations Medical Necessity Statement*: Patient requires continued hospitalization for acute hypoxic respiratory failure on heated high flow O2, and her drug-induced hyperglycemia. Coding Level of Care Code Acute [facility] Techn[facility] Diagnoses Acute respiratory failure with hypoxia J96.01 Pneumonia due to COVID-19 virus U07.1; J12.82 Hyperglycemia, drug-induced R73.9; T50.905A Non-insulin dependent diabetes mellitus Cholelithiasis K80.20 Cholelithiasis location: gallbladder Cholecystitis presence: without cholecystitis Biliary obstruction: without biliary obstruction Mild intellectual disability F70 Anxiety F41.9 Mood disorder F39 Chronic otitis media of both ears H66.93 History of placement of ear tubes Z96.22 GERD (gastroesophageal reflux disease) K21.9 Esophagitis presence: esophagitis presence not specified
--- NOTE | 2021-03-17 15:05 | XR_ITS ---
WS: [id number] Portable AP upright chest, 03/17/2021 Clinical Data: hypoxic respiratory failure Comparison: Portable chest, 03/15/2021. Findings: The bilateral patchy pulmonary opacities have not changed. The heart size remains same. No pneumothorax is present. Monitor leads are on the chest wall. XR/XR chest 1V portable [id number] Impression: No change in bilateral pulmonary opacities consistent with pneumonia.
[2021-03-17 16:48] LABS: Glucose Point of Care 262 mg/dL (70-110)
--- NOTE | 2021-03-17 17:32 | PC.NURSE ---
physician wanted to hold acetemra for time being
[2021-03-17] MEDS: remdesivir 100 MG in sodium chloride 0.9% (100 ml) 100 ML IV (17:45)
[2021-03-17] MEDS: montelukast sodium 10 mg Tablet PO (17:47)
[2021-03-17 21:27] LABS: Glucose Point of Care 267 mg/dL (70-110)
[2021-03-17] MEDS: prazosin 1 mg Capsule PO (21:41)
[2021-03-17] MEDS: trazodone 100 mg Tablet PO (21:41)
[2021-03-17] MEDS: insulin glargine 100 units/1 mL 20 UNIT SUBCUT (21:42)
[2021-03-17] MEDS: alum-mag-hydroxide-sime 30 mL UDC PO (23:27)
[2021-03-18] VITALS (20 sets, daily range): BP systolic 94–136; BP diastolic 58–95; PULSE 61–87; RESP 2–26; TEMP 36.6–37; O2SAT 85–99
[2021-03-18] MEDS: venlafaxine ER (24HR) 75 mg Capsule 225 MG PO (06:36)
[2021-03-18 06:47] LABS: Glucose Point of Care 127 mg/dL (70-110)
[2021-03-18] MEDS: cholecalciferol (vitamin D3) 1,000 unit Tablet 2000 UNIT PO (07:46)
[2021-03-18] MEDS: zinc gluconate 50 mg Tablet PO (07:46)
[2021-03-18] MEDS: pantoprazole DR 40 mg Tablet PO (07:46)
[2021-03-18] MEDS: ascorbic acid 500 mg Tablet PO ×2 (07:46→17:20)
[2021-03-18] MEDS: enoxaparin 40 mg/0.4 mL Syringe SUBCUT (07:47)
[2021-03-18] MEDS: dexamethasone 4 mg/mL INJ 6 MG IVP (07:56)
[2021-03-18] MEDS: ipratropium-albuterol 3 mL Neb INHALATION ×6 (08:45→23:03)
[2021-03-18] MEDS: alum-mag-hydroxide-sime 30 mL UDC PO (09:48)
[2021-03-18 10:51] LABS: Glucose Point of Care 232 mg/dL (70-110)
[2021-03-18 16:38] LABS: Glucose Point of Care 280 mg/dL (70-110)
[2021-03-18] MEDS: montelukast sodium 10 mg Tablet PO (17:20)
--- NOTE | 2021-03-18 19:34 | PM.PN ---
Subjective Subjective: Interval history: Patient had multiple BMs during the day. Because she has not been on her control pills, she is having a breakthrough menstrual cycle, with the associated abdominal cramping. She was weaned off heated high flow O2 to high flow nasal cannula at 12 L. Vitals/I&O/Wt Last Vital Signs Temp 98.4 F 03/18/21 16:00 Pulse 65 03/18/21 19:23 Resp 18 03/18/21 19:23 BP 136/95 03/18/21 16:00 Pulse Ox 97 03/18/21 19:23 03/18/21 03/18/21 03/18/21 06:59 14:59 22:59 Intake Total 480 / 1720 840 / 840 360 / 1200 Output Total 500 / 500 Balance -20 / 1220 840 / 840 360 / 1200 Physical Exam Const: COMMON NORMALS: no acute distress GENERAL APPEARANCE: cooperative and comfortable NUTRITIONAL APPEARANCE: overweight ORIENTATION/CONSCIOUSNESS: Yes awake, Yes oriented to person, Yes oriented to place and Yes oriented to time HENMT: COMMON NORMALS: normocephalic, atraumatic, external ears normal and Normal external nose present HEAD & SCALP: normocephalic and atraumatic FACE & SINUS: normal facial exam NOSE: Normal external nose present EXTERNAL EAR: Yes external ears normal MOUTH: Normal oral and palatal mucosa present Eye: COMMON NORMALS: Equal, round and reactive pupils present and conjunctivae normal CONJUNCTIVA: Yes conjunctivae normal PUPIL: Yes Equal, round and reactive pupils present EOM: No EOM abnormal Neck/C-Spine: COMMON NORMALS: no lymphadenopathy and Thyroid normal GENERAL: Yes trachea midline and No anterior neck swelling THYROID: Thyroid normal CERVICAL SPINE: Yes cervical ROM normal Resp: AUSCULTATION: crackles Laterality: right and diminished lung sounds on the right (RLL) and on the left (LML and LLL) GI: COMMON NORMALS: Soft to palpation and No hepatosplenomegaly present INSPECTION: Yes normal to inspection AUSCULTATION: Yes normoactive bowel sounds PALPATION: Yes Soft to palpation, Yes Tenderness to palpation present (GI), No Guarding due to palpation present (GI), No Rigid due to palpation, Yes No hepatosplenomegaly present and No Rebound tenderness present Extremity: GENERAL: No clubbing, No cyanosis and No edema Neuro: SENSORIUM/ORIENTATION: Yes oriented to person, Yes oriented to place and Yes oriented to time Psych: COMMON NORMALS: speech normal ATTITUDE: Yes engaged ACTIVITY/MOTOR BEHAVIOR: Yes appropriate eye contact SPEECH: Yes normal speech MOOD & AFFECT: Yes euthymic mood (happily eating. ) Skin: COMMON NORMALS: no rashes or lesions noted GENERAL SKIN EXAM: no rashes or lesions noted Data : 03/15/21 06:20 03/15/21 06:20 A&P Assessment and plan (1) Acute respiratory failure with hypoxia: Status: Acute (2) Pneumonia due to COVID-19 virus: Status: Acute (3) Hyperglycemia, drug-induced: Status: Acute (4) Non-insulin dependent diabetes mellitus: Status: Acute (5) Cholelithiasis: Status: Chronic Qualifiers: Cholelithiasis location: gallbladder Cholecystitis presence: without cholecystitis Biliary obstruction: without biliary obstruction Qualified Code(s): K80.20 - Calculus of gallbladder without cholecystitis without obstruction (6) Mild intellectual disability: Status: Chronic (7) Anxiety: Status: Chronic (8) Mood disorder: Status: Chronic (9) Chronic otitis media of both ears: Status: Chronic (10) History of placement of ear tubes: Status: Chronic (11) GERD (gastroesophageal reflux disease): Status: Chronic Qualifiers: Esophagitis presence: esophagitis presence not specified Qualified Code(s): K21.9 - Gastro-esophageal reflux disease without esophagitis Ms. Jorgensen is a 31yo woman w/ mild intellectual disability, HTN, non-IDDM2, lithiasis, GERD, chronic abdominal pain deemed to be due to cholelithiasis, anxiety/mood disorder, who presented to the ED on 03/13/2021 with complaints of dyspnea, and having tested positive for the COVID-19 virus at [facility] on 03/11/2021. Per history, patient's mother is also positive for the COVID-19 virus. Patient was at a camp at the time that she was diagnosed. COVID-19 test on presentation was negative. In the ED, she initially required 2L of O2 NC, and it quickly escalated to 4L. She was admitted for acute hypoxic respiratory failure. By the a.m. of 03/14, she had escalated to 15L Hiflo NC. As of 03/16/2021, she is on heated Hiflo O2. She was weaned to high flow nasal cannula. #Acute hypoxic respiratory failure #COVID-19 viral infection #Bilateral Pneumonia -viral pneumonia due to COVID-19 infection - Switch to duonebs q4h. Started on - I considered administering Tocilizumab, but CXR on 03/17/2021 shows no changes. Furthermore, she is being weaned on her heated high flow O2, and improvement appears significant enough to hold on administering Tocilizumab. Continue periodic CXR, inflammatory markers studies. - s/p Remdesivir. Continue Dexamethasone - Phenol throat spray for sore throat. #Drug induced Hyperglycemia - due to steroids #non-IDDM2 - Glargine 20units subq qhs & Insulin 10units TID w/ meals to her MD SSI regimen. # Abdominal pain likely due to her chronic cholelithiasis # Chronic cholelithiasis - Was being seen by a surgeon to plan for a cholecystectomy when she contracted COVID-19 infection. # Anxiety/Mood d/o - Continue home meds # HTN? - On clonidine at home. Continued here at a reduced dose. - Per nurse, patient's Mom states that patient is on Clonidine for facial tics. Will continue at same dose and monitor BP. # GERD - On Pantoprazole. # - On oral anticontraceptive tablets - held. Ibupropen 600mg TID prn. # Constipation - Ordered Lactulose and Bisacodyl - Resolved. DVT ppx: Lovenox Attestations Medical Necessity Statement*: Patient requires continued hospitalization due to her high O2 requirements for acute hypoxic respiratory failure due to Covid pneumonia. Coding Level of Care Code Acute Paint Line Supervisor for [facility] Diagnoses Acute respiratory failure with hypoxia J96.01 Pneumonia due to COVID-19 virus U07.1; J12.82 Hyperglycemia, drug-induced R73.9; T50.905A Non-insulin dependent diabetes mellitus Cholelithiasis K80.20 Cholelithiasis location: gallbladder Cholecystitis presence: without cholecystitis Biliary obstruction: without biliary obstruction Mild intellectual disability F70 Anxiety F41.9 Mood disorder F39 Chronic otitis media of both ears H66.93 History of placement of ear tubes Z96.22 GERD (gastroesophageal reflux disease) K21.9 Esophagitis presence: esophagitis presence not specified
--- NOTE | 2021-03-18 20:28 | PC.NURSE ---
Bedside report received from Ashley PAREDES. Patient is A & O mother at bedside. No C/O of pain or other needs at this time.
[2021-03-18 21:41] LABS: Glucose Point of Care 204 mg/dL (70-110)
[2021-03-18] MEDS: prazosin 1 mg Capsule PO (22:10)
[2021-03-18] MEDS: insulin glargine 100 units/1 mL 20 UNIT SUBCUT (22:10)
[2021-03-18] MEDS: ibuprofen 600 mg Tablet PO (22:11)
[2021-03-18] MEDS: trazodone 100 mg Tablet PO (22:11)
[2021-03-19] VITALS (21 sets, daily range): BP systolic 111–156; BP diastolic 58–80; PULSE 68–90; RESP 13–23; TEMP 36.3–36.8; O2SAT 94–100
[2021-03-19] MEDS: ipratropium-albuterol 3 mL Neb INHALATION ×6 (03:18→23:21)
[2021-03-19] MEDS: venlafaxine ER (24HR) 75 mg Capsule 225 MG PO (06:16)
[2021-03-19 07:05] LABS: Glucose Point of Care 138 mg/dL (70-110)
[2021-03-19] MEDS: ibuprofen 600 mg Tablet PO ×2 (07:14→22:07)
--- NOTE | 2021-03-19 07:56 | XR_ITS ---
WS: [id number] Portable AP upright chest, 03/19/2021 Clinical Data: Hypoxic respiratory failure Comparison: Portable chest, 03/17/2021. Findings: The bilateral patchy pulmonary opacities remain the same. The heart size is not changed. Mo nitor leads are on the chest wall. XR/XR chest 1V portable [id number] Impression: No change in bilateral pulmonary opacities.
[2021-03-19] MEDS: dexamethasone 4 mg/mL INJ 6 MG IVP (08:19)
[2021-03-19] MEDS: pantoprazole DR 40 mg Tablet PO (08:37)
[2021-03-19] MEDS: ascorbic acid 500 mg Tablet PO ×2 (08:37→17:57)
[2021-03-19] MEDS: zinc gluconate 50 mg Tablet PO (08:37)
[2021-03-19] MEDS: cholecalciferol (vitamin D3) 1,000 unit Tablet 2000 UNIT PO (08:37)
[2021-03-19] MEDS: enoxaparin 40 mg/0.4 mL Syringe SUBCUT (08:38)
--- NOTE | 2021-03-19 08:42 | PC.SOCIAL ---
IMM Update Attempted to update pt and pt's mother of medicare rights via pt's room phone. Pt asked CM to call back later. Placed initial, dated, timed copy in pt's chart and asked nurse to place copy in pt's room due to covid precautions.
[2021-03-19 09:47] LABS: Hematocrit 40.9 % (37.0-47.0); Hemoglobin 12.3 g/dL (11.5-15.3); Mean Corpuscular HGB Conc 30.1 g/dL (30.0-36.0); Mean Corpuscular Hemoglobin 25.2 pg (28.0-34.0); Mean Corpuscular Volume 83.6 fL (81-99); Mean Platelet Volume 9.2 fL (7.4-10.4); Platelet Count 449 10^3/cmm (130-400); Red Blood Count 4.89 10^6/uL (4.1-5.3); Red Cell Distribution Width 13.8 % (12.1-15.1); White Blood Count 13.7 10^3/uL (4.0-10.0)
[2021-03-19 10:07] LABS: Alanine Aminotransferase 60 U/L (0-33); Albumin Level 3.3 g/dL (3.5-5.2); Alkaline Phosphatase 102 IU/L (35-105); Anion Gap 12.8 (5-19); Aspartate Amino Transferase 49 U/L (0-32); Blood Urea Nitrogen 17 mg/dL (6-20); Calcium 9.1 mg/dL (8.5-10.5); Carbon Dioxide 30 mmol/L (22-29); Chloride 97 mmol/L (98-107); Globulin 2.9 g/dL (1.3-4.6); Glomerular Filtration Rate 97.6 mL/min (90-130); Glucose 144 mg/dL (65-115); Magnesium 2.2 mg/dL (1.7-2.3); Osmolality Calculated 286 mOsm/kg (285-295); Phosphorus 4.4 mg/dL (2.5-4.5); Potassium 3.8 mmol/L (3.5-5.1); Sodium 136 mmol/L (136-145); Total Bilirubin 0.4 mg/dL (0.15-1.2); Total Protein 6.2 g/dL (6.6-8.7)
[2021-03-19 10:15] LABS: Slide Review Slide Review Perform
[2021-03-19 10:16] LABS: Absolute Eosinophils 0.1 10^3/cmm (0.0-0.7); Absolute Neutrophil 5.8 10^3/cmm (1.4-6.5); Absolute Segmented Neutrophil 5.5 10/cmm (1.6-7.1); Band Neutrophils Absolute 0.3 10^3/cmm (0.0-1.2); Eosinophils 1 %; Lymphocytes 45 %; Lymphocytes Absolute 6.4 10^3/cmm (1.2-3.4); Monocytes Absolute 0.4 10^3/cmm (0.1-0.6); Platelet Estimate Normal (Normal); Segmented Neutrophils 40 %; Total Cells Counted 100 (0-100)
[2021-03-19 11:58] LABS: Glucose Point of Care 150 mg/dL (70-110)
[2021-03-19 16:59] LABS: Glucose Point of Care 251 mg/dL (70-110)
[2021-03-19] MEDS: montelukast sodium 10 mg Tablet PO (17:57)
[2021-03-19 21:01] LABS: Glucose Point of Care 177 mg/dL (70-110)
--- NOTE | 2021-03-19 22:03 | P.PN_ITS ---
Subjective Subjective: Interval history: This morning, patient states that the ibuprofen that was given to her for her abdominal cramp improved her abdominal pain. States that her cough has improved. This morning, she was weaned to 8 L high flow nasal cannula. Medications: Reviewed: Yes Vitals/I&O/Wt Last Vital Signs Temp 98.3 F 03/19/21 12:30 Pulse 74 03/19/21 19:33 Resp 18 03/19/21 19:23 BP 129/80 03/19/21 15:12 Pulse Ox 96 03/19/21 19:23 03/19/21 03/19/21 03/19/21 06:59 14:59 22:59 Intake Total 580 / 580 118 / 698 Output Total 200 / 550 Balance -200 / 650 580 / 580 118 / 698 Physical Exam Const: COMMON NORMALS: no acute distress GENERAL APPEARANCE: cooperative and comfortable NUTRITIONAL APPEARANCE: overweight ORIENTATION/CONSCIOUSNESS: Yes awake, Yes oriented to person, Yes oriented to place and Yes oriented to time HENMT: COMMON NORMALS: normocephalic, atraumatic, external ears normal and Normal external nose present HEAD & SCALP: normocephalic and atraumatic FACE & SINUS: normal facial exam NOSE: Normal external nose present EXTERNAL EAR: Yes external ears normal MOUTH: Normal oral and palatal mucosa present Eye: COMMON NORMALS: Equal, round and reactive pupils present and conjunctivae normal CONJUNCTIVA: Yes conjunctivae normal PUPIL: Yes Equal, round and reactive pupils present EOM: No EOM abnormal Neck/C-Spine: COMMON NORMALS: no lymphadenopathy and Thyroid normal GENERAL: Yes trachea midline and No anterior neck swelling THYROID: Thyroid normal CERVICAL SPINE: Yes cervical ROM normal Resp: AUSCULTATION: diminished lung sounds bilateral (Bilateral lower lung lobes only) GI: COMMON NORMALS: Soft to palpation and No hepatosplenomegaly present INSPECTION: Yes normal to inspection AUSCULTATION: Yes normoactive bowel sounds PALPATION: Yes Soft to palpation, No Tenderness to palpation present (GI), No Guarding due to palpation present (GI), No Rigid due to palpation, Yes No hepatosplenomegaly present and No Rebound tenderness present Extremity: GENERAL: No clubbing, No cyanosis and No edema Neuro: SENSORIUM/ORIENTATION: Yes oriented to person, Yes oriented to place and Yes oriented to time Psych: COMMON NORMALS: speech normal ATTITUDE: Yes engaged ACTIVITY/MOTOR BEHAVIOR: Yes appropriate eye contact SPEECH: Yes normal speech MOOD & AFFECT: Yes euthymic mood (happily eating. ) Skin: COMMON NORMALS: no rashes or lesions noted GENERAL SKIN EXAM: no rashes or lesions noted Data : 03/19/21 09:28 03/19/21 09:28 A&P Assessment and plan (1) Acute respiratory failure with hypoxia: Status: Acute (2) Pneumonia due to COVID-19 virus: Status: Acute (3) Hyperglycemia, drug-induced: Status: Acute (4) Non-insulin dependent diabetes mellitus: Status: Acute (5) Cholelithiasis: Status: Chronic Qualifiers: Cholelithiasis location: gallbladder Cholecystitis presence: without cholecystitis Biliary obstruction: without biliary obstruction Qualified Cod e(s): K80.20 - Calculus of gallbladder without cholecystitis without obstruction (6) Mild intellectual disability: Status: Chronic (7) Anxiety: Status: Chronic (8) Mood disorder: Status: Chronic (9) Chronic otitis media of both ears: Status: Chronic (10) History of placement of ear tubes: Status: Chronic (11) GERD (gastroesophageal reflux disease): Status: Chronic Qualifiers: Esophagitis presence: esophagitis presence not specified Qualified Code(s): K21.9 - Gastro-esophageal reflux disease without esophagitis Ms. Jorgensen is a 31yo woman w/ mild intellectual disability, HTN, non-I DDM2, lithiasis, GERD, chronic abdominal pain deemed to be due to cholelithiasis, anxiety/mood disorder, who presented to the ED on 03/13/2021 with complaints of dyspnea, and having tested positive for the COVID-19 virus at [facility] on 03/11/2021. Per history, patient's mother is also positive for the COVID-19 virus. Patient was at a camp at the time that she was diagnosed. COVID-19 test on presentation was negative. In the ED, she initially required 2L of O2 NC, and it quickly escalated to 4L. She was admitted for acute hypoxic respiratory failure. By the a.m. of 03/14, she had escalated to 15L [place] NC. As of 03/16/2021, she is on heated Hif[place] O2. She was weaned to back to high flow nasal cannula on 03/18. . #Acute hypoxic respiratory failure #COVID-19 viral infection #Bilateral Pneumonia -viral pneumonia due to COVID-19 infection - Switch to duonebs qid. - s/p Remdesivir. - I considered administering Tocilizumab, but CXR on 03/17/2021 shows no changes. Furthermore, she is being weaned on her heated high flow O2, and improvement appears significant enough to hold on administering Tocilizumab. Continue periodic CXR, inflammatory markers studies. - Stopped Dexamethasone on 03/19 (6 days). - Phenol throat spray for sore throat. #Drug induced Hyperglycemia - due to steroids #non-IDDM2 - Glargine 20units subq qhs & Increased Insulin 15units for breakfast & lunch but 10units for dinner w/ meals to her MD SSI regimen. # Chronic cholelithiasis - Was being seen by a surgeon to plan for a cholecystectomy when she contracted COVID-19 infection. # Anxiety/Mood d/o - Continue home meds # HTN?, Facial tics - On clonidine at home. Continued here at a reduced dose. - Per nurse, patient's Mom states that patient is on Clonidine for facial tics. Will continue at same dose and monitor BP. # GERD - On Pantoprazole. # - On oral anticontraceptive tablets - held due to COVID-19 infection. Breakthrough menstruation began on 03/18. Ibupropen 600mg TID prn ordered. # Constipation - Ordered Lactulose and Bisacodyl - Resolved. DVT ppx: Lovenox Attestations Medical Necessity Statement*: Orders continued hospitalization for her acute hypoxic respiratory failure due to COVID-19 viral infection and bilateral pneumonia, and high oxygen requirements. 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[facility] Diagnoses Acute respiratory failure with hypoxia J96.01 Pneumonia due to COVID-19 virus U07.1; J12.82 Hyperglycemia, drug-induced R73.9; T50.905A Non-insulin dependent diabetes mellitus Cholelithiasis K80.20 Cholelithiasis location: gallbladder Cholecystitis presence: without cholecystitis Biliary obstruction: without biliary obstruction Mild intellectual disability F70 Anxiety F41.9 Mood disorder F39 Chronic otitis media of both ears H66.93 History of placement of ear tubes Z96.22 GERD (gastroesophageal reflux disease) K21.9 Esophagitis presence: esophagitis presence not specified
[2021-03-19] MEDS: insulin glargine 100 units/1 mL 20 UNIT SUBCUT (22:05)
[2021-03-19] MEDS: prazosin 1 mg Capsule PO (22:06)
[2021-03-19] MEDS: trazodone 100 mg Tablet PO (22:07)
[2021-03-20] VITALS (16 sets, daily range): BP systolic 103–115; BP diastolic 54–73; PULSE 67–93; RESP 16–23; TEMP 36.2–36.6; O2SAT 87–98
[2021-03-20] MEDS: acetaminophen 325 mg Tablet 650 MG PO (01:00)
[2021-03-20 02:05] LABS: Glucose Point of Care 140 mg/dL (70-110)
[2021-03-20 05:57] LABS: Hematocrit 40.8 % (37.0-47.0); Hemoglobin 12.4 g/dL (11.5-15.3); Mean Corpuscular HGB Conc 30.4 g/dL (30.0-36.0); Mean Corpuscular Volume 82.3 fL (81-99); Mean Platelet Volume 9.3 fL (7.4-10.4); Platelet Count 523 10^3/cmm (130-400); Red Blood Count 4.96 10^6/uL (4.1-5.3); Red Cell Distribution Width 14.1 % (12.1-15.1); White Blood Count 14.6 10^3/uL (4.0-10.0)
[2021-03-20] MEDS: venlafaxine ER (24HR) 75 mg Capsule 225 MG PO (05:58)
[2021-03-20 06:10] LABS: D Dimer <= 0.27 ug/mIFEU (0-0.59)
[2021-03-20 06:20] LABS: Alanine Aminotransferase 55 U/L (0-33); Albumin Level 3.5 g/dL (3.5-5.2); Alkaline Phosphatase 99 IU/L (35-105); Anion Gap 16.3 (5-19); Aspartate Amino Transferase 34 U/L (0-32); Blood Urea Nitrogen 16 mg/dL (6-20); C Reactive Protein 3.6 mg/L (0.0-4.9); Calcium 8.8 mg/dL (8.5-10.5); Carbon Dioxide 28 mmol/L (22-29); Chloride 98 mmol/L (98-107); Ferritin 364 ng/mL (15-150); Globulin 2.8 g/dL (1.3-4.6); Glomerular Filtration Rate 116.6 mL/min (90-130); Glucose 144 mg/dL (65-115); Lactate Dehydrogenase 275 U/L (135-214); Osmolality Calculated 290 mOsm/kg (285-295); Phosphorus 4.5 mg/dL (2.5-4.5); Potassium 4.3 mmol/L (3.5-5.1); Sodium 138 mmol/L (136-145); Total Bilirubin 0.4 mg/dL (0.15-1.2); Total Protein 6.3 g/dL (6.6-8.7)
[2021-03-20 06:44] LABS: Slide Review Slide Review Perform
[2021-03-20 06:45] LABS: Basophils # 0.1 10^3/uL (0.0-0.1); Basophils % 0.5 %; Eosinophils # 0.3 10^3/uL (0.0-0.8); Eosinophils % 1.7 %; Lymphocytes # 5.1 10^3/uL (0.8-4.8); Lymphocytes % 34.2 %; Monocytes # 1.2 10^3/uL (0.2-0.9); Neutrophils # 7.36 10^3/uL (1.8-7.7); Nucleated Red Blood Cells % 0 %; Positive C 1; Positive M 1
[2021-03-20 06:46] LABS: Neutrophils % 55.6 %
[2021-03-20 07:46] LABS: Glucose Point of Care 122 mg/dL (70-110)
[2021-03-20] MEDS: enoxaparin 40 mg/0.4 mL Syringe SUBCUT (08:28)
[2021-03-20] MEDS: cholecalciferol (vitamin D3) 1,000 unit Tablet 2000 UNIT PO (08:28)
[2021-03-20] MEDS: zinc gluconate 50 mg Tablet PO (08:28)
[2021-03-20] MEDS: ascorbic acid 500 mg Tablet PO ×2 (08:29→18:23)
[2021-03-20] MEDS: pantoprazole DR 40 mg Tablet PO (08:29)
[2021-03-20] MEDS: ipratropium-albuterol 3 mL Neb INHALATION ×4 (09:21→21:22)
[2021-03-20 11:35] LABS: Glucose Point of Care 139 mg/dL (70-110)
--- NOTE | 2021-03-20 13:36 | P.PN_ITS ---
Subjective Subjective: Interval history: Patient feeling better today, when I entered the room she was saturating well at 97% on room air, no active chest pain , shortness of breath, lethargy or diarrhea. She is complaining of abdominal cramps. Mother is at the bedside who is endorsing that her abdominal cramps are due to menstrual bleed that started after we stopped her OCPs Vitals/I&O/Wt Last Vital Signs Temp 97.1 F L 03/20/21 07:46 Pulse 80 03/20/21 12:10 Resp 20 H 03/20/21 11:56 BP 109/71 03/20/21 07:46 Pulse Ox 95 03/20/21 11:56 03/19/21 03/20/21 03/20/21 22:59 06:59 14:59 Intake Total 118 / 698 Output Total 300 / 300 200 / 500 Balance -182 / 398 -200 / 198 Physical Exam Narrative: EXAM NARRATIVE: Pleasant female No acute respiratory distress saturating well on room air during my evaluation Mother at the bedside S1, S2 sinus rhythm No signs of dehydration or fluid overload Abdomen soft, distended with obesity soft nontender no signs of peritonitis Lower extremity no edema gangrene or ulcer Bilateral breath sounds without adventitious rhonchi or crackles No joint swelling or signs of cellulitis Appropriate mood and affect Data : 03/20/21 04:49 03/20/21 04:49 A&P Assessment and plan (1) Hyperglycemia, drug-induced: Status: Acute (2) Non-insulin dependent diabetes mellitus: Status: Acute (3) Acute respiratory failure with hypoxia: Status: Acute (4) Respiratory failure with hypoxia: Status: Acute (5) Pneumonia due to COVID-19 virus: Status: Acute (6) Hypoxia: Status: Acute Additional A&P Information Acute hypoxic respiratory failure secondary to COVID-19 pneumonia In the ED, she initially required 2L of O2 NC, and it quickly escalated to 4L. She was admitted for acute hypoxic respiratory failure. By the a.m. of 03/14, she had escalated to 15L [place] NC. As of 03/16/2021, she is on heated Hiflo O2. She was weaned to back to high flow nasal cannula on 03/18. . 03/20 she is saturating well on room air 97% no acute respiratory distress Afebrile We will do home O2 evaluation and plan to discharge tomorrow Status post remdesivir Toclizumab not administered Drug-induced hyperglycemia due to use of steroids Currently euglycemic with sliding scale and scheduled insulin Menstrual bleeding Her bleeding started after we stopped her OCPs Patient complaining abdominal cramps has history of chronic cholelithiasis, for which she will need elective intervention Anxiety: Euthymic today Hypertension with facial tics Clonidine resumed at reduced dosage GERD: Continue Protonix DVT prophylaxis: Consistent carb diet Talked with her mother regarding quarantine: She will need to quarantine for next 2 weeks and avoid going to rehab Attestations Medical Necessity Statement*: Anticipating discharge tomorrow Time Spent in Patient Care: 30mins Coding Level of Care Code 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
[2021-03-20 17:09] LABS: Glucose Point of Care 204 mg/dL (70-110)
[2021-03-20] MEDS: montelukast sodium 10 mg Tablet PO (18:23)
--- NOTE | 2021-03-20 19:10 | PC.NURSE ---
Bedside report received from Ashley PAREDES. Patient is A & O. Patient has no C/O of pain or other needs at this time. Mother continues be at bedside with patient.
[2021-03-20 20:21] LABS: Glucose Point of Care 128 mg/dL (70-110)
[2021-03-20] MEDS: insulin glargine 100 units/1 mL 20 UNIT SUBCUT (21:34)
--- NOTE | 2021-03-20 22:00 | PC.NURSE ---
Patient had a very loose BM and abdominal cramping. Mother is requesting Imodium for diarrhea. Per Dr. Rivera we need to collect stool for a C-diff panel. If negative we can order Imodium
[2021-03-20] MEDS: prazosin 1 mg Capsule PO (22:22)
[2021-03-20] MEDS: trazodone 100 mg Tablet PO (22:23)
[2021-03-21] VITALS (7 sets, daily range): BP systolic 118–125; BP diastolic 55–68; PULSE 76–104; RESP 18–24; TEMP 36.6–37.1; O2SAT 83–95
--- NOTE | 2021-03-21 00:28 | PC.NURSE ---
Stool collected for C-diff. Cancelled by lab due to formed stool.
[2021-03-21] MEDS: venlafaxine ER (24HR) 75 mg Capsule 225 MG PO (06:00)
--- NOTE | 2021-03-21 06:06 | PC.NURSE ---
Patient refused morning BP and to wear the pulse ox. Patient states she is ready to go home.
[2021-03-21 06:54] LABS: Basophils # 0.1 10^3/uL (0.0-0.1); Basophils % 0.7 %; Eosinophils # 0.6 10^3/uL (0.0-0.8); Eosinophils % 4.9 %; Hematocrit 41.7 % (37.0-47.0); Hemoglobin 12.3 g/dL (11.5-15.3); Lymphocytes # 6.2 10^3/uL (0.8-4.8); Lymphocytes % 47.6 %; Mean Corpuscular HGB Conc 29.5 g/dL (30.0-36.0); Mean Corpuscular Hemoglobin 25.1 pg (28.0-34.0); Mean Corpuscular Volume 85.1 fL (81-99); Mean Platelet Volume 9.2 fL (7.4-10.4); Monocytes % 7.4 %; Neutrophils # 4.61 10^3/uL (1.8-7.7); Neutrophils % 35.5 %; Nucleated Red Blood Cells % 0 %; Platelet Count 491 10^3/cmm (130-400); Red Cell Distribution Width 14.6 % (12.1-15.1)
[2021-03-21 07:11] LABS: Alanine Aminotransferase 49 U/L (0-33); Albumin Level 3.1 g/dL (3.5-5.2); Alkaline Phosphatase 94 IU/L (35-105); Anion Gap 12.1 (5-19); Aspartate Amino Transferase 36 U/L (0-32); Blood Urea Nitrogen 20 mg/dL (6-20); Calcium 8.6 mg/dL (8.5-10.5); Carbon Dioxide 30 mmol/L (22-29); Chloride 103 mmol/L (98-107); Globulin 2.8 g/dL (1.3-4.6); Glomerular Filtration Rate 97.6 mL/min (90-130); Glucose 117 mg/dL (65-115); Magnesium 2.1 mg/dL (1.7-2.3); Osmolality Calculated 296 mOsm/kg (285-295); Phosphorus 5.1 mg/dL (2.5-4.5); Potassium 4.1 mmol/L (3.5-5.1); Sodium 141 mmol/L (136-145); Total Bilirubin 0.3 mg/dL (0.15-1.2); Total Protein 5.9 g/dL (6.6-8.7)
[2021-03-21] MEDS: ipratropium-albuterol 3 mL Neb INHALATION (07:42)
[2021-03-21 08:03] LABS: Glucose Point of Care 106 mg/dL (70-110)
[2021-03-21] MEDS: enoxaparin 40 mg/0.4 mL Syringe SUBCUT (08:05)
[2021-03-21] MEDS: pantoprazole DR 40 mg Tablet PO (08:05)
[2021-03-21] MEDS: ascorbic acid 500 mg Tablet PO (08:05)
--- NOTE | 2021-03-21 11:27 | P.DS_ITS ---
Discharge Providers Date of Admission: 03/14/21 00:20 Date of Discharge: March 21, 2021 Attending Provider at Admission: Claudia Arroyo MD Attending Provider at Discharge: Jesus García MD Primary Care Provider: Lillian Pena MD Diagnoses at Discharge Discharge Diagnosis (1) Hyperglycemia, drug-induced: Status: Acute (2) Non-insulin dependent diabetes mellitus: Status: Acute (3) Acute respiratory failure with hypoxia: Status: Acute (4) Respiratory failure with hypoxia: Status: Acute (5) Pneumonia due to COVID-19 virus: Status: Acute (6) Hypoxia: Status: Acute Reason for Visit Reason for Visit: COVID COMPLICATIONS Hospital Course Hospital Course HPI: Alejandra Jorgensen is a 31 year old female who presented to the emergency room with chief complaint of increasing difficulty breathing and shortness of breath. She was diagnosed with Covid this past . Testing was done in [facility] and we do not have those results available. Rapid Covid antigen this evening was negative. She had been at a camp at the time she was diagnosed and had to leave. Her family came to get her and have been monitoring how she has been doing, in particular her oxygen saturations. Her oxygen saturations dropped into the other upper 80s at home today prompting ER visit. Patient's mother does have Covid as well. Alejandra resides at a [facility]. She has had fevers up to 103. She has had chest congestion, cough primarily nonproductive, abdominal discomfort, diarrhea and vomiting. She has some chronic abdominal pain related to chronic cholelithiasis. She underwent an EGD earlier this year. She indicates that the abdominal discomfort is worse than usual. Denies any blood in her stools or black tarry stools. No hematemesis. Denies chest pain. Denies loss of taste or smell. Does admit to generalized aches and pains and be ing tired. She has not previously had Covid and did not get the Covid vaccine. In the emergency room she was requiring 2 L of oxygen by nasal cannula that later required increase to 4 L. Multiple laboratory studies were abnormal Course: COVID-19 test positive on 03/11, admitted on 03/13 for hypoxic respiratory failure. Initially required heated high flow for a few days which was gradually weaned down to nasal cannula. Her O2 requirement decreased gradually. She was given steroids, remdesivir. She qualified for 2 L after home O2 evaluation. She will be discharged home with instructions to quarantine for at least 2 weeks and avoid oral contraceptives during that time. She did not require any antibiotics. She did experience diarrhea and menstrual bleeding during her hospitalization. Medications held oral contraceptive pills Physical Exam Narrative: EXAM NARRATIVE: Very pleasant cooperative young female S1, S2 sinus rhythm Morbidly obese Abdomen soft legs no edema Saturating well on room air at the time of my evaluation Mild intellectual disability appropriate mood Discharge Data Data Completed and Pending: Completed Studies During Hospitalization Category Date Time Status XR chest 1V 04406 Routine Exams 03/15/21 08:51 Completed XR chest 1V pankaj ble [id number] Stat Exams 03/13/21 22:20 Completed XR chest 1V pankaj ble [id number] Stat Exams 03/17/21 15:05 Completed XR chest 1V pankaj ble [id number] Stat Exams 03/19/21 07:56 Completed Pending at discharge Category Date Time Status Complete Blood Co unt w/Auto AM LABS Lab 03/22/21 04:00 Ordered Comprehensive Met abolic Panel AM LA BS Lab 03/22/21 04:00 Ordered Labs from last 24 hours 03/21/21 03/21/21 03/21/21 07:54 04:40 04:40 WBC 13.0 H RBC 4.90 Hgb 12.3 Hct 41.7 MCV 85.1 MCH 25.1 L MCHC 29.5 L RDW 14.6 Plt Count 491 H MPV 9.2 Neut % (Auto) 35.5 Lymph % (Auto) 47.6 Norman % (Auto) 7.4 Eos % (Auto) 4.9 Baso % (Auto) 0.7 Neut # (Auto) 4.61 Lymph # (Auto) 6.2 H Norman # (Auto) 1.0 H Eos # (Auto) 0.6 Baso # (Auto) 0.1 Nucleated RBC % (a uto) 0 Nucleated RBCs # 0.0 Sodium 141 Potassium 4.1 Chloride 103 Carbon Dioxide 30 H Anion Gap 12.1 BUN 20 Creatinine 0.7 GFR Calculation 97.6 Glucose 117 H POC Glucose 106 Calculated Osmolal ity 296 H Calcium 8.6 Phosphorus 5.1 H Magnesium 2.1 Total Bilirubin 0.3 AST 36 H ALT 49 H Alkaline Phosphata se 94 Total Protein 5.9 L Albumin 3.1 L Globulin 2.8 03/20/21 03/20/21 03/20/21 19:42 16:16 11:06 WBC RBC Hgb Hct MCV MCH MCHC RDW Plt Count MPV Neut % (Auto) Lymph % (Auto) Norman % (Auto) Eos % (Auto) Baso % (Auto) Neut # (Auto) Lymph # (Auto) Norman # (Auto) Eos # (Auto) Baso # (Auto) Nucleated RBC % (a uto) Nucleated RBCs # Sodium Potassium Chloride Carbon Dioxide Anion Gap BUN Creatinine GFR Calculation Glucose POC Glucose 128 H 204 H 139 H Calculated Osmolal ity Calcium Phosphorus Magnesium Total Bilirubin AST ALT Alkaline Phosphata se Total Protein Albumin Globulin Vitals: Last Vital Signs Temp 97.9 F 03/21/21 08:00 Pulse 76 03/21/21 08:00 Resp 18 03/21/21 08:00 BP 118/55 03/21/21 08:00 Pulse Ox 92 03/21/21 07:40 Discharge Plan Discharge Patient Disposition: Home Condition: Stable Prescriptions: Continued loratadine [Allergy Relief (loratadine)] 10 mg tablet 10 mg PO DAILY PRN (Reason: Allergy Symptoms) RF: 0 venlafaxine 75 mg capsule,extended release 24hr 225 mg PO QAM 30 Days Qty: 90 RF: 3 lorazepam 0.5 mg tablet 0.25 mg PO .qhs 30 Days Qty: 15 RF: 3 omeprazole 20 mg capsule,delayed release(DR/EC) 20 mg PO BID 30 Days Qty: 60 RF: 2 Singulair 10 mg Tablet 10 mg PO QPM RF: 0 prazosin 1 mg capsule 1 mg PO BEDTIME RF: 0 trazodone 100 mg tablet 100 mg PO BEDTIME RF: 0 metformin 500 mg Tablet 500 mg PO DAILY RF: 0 loperamide 2 mg Capsule 2 mg PO Q2H PRN (Reason: Diarrhea) RF: 0 acetaminophen 650 mg Tablet 650 mg PO Q6H PRN (Reason: pain) RF: 0 diphenhydramine HCl 25 mg Tablet 25 mg PO Q6H PRN (Reason: Allergic Symptoms) RF: 0 ibuprofen 200 mg Tablet 200 mg PO BID PRN (Reason: pain) RF: 0 Daily Multivitamin Tablet 1 tab PO DAILY RF: 0 clonidine 0.2 mg/24 hr Patch Weekly 0.2 mg topical DAILY RF: 0 Q-Tussin DM 10-100 mg/5 mL Syrup 10 ml PO Q4H PRN (Reason: cough) RF: 0 Sentry Tablet 1 tab PO DAILY RF: 0 Chloraseptic Throat [place] 1.4 % Aerosol,[place] 2 spray MUCOUS MEMBRANE Q2H PRN (Reason: Sore Throat) RF: 0 Held levonorgestrel-ethinyl estrad 0.15 mg-30 mcg (91) tablets,dose pack,3 month 1 tab PO DAILY RF: 0 Hold Instructions: Resume on 04/12/21. Discharge Orders: Discharge Order (Routine); Ordered 03/21/21 Ordered By: Jesus García Other Ambulatory Orders: DME: Oxygen (Order) Location: None Selected Ordered By: Jesus García Referrals: Lillian Pena MD [Primary Care Provider] - 1 week (Dr. Pena's office will be calling to schedule a hospital followup. If you don't hear from her within a reasonable amount of time, please give her a call. Thank you) Discharge Diet: Advance as tolerated and Diabetic Discharge Activity: Resume usual activity Patient Instructions: Methylprednisolone (By mouth), Opioid Safety Activity Restrictions/Additional Instructions: Please quarantine for at least 2 weeks and do not attend your school for 14 days. Use mask and encourage others to use mask as well. You can get vaccination 3months after COVID-19 infection Use oxygen tank to keep her O2 saturation above 93% avoid smoking and discourage others to smoke around the house as well Avoid oral contraceptive pills for at least next 2 weeks and then resume afterwards Discharge Attestations Time Spent in Discharge Care*: less than 30 min Quality Metrics Clinical Quality Measures During this hospital stay, did patient experience: None Coding Level of Care Code Acute g FW DC note Diagnoses Hyperglycemia, drug-induced R73.9; T50.905A Non-insulin dependent diabetes mellitus Acute respiratory failure with hypoxia J96.01 Respiratory failure with hypoxia J96.91 Pneumonia due to COVID-19 virus U07.1; J12.82 Hypoxia R09.02
[2021-03-21 11:50] LABS: Glucose Point of Care 167 mg/dL (70-110)
--- NOTE | 2021-03-21 12:26 | PC.SOCIAL ---
IMM Updated Updated pt's mom on Pg 2 IMM. No questions voiced. Provided pt/mom a copy. Initialed, dated, & timed copy in chart.
--- NOTE | 2021-03-21 15:06 | PC.NURSE ---
discharge instructions given and explained.pt's mother verb understanding of instructions.discharged via w/c to exit.
== END 2021-03-21 15:08 | disposition home or self-care (01) | DRG 177 ==
LOC: ER 23:34 → CSU 03-14 03:54
PROVIDERS: Internal Medicine; Admitting Provider Hospitalist; Emergency Provider Nurse Practitioner Family; PCP Family Medicine; Visit Provider Internal Medicine
DX: U07.1 COVID-19 (principal); J12.82 Pneumonia due to coronavirus disease 2019; J96.01 Acute respiratory failure with hypoxia; K80.20 Calculus of gallbladder without cholecystitis without obstruction; F41.9 Anxiety disorder, unspecified; K76.0 Fatty (change of) liver, not elsewhere classified; K21.9 Gastro-esophageal reflux disease without esophagitis; F70 Mild intellectual disabilities; F39 Unspecified mood [affective] disorder; H66.93 Otitis media, unspecified, bilateral; E11.65 Type 2 diabetes mellitus with hyperglycemia; T38.0X5A Adverse effect of glucocorticoids and synthetic analogues, initial encounter; I10 Essential (primary) hypertension; K59.00 Constipation, unspecified; F95.8 Other tic disorders; Z96.22 Myringotomy tube(s) status; E66.01 Morbid (severe) obesity due to excess calories; Z68.38 Body mass index [BMI] 38.0-38.9, adult; Z79.84 Long term (current) use of oral hypoglycemic drugs
CPT/HCPCS: 36415; 36416; 71045; 80053; 82550; 82728; 82962; 83036; 83605; 83615; 83735; 83880; 84100; 84145; 84484; 85007; 85025; 85378; 85384; 85610; 85651; 85730; 86140; 87426; 87635; 94640; 96365; 96372; 96375; 99285; J1100; J1650; J1815 ×2; J2060; J2405; J3262; J3535

== ENCOUNTER → 2021-04-13 10:12 | Outpatient (BNVA) | payer MEDICARE, MEDICAID, SELFPAY | PROVIDERS: PCP Family Medicine; Visit Provider Psychiatry & Neurology Psychiatry | DX: F39 Unspecified mood [affective] disorder (principal); F70 Mild intellectual disabilities | CPT/HCPCS: 99214 ==

== ENCOUNTER 2021-04-21 10:21 | Outpatient (CLI) | payer MEDICARE, MEDICAID, SELFPAY ==
--- NOTE | 2021-04-21 10:32 | XR_ITS ---
WS: [id number] Right foot, 3 views, 04/21/2021 Clinical Data: RIGHT FOOT PAIN Comparison: Right foot, 08/02/2004. Findings: No fractures or dislocations are seen. No bone destruction or erosion is noted. The joint spaces and soft tissues are normal. XR/XR foot RT min 3V* [id number] Impression: Negative right foot.
== END 2021-04-21 10:22 | disposition home or self-care (01) ==
PROVIDERS: PCP Family Medicine; Visit Provider Family Medicine
DX: M79.671 Pain in right foot (principal)
CPT/HCPCS: 73630

== ENCOUNTER → 2021-04-29 08:50 | Outpatient (BNVA) | payer MEDICARE, MEDICAID, SELFPAY | PROVIDERS: PCP Family Medicine; Visit Provider Social Worker Clinical | DX: F70 Mild intellectual disabilities (principal); F41.9 Anxiety disorder, unspecified; F39 Unspecified mood [affective] disorder | CPT/HCPCS: 90834 ==

== ENCOUNTER 2021-05-13 06:44 | Day surgery (SDC) | payer MEDICARE, MEDICAID, SELFPAY ==
[2021-05-12 16:36] VITALS: BMI 43.0
[2021-05-13] VITALS (12 sets, daily range): BP systolic 132–174; BP diastolic 76–107; PULSE 69–99; RESP 14–25; TEMP 36.2–37.3; O2SAT 91–100
--- NOTE | 2021-05-13 07:26 | ANES.PREANE2 ---
Pre-Anesthetic Assessment Pre-Anesthetic Assessment: Height/Weight: Height 1.57 m Weight 106.594 kg Preop Diagnosis: Abdominal Pain Proposed Procedure: Operation Date: 05/13/21 08:00 Proposed Procedures p Laparoscopic poss Open Cholecystectomy 36735(Not Applicable) - Hai Garibay MD Operation Date: 05/24/21 11:25 Proposed Procedures p Laparoscopic Cholecystectomy 99401 K80.20(Not Applicable) - Franck Tejeda MD Was Beta Juan C taken within 24 hours: N/A Was Clonidine taken within 24 hours: Yes Social: Social History: No alcohol and No tobacco Exam: Pre-Anes Outpt Exam: alert, oriented x 3, clear to auscultation bilaterally and regular rate & rhythm Airway: Submandibular: WNL Cervical ROM: WNL MP: 3 Dentition: Chipped Pulmonary: Pulmonary: MELÉNDEZ and SOB Comments: Recent Covid pneumonia CV/HEM: CV/HEM: HTN : : None reported Hepatic: Comments: Fatty liver GI: GI: GERD Metabolic: Metabolic: DM and Morbid obesity Musc/skel: Musc/skel: OA/DJD Anesthetic Plan: ASA status: 3 Anesthesia: General PFSH Anesthesia PFSH: Medical History (Updated 05/06/21 @ 12:44 by Wen Baum) Anxiety Cholelithiasis Chronic otitis media of both ears Diabetes Fatty liver GERD (gastroesophageal reflux disease) Mild intellectual disability Mood disorder Non-insulin dependent diabetes mellitus Pneumonia due to COVID-19 virus Psychiatric care Tympanic membrane central perforation left Surgical History (Updated 03/22/21 @ 00:01 by ) History of esophagogastroduodenoscopy (EGD) (~10/2020) History of foot surgery History of placement of ear tubes History of tonsillectomy Family History (Updated 03/14/21 @ 09:19 by Claudia Arroyo MD) Other COVID-19 Social History (Updated 03/14/21 @ 07:16 by Claudia Arroyo MD) Smoking and tobacco status: never smoked Alcohol intake: never Housing: Other Details: long-term Current gender identity: Female Data Anesthesia Cardiac Studies: No Data to Display
[2021-05-13 07:30] LABS: OR HCG Qualitative Urine Negative (Negative)
[2021-05-13 07:32] LABS: Glucose Point of Care 157 mg/dL (70-110)
[2021-05-13] MEDS: sodium chloride 0.9% 1,000 ML 30 ML IV (07:35)
--- NOTE | 2021-05-13 08:30 | W.PM.OPSUD ---
Surgery/Procedure H&P Update DATE OF PROCEDURE: May 13, 2021 DATE H&P PERFORMED: 05/03/21 H&P UPDATE INFORMATION: No changes to prior documentation PREOP DIAGNOSIS: Symptomatic cholelithiasis. PLANNED PROCEDURE: Operation Date: 05/13/21 08:00 Proposed Procedures p Laparoscopic poss Open Cholecystectomy 53328(Not Applicable) - Hai Garibay MD Operation Date: 05/24/21 11:25 Proposed Procedures p Laparoscopic Cholecystectomy 11689 K80.20(Not Applicable) - Franck Tejeda MD
[2021-05-13 08:52] LABS: Alanine Aminotransferase 28 U/L (0-33); Albumin Level 3.9 g/dL (3.5-5.2); Alkaline Phosphatase 130 IU/L (35-105); Aspartate Amino Transferase 17 U/L (0-32); Globulin 3.4 g/dL (1.3-4.6); Total Bilirubin 0.4 mg/dL (0.15-1.2); Total Protein 7.3 g/dL (6.6-8.7)
--- NOTE | 2021-05-13 09:34 | P.OP_ITS ---
Operative Report Date of procedure: May 13, 2021 Pre-op Diagnosis: Symptomatic cholelithiasis. Post-op diagnosis: same Procedure Done: Laparoscopic cholecystectomy. Specimens removed/disposition: Gallbladder. Surgeon: Hai Garibay Anesthesia: General Estimated blood loss (mL): 5 Complications: None. Condition: stable Disposition: PACU Procedure: The patient was brought to the Operating Room and was placed in a supine position on the Operating Room table. General endotracheal anesthesia was induced. The abdomen was prepped and draped in a sterile fashion. A small vertical incision was carried out in the inferior aspect of the umbilicus. Blunt dissection was carried out down to the fascia, which was grasped with a Aleksandra clamp. A stay suture of 0 Vicryl was placed on either side of the midline and the midline fascia was incised. The underlying peritoneum was opened bluntly and the Cassandra port was placed directly into the peritoneal cavity and was held in place with the inflatable balloon. The peritoneal cavity was insufflated with carbon dioxide. The laparoscope was used to inspect the abdominal cavity. No gross abnormalities were noted. The gallbladder did appear to be somewhat contracted. A 5 millimeter port was placed in the epigastrium under direct vision. Two 5- millimeter ports were placed on the right side of the abdomen under direct visio n. The gallbladder was grasped and was elevated. Blunt dissection and hydrodissection were carried out in the infundibular region of the gallbladder and the cystic duct and cystic artery were identified. The gallbladder was partially removed from the liver bed using cautery and the spatula to confirm the anatomy before the structures were clipped and divided. The gallbladder was then removed from the liver bed using cautery and the spatula. After the gallbladder had been removed from the liver bed, the laparoscope was moved to the epigastric port and the gallbladder was removed from the peritoneal cavity through the umbilical port site. The stay sutures of Vicryl were tied to each other at the umbilicus[], closing the defect so that it was airtight. The perihepatic spaces were irrigated with saline and the liver bed was reinspected. No ongoing problems were seen. The remaining ports were removed from the abdominal wall and the pneumoperitoneum was evacuated. All skin incisions were closed using inverted interrupted sutures of 4-0 Vicryl. Benzoin and Steri-Strips were placed over the incisions and Band-Aids followed. The patient was taken to the Recovery Area in stable condition postoperatively.
[2021-05-13] MEDS: fentaNYL 50 mcg/mL INJ 2mL IVP ×2 (10:05→10:10)
[2021-05-13] MEDS: HYDROcodone-acetaminophen 5-325 mg Tablet 1 TAB PO (11:18)
[2021-05-13] MEDS: ketorolac 30 mg/mL INJ 15 MG IVP (11:50)
--- NOTE | 2021-05-13 12:46 | SUR.PHASEII ---
1200 patient states she feels better some, on room air with sats at 96%, patient says she still hurts but wants to go home.
--- NOTE | 2021-05-13 15:25 | ANE.PACU2 ---
Inpatient post-anesthesia follow up: Airway intact: Yes Vital signs: Temperature 99.1 F Pulse Rate 82 Respiratory Rate 20 Blood Pressure 155/99 Pulse Oximetry 95 Oxygen Delivery Me thod Nasal Cannula Oxygen Flow Rate 1 Fraction of Inspir ed Oxygen Hydration adequate: Yes Nausea and vomiting: No Pain level: 2 Mental status: Baseline
== END 2021-05-13 12:15 | disposition home or self-care (01) ==
PROVIDERS: Anesthesiology; PCP Family Medicine; Visit Provider Surgery
PROC: 0FT44ZZ Resection of Gallbladder, Percutaneous Endoscopic Approach (ICD-10-PCS; CPT 47562; principal; 2021-05-13 08:00)
DX: K80.10 Calculus of gallbladder with chronic cholecystitis without obstruction (principal); I10 Essential (primary) hypertension; K21.9 Gastro-esophageal reflux disease without esophagitis; E11.9 Type 2 diabetes mellitus without complications; E66.01 Morbid (severe) obesity due to excess calories; Z68.41 Body mass index [BMI] 40.0-44.9, adult
CPT/HCPCS: 47562; 36415; 36416; 80076; 81025; 82962; 84703; 88304; 96365; 96374; J0330; J0690; J1100; J1885; J2001; J2250; J2370; J2405; J2704; J2710; J3010; J3490; J7030

== ENCOUNTER 2021-05-29 10:30 | Emergency (ER) | payer MEDICARE, MEDICAID, SELFPAY ==
[2021-05-29 11:15] VITALS: BP 131/85; PULSE 111; RESP 18; TEMP 36.8; O2SAT 97; BMI 38.7
--- NOTE | 2021-05-29 15:30 | W.ED.ABDPA2 ---
Documented by User: BHAVESH Jack 06/02/21 07:02 HPI - Abdominal Pain General: Chief Complaint: Abdominal Pain Stated Complaint: abd pain (lap choley 3 wks ago) Time Seen by Provider: 05/29/21 10:07 Source: patient and family (caregiver/mother) Mode of arrival: ambulatory Limitations: other (pt is intellectually disabled) History of Present Illness: HPI narrative: Patient is a 31-year-old female presents to ED today with her caregiver for complaints of a stomach ache . Patient tells me she began noticing abdominal pain this morning when she woke up. States she was not experiencing pain yesterday evening. She states she has had watery non-bloody diarrhea throughout the day. Caregiver states that she soiled herself several times while in the waiting room. Caregiver also feels like patient's abdomen is bloated. Patient is approximately 3 weeks cholecystectomy. According to Dr. Garibay's note along with patient/caregiver history she has a longstanding history of abdominal pains worse with eating and chronic diarrhea. They thought symptoms could be related to biliary colic hence the decision to proceed with the cholecystectomy. Patient is not running fevers. She has not had any episodes of vomiting. MD elicited complaint: abdominal pain Associated Symptoms: Reports diarrhea; Denies chills, dysuria, fever(s), hematochezia, hematuria, hematemesis, melena, nausea and vomiting Review of Systems Const: Denies: fever(s), chills or body aches ENMT: Denies: throat pain or odynophagia Card: Denies: chest pain Resp: Denies: dyspnea GI: Reports: abdominal pain and diarrhea; Denies: nausea, vomiting, hematemesis, pain on defecation, hematochezia or melena : Denies: flank pain, dysuria or hematuria Musc: Denies: neck pain or back pain Skin/Breast: Denies: rash Neuro: Denies: headache(s) or dizziness PFS ED PFSH: Medical History (Updated 05/29/21 @ 19:00 by BOONE Vasquez) Anxiety Cholelithiasis Chronic otitis media of both ears Diabetes Fatty liver GERD (gastroesophageal reflux disease) Mild intellectual disability Mood disorder Non-insulin dependent diabetes mellitus Pneumonia due to COVID-19 virus Psychiatric care Tympanic membrane central perforation left Surgical History (Updated 03/22/21 @ 00:01 by ) History of esophagogastroduodenoscopy (EGD) (~10/2020) History of foot surgery History of placement of ear tubes History of tonsillectomy Family History (Updated 03/14/21 @ 09:19 by Claudia Arroyo MD) Other COVID-19 Social History (Updated 03/14/21 @ 07:16 by Claudia Arroyo MD) Smoking and tobacco status: never smoked Alcohol intake: never Housing: Other Details: nursing home Current gender identity: Female Physical Exam Const: COMMON NORMALS: no acute distress, patient oriented x3, no limitations and alert GENERAL APPEARANCE: cooperative NUTRITIONAL APPEARANCE: obese ORIENTATION/CONSCIOUSNESS: Yes awake, Yes oriented to person, Yes oriented to place and Yes oriented to time HENMT: COMMON NORMALS: normocephalic and atraumatic HEAD & SCALP: normocephalic and atraumatic Resp: COMMON NORMALS: normal respiratory effort and clear to auscultation bilaterally AUSCULTATION: clear to auscultation bilaterally Cardio: COMMON NORMALS: regular rate and regular rhythm RATE: regular rate RHYTHM: regular rhythm GI: COMMON NORMALS: Normal to inspection, nondistended, normoactive bowel sounds present and Soft to palpation INSPECTION: Yes normal to inspection AUSCULTATION: Yes normoactive bowel sounds PALPATION: Yes Soft to palpation and Yes Tenderness to palpation present (GI) (throughout abdomen; grimacing with palpation) OTHER: exam somewhat limited secondary to body habitus : COMMON NORMALS: Yes no CVA tenderness BLADDER/KIDNEY EXAM: Yes no CVA tenderness Back/Pelvis: COMMON NORMALS: no CVA tenderness Extremity: COMMON NORMALS: normal to inspection Neuro: JOHAN COMA SCALE: document GCS findings Johan coma scale eye opening: Spontaneous [place] coma scale verbal response: Orientated [place] coma scale motor response: Obey commands [place] coma scale total score: 15 COMMON NORMALS: patient oriented x3 SENSORIUM/ORIENTATION: Yes alert, Yes oriented to person, Yes oriented to place and Yes oriented to time Skin: COMMON NORMALS: no rashes or lesions noted GENERAL SKIN EXAM: no rashes or lesions noted TRAUMA: no lacerations or abrasions Course Vital Signs: Vital signs: Vital Signs Temperature 98.8 F 05/29/21 17:10 Pulse Rate 94 05/29/21 17:10 Respiratory Rate 16 05/29/21 17:10 Blood Pressure 155/88 05/29/21 17:10 Pulse Oximetry 96 05/29/21 17:10 MDM - Abdominal Pain MDM Narrative: Medical decision making narrative: Care transferred to BOONE Vasquez pending labs/urine results. Vitals stable. She appears in NAD. Mother does not want CT imaging at this time. Lab Data: Labs: Lab Results 05/29/21 05/29/21 05/29/21 15:08 15:08 15:08 WBC Cancelled Corrected WBC Cancelled RBC Cancelled Hgb Cancelled Hct Cancelled MCV Cancelled MCH Cancelled MCHC Cancelled RDW Cancelled Plt Count Cancelled MPV Cancelled Gran % Cancelled Neut % (Auto) Cancelled Lymph % (Auto) Cancelled Antelope % (Auto) Cancelled Eos % (Auto) Cancelled Baso % (Auto) Cancelled Neut # (Auto) Cancelled Lymph # (Auto) Cancelled Antelope # (Auto) Cancelled Eos # (Auto) Cancelled Baso # (Auto) Cancelled Absolute Gran (aut o) Cancelled Nucleated RBC % (a uto) Cancelled Nucleated RBCs # Cancelled Sodium Cancelled Potassium Cancelled Chloride Cancelled Carbon Dioxide Cancelled Anion Gap Cancelled BUN Cancelled Creatinine Cancelled GFR Calculation Cancelled Glucose Cancelled Calculated Osmolal ity Cancelled Lactic Acid Calcium Cancelled Total Bilirubin Cancelled AST Cancelled ALT Cancelled Alkaline Phosphata se Cancelled Total Protein Cancelled Albumin Cancelled Globulin Cancelled Lipase Cancelled HCG, Qual Cancelled Urine Color Urine Appearance Urine pH Ur Specific Gravit y Urine Protein Urine Glucose (UA) Urine Ketones Urine Blood Urine Nitrate Urine Bilirubin Urine Urobilinogen Ur Leukocyte Michelle ase Urine RBC Urine WBC Ur Squamous Epith Cells Amorphous Sediment Urine Bacteria 05/29/21 05/29/21 05/29/21 15:15 16:37 18:10 WBC 12.8 10^3/uL H 10 ^3/uL (4.0-10.0) Corrected WBC RBC 4.89 10^6/uL 10^6 /uL (4.1-5.3) Hgb 12.7 g/dL g/dL (11.5-15.3) Hct 41.2 % % (37.0-47.0) MCV 84.3 fl fl (81-99) MCH 26.0 pg L pg (28.0-34.0) MCHC 30.8 g/dL g/dL (30.0-36.0) RDW 13.7 % % (12.1-15.1) Plt Count 566 10^3/cmm H 10 ^3/cmm (130-400) MPV 9.2 fL fL (7.4-10.4) Gran % Neut % (Auto) 53.3 % % Lymph % (Auto) 36.8 % % Antelope % (Auto) 5.6 % % Eos % (Auto) 3.7 % % Baso % (Auto) 0.4 % % Neut # (Auto) 6.86 10^3/uL 10^3 /uL (1.8-7.7) Lymph # (Auto) 4.7 10^3/uL 10^3/ uL (0.8-4.8) Antelope # (Auto) 0.7 10^3/uL 10^3/ uL (0.2-0.9) Eos # (Auto) 0.5 10^3/uL 10^3/ uL (0.0-0.8) Baso # (Auto) 0.1 10^3/uL 10^3/ uL (0.0-0.1) Absolute Gran (aut o) Nucleated RBC % (a uto) 0 % % Nucleated RBCs # 0.0 /100WBC /100W BC Sodium Potassium Chloride Carbon Dioxide Anion Gap BUN Creatinine GFR Calculation Glucose Calculated Osmolal ity Lactic Acid Cancelled Calcium Total Bilirubin AST ALT Alkaline Phosphata se Total Protein Albumin Globulin Lipase HCG, Qual Urine Color Yellow (Yellow) Urine Appearance Cloudy (CLEAR) Urine pH 5 (5-7) Ur Specific Gravit y 1.030 (1.005-1.030) Urine Protein Neg (Negative) Urine Glucose (UA) Norm (Normal) Urine Ketones 1+ H (Negative) Urine Blood 3+ H (Negative) Urine Nitrate Negative (Negative) Urine Bilirubin 1+ H (Negative) Urine Urobilinogen 1 mg/dL H mg/dL (Negative) Ur Leukocyte Michelle ase 1+ H (Negative) Urine RBC 25-40 /hpf H /hpf (0-2) Urine WBC 25-40 /hpf H /hpf (0-5) Ur Squamous Epith Cells 0-4 /hpf H /hpf (0-5) Amorphous Sediment 4+ /hpf /hpf Urine Bacteria 2+ /hpf H /hpf (NONE) 05/29/21 05/29/21 05/29/21 18:10 18:10 18:10 WBC Corrected WBC RBC Hgb Hct MCV MCH MCHC RDW Plt Count MPV Gran % Neut % (Auto) Lymph % (Auto) Antelope % (Auto) Eos % (Auto) Baso % (Auto) Neut # (Auto) Lymph # (Auto) Antelope # (Auto) Eos # (Auto) Baso # (Auto) Absolute Gran (aut o) Nucleated RBC % (a uto) Nucleated RBCs # Sodium 134 mmol/L L mmol /L (136-145) Potassium 4.0 mmol/L mmol/L (3.5-5.1) Chloride 99 mmol/L mmol/L (98-107) Carbon Dioxide 22 mmol/L mmol/L (22-29) Anion Gap 17.0 (5-19) BUN 11 mg/dL mg/dL (6-20) Creatinine 0.5 mg/dL mg/dL (0.5-0.9) GFR Calculation 143.9 mL/min H mL /min (90-130) Glucose 110 mg/dL mg/dL (65-115) Calculated Osmolal ity 278 mOsm/kg L mOs m/kg (285-295) Lactic Acid 1.0 mmol/L mmol/L (0.5-2.2) Calcium 9.5 mg/dL mg/dL (8.5-10.5) Total Bilirubin 0.5 mg/dL mg/dL (0.15-1.2) AST 27 U/L U/L (0-32) ALT 29 U/L U/L (0-33) Alkaline Phosphata se 149 IU/L H IU/L (35-105) Total Protein 7.5 g/dL g/dL (6.6-8.7) Albumin 3.9 g/dL g/dL (3.5-5.2) Globulin 3.6 g/dL g/dL (1.3-4.6) Lipase 25 U/L U/L (13-60) HCG, Qual Negative (Negative) Urine Color Urine Appearance Urine pH Ur Specific Gravit y Urine Protein Urine Glucose (UA) Urine Ketones Urine Blood Urine Nitrate Urine Bilirubin Urine Urobilinogen Ur Leukocyte Michelle ase Urine RBC Urine WBC Ur Squamous Epith Cells Amorphous Sediment Urine Bacteria Discharge Plan Discharge Patient Disposition: Home Clinical Impression: Chronic diarrhea UTI (urinary tract infection) Qualifiers: Urinary tract infection type: acute cystitis Hematuria presence: with hematuria Qualified Code(s): N30.01 - Acute cystitis with hematuria Condition: Stable Prescriptions: New Imodium A-D 2 mg capsule 2 mg PO Q6H PRN (Reason: loose stool) Qty: 14 RF: 0 A and D (samuel, pet) Ointment 1 applic topical TID PRN (Reason: skin irritation) Qty: 113 RF: 0 cephalexin 500 mg capsule 500 mg PO Q8H 7 Days Qty: 21 RF: 0 No Action levonorgestrel-ethinyl estrad 0.15 mg-30 mcg (91) tablets,dose pack,3 month 1 tab PO DAILY RF: 0 Hold Instructions: Resume on 04/12/21. lorazepam 0.5 mg tablet 0.5 mg PO BEDTIME 30 Days Qty: 30 RF: 3 prazosin 2 mg capsule 2 mg PO BEDTIME 30 Days Qty: 30 RF: 3 loratadine [Allergy Relief (loratadine)] 10 mg tablet 10 mg PO DAILY PRN (Reason: Allergy Symptoms) RF: 0 venlafaxine 75 mg capsule,extended release 24hr 225 mg PO QAM 30 Days Qty: 90 RF: 3 omeprazole 20 mg capsule,delayed release(DR/EC) 20 mg PO BID 30 Days Qty: 60 RF: 2 hydrocodone-acetaminophen 5-325 mg tablet 1 - 2 tab PO Q5H PRN (Reason: pain) Qty: 30 RF: 0 acetaminophen 325 mg Tablet 650 mg PO Q6H PRN (Reason: Pain) RF: 0 triamcinolone acetonide 0.1 % Cream 1 applic TOPICAL TID PRN (Reason: Rash) RF: 0 loperamide 1 mg/5 mL Liquid 1 mg PO Q2H PRN (Reason: Diarrhea) RF: 0 Ruba-[place] 200-200-20 mg/5 mL Suspension 15 ml PO TID PRN (Reason: Stomach Upset) RF: 0 metformin 500 mg Tablet Extended Release 24 Hr 500 mg PO DAILY RF: 0 [place] + Night-Time Cold Capsule 1 cap PO QID PRN (Reason: Cough) RF: 0 montelukast [Singulair] 10 mg Tablet 10 mg PO QPM RF: 0 trazodone 100 mg tablet 100 mg PO BEDTIME RF: 0 diphenhydramine HCl 25 mg Tablet 25 mg PO Q6H PRN (Reason: Allergic Symptoms) RF: 0 ibuprofen 200 mg Tablet 200 mg PO BID PRN (Reason: pain) RF: 0 multivitamin Tablet 1 tab PO DAILY RF: 0 clonidine 0.2 mg/24 hr Patch Weekly 0.2 mg topical Q7D RF: 0 dextromethorphan-guaifenesin 10-100 mg/5 mL Syrup 5 ml PO Q4H PRN (Reason: cough) RF: 0 Chloraseptic Throat [place] 1.4 % Aerosol,[place] 2 spray MUCOUS MEMBRANE Q2H PRN (Reason: Sore Throat) RF: 0 Discharge Orders: Discharge ED (Routine); Ordered 05/29/21 Ordered By: Bruno Stuart Referrals: Lillian Pena MD [Primary Care Provider] - Discharge Diet: Advance as tolerated Discharge Activity: Resume usual activity Patient Instructions: Urinary Tract Infection in Women (ED), Chronic Diarrhea (ED) Coding Level of Care Code ED Quilt Sewer for Chg Fwd Exam Comprehensive Documented by User: BOONE Vasquez 05/29/21 22:48 HPI - Abdominal Pain General: Chief Complaint: Abdominal Pain Stated Complaint: abd pain (lap choley 3 wks ago) Time Seen by Provider: 05/29/21 10:07 [facility] ED PFSH: Medical History (Updated 05/29/21 @ 19:00 by BOONE Vasquez) Anxiety Cholelithiasis Chronic otitis media of both ears Diabetes Fatty liver GERD (gastroesophageal reflux disease) Mild intellectual disability Mood disorder Non-insulin dependent diabetes mellitus Pneumonia due to COVID-19 virus Psychiatric care Tympanic membrane central perforation left Surgical History (Updated 03/22/21 @ 00:01 by ) History of esophagogastroduodenoscopy (EGD) (~10/2020) History of foot surgery History of placement of ear tubes History of tonsillectomy Family History (Updated 03/14/21 @ 09:19 by Claudia Arroyo MD) Other COVID-19 Social History (Updated 03/14/21 @ 07:16 by Claudia Arroyo MD) Smoking and tobacco status: never smoked Alcohol intake: never Housing: Other Details: nursing home Current gender identity: Female Course Vital Signs: Vital signs: Vital Signs Temperature 98.8 F 05/29/21 17:10 Pulse Rate 94 05/29/21 17:10 Respiratory Rate 16 05/29/21 17:10 Blood Pressure 155/88 05/29/21 17:10 Pulse Oximetry 96 05/29/21 17:10 MDM - Abdominal Pain MDM Narrative: Medical decision making narrative: Received report from BHAVESH Jack. Patient's labs show definite UTI. Patient is follow-up with her schedule appointment this week and repeat urine sample. Lab Data: Labs: Lab Results 05/29/21 05/29/21 05/29/21 15:08 15:08 15:08 WBC Cancelled Corrected WBC Cancelled RBC Cancelled Hgb Cancelled Hct Cancelled MCV Cancelled MCH Cancelled MCHC Cancelled RDW Cancelled Plt Count Cancelled MPV Cancelled Gran % Cancelled Neut % (Auto) Cancelled Lymph % (Auto) Cancelled Antelope % (Auto) Cancelled Eos % (Auto) Cancelled Baso % (Auto) Cancelled Neut # (Auto) Cancelled Lymph # (Auto) Cancelled Antelope # (Auto) Cancelled Eos # (Auto) Cancelled Baso # (Auto) Cancelled Absolute Gran (aut o) Cancelled Nucleated RBC % (a uto) Cancelled Nucleated RBCs # Cancelled Sodium Cancelled Potassium Cancelled Chloride Cancelled Carbon Dioxide Cancelled Anion Gap Cancelled BUN Cancelled Creatinine Cancelled GFR Calculation Cancelled Glucose Cancelled Calculated Osmolal ity Cancelled Lactic Acid Calcium Cancelled Total Bilirubin Cancelled AST Cancelled ALT Cancelled Alkaline Phosphata se Cancelled Total Protein Cancelled Albumin Cancelled Globulin Cancelled Lipase Cancelled HCG, Qual Cancelled Urine Color Urine Appearance Urine pH Ur Specific Gravit y Urine Protein Urine Glucose (UA) Urine Ketones Urine Blood Urine Nitrate Urine Bilirubin Urine Urobilinogen Ur Leukocyte Michelle ase Urine RBC Urine WBC Ur Squamous Epith Cells Amorphous Sediment Urine Bacteria 05/29/21 05/29/2105/29/21 15:15 16:37 18:10 WBC 12.8 10^3/uL H 10 ^3/uL (4.0-10.0) Corrected WBC RBC 4.89 10^6/uL 10^6 /uL (4.1-5.3) Hgb 12.7 g/dL g/dL (11.5-15.3) Hct 41.2 % % (37.0-47.0) MCV 84.3 fl fl (81-99) MCH 26.0 pg L pg (28.0-34.0) MCHC 30.8 g/dL g/dL (30.0-36.0) RDW 13.7 % % (12.1-15.1) Plt Count 566 10^3/cmm H 10 ^3/cmm (130-400) MPV 9.2 fL fL (7.4-10.4) Gran % Neut % (Auto) 53.3 % % Lymph % (Auto) 36.8 % % Antelope % (Auto) 5.6 % % Eos % (Auto) 3.7 % % Baso % (Auto) 0.4 % % Neut # (Auto) 6.86 10^3/uL 10^3 /uL (1.8-7.7) Lymph # (Auto) 4.7 10^3/uL 10^3/ uL (0.8-4.8) Antelope # (Auto) 0.7 10^3/uL 10^3/ uL (0.2-0.9) Eos # (Auto) 0.5 10^3/uL 10^3/ uL (0.0-0.8) Baso # (Auto) 0.1 10^3/uL 10^3/ uL (0.0-0.1) Absolute Gran (aut o) Nucleated RBC % (a uto) 0 % % Nucleated RBCs # 0.0 /100WBC /100W BC Sodium Potassium Chloride Carbon Dioxide Anion Gap BUN Creatinine GFR Calculation Glucose Calculated Osmolal ity Lactic Acid Cancelled Calcium Total Bilirubin AST ALT Alkaline Phosphata se Total Protein Albumin Globulin Lipase HCG, Qual Urine Color Yellow (Yellow) Urine Appearance Cloudy (CLEAR) Urine pH 5 (5-7) Ur Specific Gravit y 1.030 (1.005-1.030) Urine Protein Neg (Negative) Urine Glucose (UA) Norm (Normal) Urine Ketones 1+ H (Negative) Urine Blood 3+ H (Negative) Urine Nitrate Negative (Negative) Urine Bilirubin 1+ H (Negative) Urine Urobilinogen 1 mg/dL H mg/dL (Negative) Ur Leukocyte Michelle ase 1+ H (Negative) Urine RBC 25-40 /hpf H /hpf (0-2) Urine WBC 25-40 /hpf H /hpf (0-5) Ur Squamous Epith Cells 0-4 /hpf H /hpf (0-5) Amorphous Sediment 4+ /hpf /hpf Urine Bacteria 2+ /hpf H /hpf (NONE) 05/29/21 05/29/21 05/29/21 18:10 18:10 18:10 WBC Corrected WBC RBC Hgb Hct MCV MCH MCHC RDW Plt Count MPV Gran % Neut % (Auto) Lymph % (Auto) Antelope % (Auto) Eos % (Auto) Baso % (Auto) Neut # (Auto) Lymph # (Auto) Antelope # (Auto) Eos # (Auto) Baso # (Auto) Absolute Gran (aut o) Nucleated RBC % (a uto) Nucleated RBCs # Sodium 134 mmol/L L mmol /L (136-145) Potassium 4.0 mmol/L mmol/L (3.5-5.1) Chloride 99 mmol/L mmol/L (98-107) Carbon Dioxide 22 mmol/L mmol/L (22-29) Anion Gap 17.0 (5-19) BUN 11 mg/dL mg/dL (6-20) Creatinine 0.5 mg/dL mg/dL (0.5-0.9) GFR Calculation 143.9 mL/min H mL /min (90-130) Glucose 110 mg/dL mg/dL (65-115) Calculated Osmolal ity 278 mOsm/kg L mOs m/kg (285-295) Lactic Acid 1.0 mmol/L mmol/L (0.5-2.2) Calcium 9.5 mg/dL mg/dL (8.5-10.5) Total Bilirubin 0.5 mg/dL mg/dL (0.15-1.2) AST 27 U/L U/L (0-32) ALT 29 U/L U/L (0-33) Alkaline Phosphata se 149 IU/L H IU/L (35-105) Total Protein 7.5 g/dL g/dL (6.6-8.7) Albumin 3.9 g/dL g/dL (3.5-5.2) Globulin 3.6 g/dL g/dL (1.3-4.6) Lipase 25 U/L U/L (13-60) HCG, Qual Negative (Negative) Urine Color Urine Appearance Urine pH Ur Specific Gravit y Urine Protein Urine Glucose (UA) Urine Ketones Urine Blood Urine Nitrate Urine Bilirubin Urine Urobilinogen Ur Leukocyte Michelle ase Urine RBC Urine WBC Ur Squamous Epith Cells Amorphous Sediment Urine Bacteria Discharge Plan Discharge Patient Disposition: Home Clinical Impression: Chronic diarrhea UTI (urinary tract infection) Qualifiers: Urinary tract infection type: acute cystitis Hematuria presence: with hematuria Qualified Code(s): N30.01 - Acute cystitis with hematuria Condition: Stable Prescriptions: New Imodium A-D 2 mg capsule 2 mg PO Q6H PRN (Reason: loose stool) Qty: 14 RF: 0 A and D (samuel, pet) Ointment 1 applic topical TID PRN (Reason: skin irritation) Qty: 113 RF: 0 cephalexin 500 mg capsule 500 mg PO Q8H 7 Days Qty: 21 RF: 0 No Action levonorgestrel-ethinyl estrad 0.15 mg-30 mcg (91) tablets,dose pack,3 month 1 tab PO DAILY RF: 0 Hold Instructions: Resume on 04/12/21. lorazepam 0.5 mg tablet 0.5 mg PO BEDTIME 30 Days Qty: 30 RF: 3 prazosin 2 mg capsule 2 mg PO BEDTIME 30 Days Qty: 30 RF: 3 loratadine [Allergy Relief (loratadine)] 10 mg tablet 10 mg PO DAILY PRN (Reason: Allergy Symptoms) RF: 0 venlafaxine 75 mg capsule,extended release 24hr 225 mg PO QAM 30 Days Qty: 90 RF: 3 omeprazole 20 mg capsule,delayed release(DR/EC) 20 mg PO BID 30 Days Qty: 60 RF: 2 hydrocodone-acetaminophen 5-325 mg tablet 1 - 2 tab PO Q5H PRN (Reason: pain) Qty: 30 RF: 0 acetaminophen 325 mg Tablet 650 mg PO Q6H PRN (Reason: Pain) RF: 0 triamcinolone acetonide 0.1 % Cream 1 applic TOPICAL TID PRN (Reason: Rash) RF: 0 loperamide 1 mg/5 mL Liquid 1 mg PO Q2H PRN (Reason: Diarrhea) RF: 0 Rub[place] 200-200-20 mg/5 mL Suspension 15 ml PO TID PRN (Reason: Stomach Upset) RF: 0 metformin 500 mg Tablet Extended Release 24 Hr 500 mg PO DAILY RF: 0 [place] + Night-Time Cold Capsule 1 cap PO QID PRN (Reason: Cough) RF: 0 montelukast [Singulair] 10 mg Tablet 10 mg PO QPM RF: 0 trazodone 100 mg tablet 100 mg PO BEDTIME RF: 0 diphenhydramine HCl 25 mg Tablet 25 mg PO Q6H PRN (Reason: Allergic Symptoms) RF: 0 ibuprofen 200 mg Tablet 200 mg PO BID PRN (Reason: pain) RF: 0 multivitamin Tablet 1 tab PO DAILY RF: 0 clonidine 0.2 mg/24 hr Patch Weekly 0.2 mg topical Q7D RF: 0 dextromethorphan-guaifenesin 10-100 mg/5 mL Syrup 5 ml PO Q4H PRN (Reason: cough) RF: 0 Chloraseptic Throat [place] 1.4 % Aerosol,[place] 2 spray MUCOUS MEMBRANE Q2H PRN (Reason: Sore Throat) RF: 0 Discharge Orders: Discharge ED (Routine); Ordered 05/29/21 Ordered By: Bruno Stuart Referrals: Lillian Pena MD [Primary Care Provider] - Discharge Diet: Advance as tolerated Discharge Activity: Resume usual activity Patient Instructions: Urinary Tract Infection in Women (ED), Chronic Diarrhea (ED) Coding Level of Care Code ED Quilt Sewer for Chg Fwd Exam Comprehensive
[2021-05-29 17:10] VITALS: BP 155/88; PULSE 94; RESP 16; TEMP 37.1; O2SAT 96
[2021-05-29 18:14] LABS: Urine Appearance Cloudy (CLEAR); Urine Color Yellow (Yellow); pH Urine 5 (5-7)
[2021-05-29 18:15] LABS: Add Urine Microscopic? YES; Bilirubin Urine 1+ (Negative); Blood Urine 3+ (Negative); Glucose Urine UA Norm (Normal); Ketones Urine 1+ (Negative); Leukocyte Esterase Urine 1+ (Negative); Nitrate Urine Negative (Negative); Protein Urine Neg (Negative); Urobilinogen Urine 1 mg/dL (Negative)
[2021-05-29 18:19] LABS: Add Urine Culture? Yes; Amorphous Sediment Urine 4+ /hpf; Bacteria Urine 2+ /hpf; RBC Urine 25-40 /hpf (0-2); Squamous Epithelial Cell Urine 0-4 /hpf (0-5); WBC Urine 25-40 /hpf (0-5)
[2021-05-29 18:51] LABS: Basophils # 0.1 10^3/uL (0.0-0.1); Basophils % 0.4 %; Eosinophils # 0.5 10^3/uL (0.0-0.8); Eosinophils % 3.7 %; Hematocrit 41.2 % (37.0-47.0); Hemoglobin 12.7 g/dL (11.5-15.3); Lymphocytes # 4.7 10^3/uL (0.8-4.8); Lymphocytes % 36.8 %; Mean Corpuscular HGB Conc 30.8 g/dL (30.0-36.0); Mean Corpuscular Volume 84.3 fl (81-99); Mean Platelet Volume 9.2 fL (7.4-10.4); Monocytes # 0.7 10^3/uL (0.2-0.9); Monocytes % 5.6 %; Neutrophils # 6.86 10^3/uL (1.8-7.7); Neutrophils % 53.3 %; Nucleated Red Blood Cells % 0 %; Platelet Count 566 10^3/cmm (130-400); Red Blood Count 4.89 10^6/uL (4.1-5.3); Red Cell Distribution Width 13.7 % (12.1-15.1); White Blood Count 12.8 10^3/uL (4.0-10.0)
[2021-05-29] MEDS: cephALEXin 500 mg Capsule PO (19:01)
[2021-05-29 19:05] LABS: Alanine Aminotransferase 29 U/L (0-33); Albumin Level 3.9 g/dL (3.5-5.2); Alkaline Phosphatase 149 IU/L (35-105); Aspartate Amino Transferase 27 U/L (0-32); Blood Urea Nitrogen 11 mg/dL (6-20); Calcium 9.5 mg/dL (8.5-10.5); Carbon Dioxide 22 mmol/L (22-29); Chloride 99 mmol/L (98-107); Globulin 3.6 g/dL (1.3-4.6); Glomerular Filtration Rate 143.9 mL/min (90-130); Glucose 110 mg/dL (65-115); Lipase 25 U/L (13-60); Osmolality Calculated 278 mOsm/kg (285-295); Sodium 134 mmol/L (136-145); Total Bilirubin 0.5 mg/dL (0.15-1.2); Total Protein 7.5 g/dL (6.6-8.7)
[2021-05-29 19:09] LABS: HCG, Serum Qual Negative (Negative)
== END 2021-05-29 19:35 | disposition home or self-care (01) ==
PROVIDERS: Physician Assistant; Emergency Provider Nurse Practitioner Family; PCP Family Medicine
DX: N30.01 Acute cystitis with hematuria (principal); K52.9 Noninfective gastroenteritis and colitis, unspecified; Z79.84 Long term (current) use of oral hypoglycemic drugs; E11.9 Type 2 diabetes mellitus without complications
CPT/HCPCS: 80053; 81001; 83605; 83690; 84703; 85025; 87086; 99283

== ENCOUNTER → 2021-06-01 10:23 | Outpatient (BNVA) | payer MEDICARE, MEDICAID, SELFPAY | PROVIDERS: PCP Family Medicine; Visit Provider Psychiatry & Neurology Psychiatry | DX: F41.1 Generalized anxiety disorder (principal); F39 Unspecified mood [affective] disorder; F70 Mild intellectual disabilities | CPT/HCPCS: 99214 ==

== ENCOUNTER → 2021-06-02 10:56 | Outpatient (BNVA) | payer MEDICARE, MEDICAID, SELFPAY | PROVIDERS: PCP Family Medicine; Visit Provider Social Worker Clinical | DX: F70 Mild intellectual disabilities (principal); F41.9 Anxiety disorder, unspecified; F39 Unspecified mood [affective] disorder | CPT/HCPCS: 90834 ==

== ENCOUNTER → 2021-06-16 08:56 | Outpatient (BNVA) | payer MEDICARE, MEDICAID, SELFPAY | PROVIDERS: PCP Family Medicine; Visit Provider Social Worker Clinical | DX: F70 Mild intellectual disabilities (principal); F41.9 Anxiety disorder, unspecified; F39 Unspecified mood [affective] disorder | CPT/HCPCS: 90834 ==

== ENCOUNTER → 2021-07-16 11:11 | Outpatient (BNVA) | payer MEDICARE, MEDICAID, SELFPAY | PROVIDERS: PCP Family Medicine; Visit Provider Psychiatry & Neurology Psychiatry | DX: F41.1 Generalized anxiety disorder (principal); F41.9 Anxiety disorder, unspecified; F39 Unspecified mood [affective] disorder; F70 Mild intellectual disabilities | CPT/HCPCS: 99214 ==

== ENCOUNTER → 2021-09-04 13:57 | Outpatient (BNVA) | payer MEDICARE, MEDICAID, SELFPAY | PROVIDERS: PCP Family Medicine; Visit Provider Nurse Practitioner | DX: R30.9 Painful micturition, unspecified (principal); R30.0 Dysuria | CPT/HCPCS: 81000; 87086 ==

== ENCOUNTER → 2021-09-24 08:55 | Outpatient (BNVA) | payer MEDICARE, MEDICAID, SELFPAY | PROVIDERS: PCP Family Medicine; Visit Provider Psychiatry & Neurology Psychiatry | DX: F39 Unspecified mood [affective] disorder (principal); F70 Mild intellectual disabilities | CPT/HCPCS: 99214 ==

== ENCOUNTER 2021-10-05 18:31 | Emergency (ER) | payer MEDICARE, MEDICAID, SELFPAY ==
--- NOTE | 2021-10-05 18:49 | XRR_ITS ---
PROCEDURE INFORMATION: Exam: XR Chest Exam date and time: 10/05/2021 6:49 PM Age: 31 years old Clinical indication: Cough and shortness of breath; Additional info: Dyspnea TECHNIQUE: Imaging protocol: XR of the chest. Views: 2 views. COMPARISON: CR XR chest 1V portable [id number] 03/19/2021 8:13 AM FINDINGS: Lungs: Bilateral hilar to lower lobe atelectasis versus minimal infiltrate. Pleural spaces: Unremarkable. No pleural effusion. No pneumothorax. Heart/Mediastinum: Cardiomegaly. Bones/joints: Unremarkable. XR/XR chest 2V* [id number] IMPRESSION: 1. Cardiomegaly. 2. Bilateral hilar to lower lobe atelectasis versus minimal infiltrate.
[2021-10-05 19:13] VITALS: BP 129/82; PULSE 117; RESP 24; TEMP 37.1; O2SAT 97; BMI 40.2
--- NOTE | 2021-10-06 00:18 | W.ED.URI ---
HPI - URI/Sore Throat General: Chief Complaint: Fever Stated Complaint: SOB\Sore Throat\Wheezing Time Seen by Provider: 10/06/21 00:12 History of Present Illness: Patient comes in with persistent cough and wheezing for the last 2 weeks. Patient tested positive for COVID 2 weeks ago. On exam patient appears mildly unwell but not toxic. Patient ambulates without any difficulty. Patient is alert and oriented. Patient has a history of serous otitis, anxiety disorder, respiratory failure, gastritis, intellectual disability Review of Systems Resp: Reports: dyspnea and non-productive cough PFSH ED PFSH: Medical History Anxiety Cholelithiasis Chronic otitis media of both ears Diabetes Fatty liver GERD (gastroesophageal reflux disease) Mild intellectual disability Mood disorder Non-insulin dependent diabetes mellitus Pneumonia due to COVID-19 virus Psychiatric care Tympanic membrane central perforation left Surgical History History of esophagogastroduodenoscopy (EGD) (~10/2020) History of foot surgery History of placement of ear tubes History of tonsillectomy Family History Other COVID-19 Social History Smoking and tobacco status: never smoked Alcohol intake: never Housing: Other Details: retirement Current gender identity: Female Physical Exam Const: COMMON NORMALS: alert HENMT: COMMON NORMALS: normocephalic HEAD & SCALP: normocephalic TYMPANIC MEMBRANE: TM abnormal TM laterality: bilateral dull Eye: COMMON NORMALS: Equal, round and reactive pupils present and EOMs intact bilaterally PUPIL: Yes Equal, round and reactive pupils present Lymph: LYMPHATIC: no lymphadenopathy noted Resp: COMMON NORMALS: normal respiratory effort AUSCULTATION: wheezes Cardio: COMMON NORMALS: regular rate and regular rhythm RATE: regular rate RHYTHM: regular rhythm Extremity: COMMON NORMALS: normal to inspection and no pedal edema Neuro: SENSORIUM/ORIENTATION: Yes alert Psych: COMMON NORMALS: cooperative Skin: COMMON NORMALS: no rashes or lesions noted GENERAL SKIN EXAM: no rashes or lesions noted Course Vital Signs: Vital signs: Vital Signs Temperature 98.7 F 10/05/21 19:13 Pulse Rate 117 H 10/05/21 19:13 Respiratory Rate 24 H 10/05/21 19:13 Blood Pressure 129/82 10/05/21 19:13 Pulse Oximetry 97 10/05/21 19:13 MDM - URI/Sore Throat Medical Decision Making 31-year-old female comes in today with complaints of cough and wheezing for the last 2 to 3 weeks. Patient tested positive for Covid 2 weeks ago. On exam patient has wheezing in lung law. Vital signs are normal except for some mild elevation in pulse and respirations. Differential diagnosis includes pneumonia, PE, bronchitis. Wells criteria for PE is 1. Believe patient probably has Covid pneumonia as her chest x-ray shows mild bilateral interstitial pneumonia. We will treat patient with albuterol inhaler and dexamethasone. I encourage plenty of fluids and follow-up with primary care in 3 to 5 days. Patient reported understanding along with financial data analyst. Patient was also discharged with a pulse oximetry to monitor for oxygen level to make sure it stays above 89%. Lab Data Radiology Impressions Chest X-Ray 10/05/21 18:49 IMPRESSION: 1. Cardiomegaly. 2. Bilateral hilar to lower lobe atelectasis versus minimal infiltrate. Discharge Plan Discharge Patient Disposition: Home Clinical Impression: Pneumonia due to 2019-nCoV Condition: Stable Prescriptions: New dexamethasone 4 mg tablet 4 mg PO BID Qty: 10 0RF No Action levonorgestrel-ethinyl estrad 0.15 mg-30 mcg (91) tablets,dose pack,3 month 1 tab PO DAILY 0RF Hold Instructions: Resume on 04/12/21. lorazepam 0.5 mg tablet 0.5 mg PO .qhs 30 Days Qty: 30 3RF prazosin 2 mg capsule 2 mg PO BEDTIME 30 Days Qty: 30 3RF trazodone 50 mg tablet 50 mg PO BEDTIME 30 Days Qty: 30 3RF venlafaxine 75 mg capsule,extended release 24hr 225 mg PO QAM 30 Days Qty: 90 3RF loratadine [Allergy Relief (loratadine)] 10 mg tablet 10 mg PO DAILY PRN (Reason: Allergy Symptoms) 0RF nystatin 100,000 unit/gram cream 1 applic topical BID 7 Days Qty: 30 0RF omeprazole 20 mg capsule,delayed release(DR/EC) See Rx Instructions .ROUTE .COMPLEX Qty: 60 2RF Dose Instruction: TAKE ONE CAPSULE BY MOUTH TWO TIMES A DAY Rx Instructions: TAKE ONE CAPSULE BY MOUTH TWO TIMES A DAY fluconazole [Diflucan] 150 mg tablet 150 mg PO DAILY 2 Days Qty: 2 0RF hydrocodone-acetaminophen 5-325 mg tablet 1 - 2 tab PO Q5H PRN (Reason: pain) Qty: 30 0RF acetaminophen 325 mg Tablet 650 mg PO Q6H PRN (Reason: Pain) 0RF triamcinolone acetonide 0.1 % Cream 1 applic TOPICAL TID PRN (Reason: Rash) 0RF loperamide 1 mg/5 mL Liquid 1 mg PO Q2H PRN (Reason: Diarrhea) 0RF Ruba-Lanta 200-200-20 mg/5 mL Suspension 15 ml PO TID PRN (Reason: Stomach Upset) 0RF metformin 500 mg Tablet Extended Release 24 Hr 500 mg PO DAILY 0RF Shirley-Felton + Night-Time Cold Capsule 1 cap PO QID PRN (Reason: Cough) 0RF Imodium A-D 2 mg capsule 2 mg PO Q6H PRN (Reason: loose stool) Qty: 14 0RF A and D (samuel, pet) Ointment 1 applic topical TID PRN (Reason: skin irritation) Qty: 113 0RF montelukast [Singulair] 10 mg Tablet 10 mg PO QPM 0RF diphenhydramine HCl 25 mg Tablet 25 mg PO Q6H PRN (Reason: Allergic Symptoms) 0RF ibuprofen 200 mg Tablet 200 mg PO BID PRN (Reason: pain) 0RF multivitamin Tablet 1 tab PO DAILY 0RF clonidine 0.2 mg/24 hr Patch Weekly 0.2 mg topical Q7D 0RF Rx Instructions: on Fridays dextromethorphan-guaifenesin 10-100 mg/5 mL Syrup 5 ml PO Q4H PRN (Reason: cough) 0RF Chloraseptic Throat [place] 1.4 % Aerosol,[place] 2 spray MUCOUS MEMBRANE Q2H PRN (Reason: Sore Throat) 0RF Discharge Orders: Discharge ED (Routine); Ordered 10/06/21 Ordered By: Boris Monae Referrals: Lillian Pena MD [Primary Care Provider] - Discharge Diet: Usual diet Patient Instructions: Viral Pneumonia (ED) Activity Restrictions/Additional Instructions: Home and rest. Use albuterol inhaler 2 inhalations every 4 hours as needed for cough or wheezing. Take dexamethasone 4 mg 2 times a day for the next 5 days. Drink plenty of water. Follow-up with primary care in 3 to 5 days as needed. Return to the ED for worsening symptoms or oxygen below 90% that does not improve with movement or taking deep breaths. Coding Level of Care Code ED Skein Winding Operator for [facility]pat[facility] History Expanded Problem Focused Exam Expanded Problem Focused Medical Decision Making Low Complexity Time Spent (min) 30
[2021-10-06] MEDS: dexamethasone 4 mg Tablet 8 MG PO (00:54)
[2021-10-06 01:00] VITALS: BP 132/85; PULSE 110; RESP 18; O2SAT 96
== END 2021-10-06 01:02 | disposition home or self-care (01) ==
PROVIDERS: Emergency Provider Nurse Practitioner Family; PCP Family Medicine
DX: U07.1 COVID-19 (principal); J12.82 Pneumonia due to coronavirus disease 2019; E11.9 Type 2 diabetes mellitus without complications
CPT/HCPCS: 71046; 99283; J3535; J8540

== ENCOUNTER → 2021-11-09 15:08 | Outpatient (BNVA) | payer MEDICARE, MEDICAID, SELFPAY | PROVIDERS: PCP Family Medicine; Visit Provider Podiatrist Foot & Ankle Surgery | DX: M79.672 Pain in left foot (principal) | CPT/HCPCS: 73610 ==

== ENCOUNTER → 2021-11-10 10:52 | Outpatient (BNVA) | payer MEDICARE, MEDICAID, SELFPAY | PROVIDERS: PCP Family Medicine; Visit Provider Social Worker Clinical | DX: F70 Mild intellectual disabilities (principal); F41.9 Anxiety disorder, unspecified; F39 Unspecified mood [affective] disorder | CPT/HCPCS: 90834 ==

== ENCOUNTER → 2021-12-21 08:29 | Outpatient (BNVA) | payer MEDICARE, MEDICAID, SELFPAY | PROVIDERS: PCP Family Medicine; Visit Provider Social Worker Clinical | DX: F70 Mild intellectual disabilities (principal); F39 Unspecified mood [affective] disorder; F41.9 Anxiety disorder, unspecified | CPT/HCPCS: 90834 ==

== ENCOUNTER → 2021-12-27 08:31 | Outpatient (BNVA) | payer MEDICARE, MEDICAID, SELFPAY | PROVIDERS: PCP Family Medicine; Visit Provider Podiatrist Foot & Ankle Surgery | DX: M76.822 Posterior tibial tendinitis, left leg (principal); M19.179 Post-traumatic osteoarthritis, unspecified ankle and foot; T84.84XA Pain due to internal orthopedic prosthetic devices, implants and grafts, initial encounter; L90.5 Scar conditions and fibrosis of skin | CPT/HCPCS: 99213; 99214 ==

== ENCOUNTER → 2021-12-31 10:52 | Outpatient (BNVA) | payer MEDICARE, MEDICAID, SELFPAY | PROVIDERS: PCP Family Medicine; Visit Provider Psychiatry & Neurology Psychiatry | DX: F39 Unspecified mood [affective] disorder (principal); F70 Mild intellectual disabilities | CPT/HCPCS: 99214 ==

== ENCOUNTER → 2022-01-05 13:48 | Outpatient (BNVA) | payer MEDICARE, MEDICAID, SELFPAY | PROVIDERS: PCP Family Medicine; Visit Provider Social Worker Clinical | DX: F70 Mild intellectual disabilities (principal); F41.9 Anxiety disorder, unspecified; F39 Unspecified mood [affective] disorder | CPT/HCPCS: 90834 ==

== ENCOUNTER 2022-01-11 10:46 | Outpatient (CLI) | payer MEDICARE, MEDICAID, SELFPAY ==
--- NOTE | 2022-01-11 10:57 | MR_ITS ---
WS: [id number] MRI LEFT ANKLE NONCONTRAST TECHNIQUE: Sagittal proton density, sagittal STIR, axial proton density, axial T1, axial T2 fat sat, coronal proton density, coronal proton density fat sat, coronal T2 fat sat. CLINICAL INFORMATION: to rule out peroneal tendon tear COMPARISON: None. FINDINGS: Prior postoperative changes screw fixation across the medial malleolus. Single screw fixation across the distal fibula for prior fracture repair. Normal talar dome. Slight dorsal calcaneal spurring. Distal Achilles is normal in appearance. Metalli c hardware with susceptibility artifact degrades some images. Normal peroneal tendon sheath where vis ualized. No significant tendinopathy. Peroneal longus and brevis are otherwise intact where visualize d. Peroneus brevis tendon is somewhat diminutive but appears intact. Extensor compartment tendons are normal where visualized. Flexor compartment tendons difficult to vis ualize due to susceptibility artifact. Normal talonavicular and talocalcaneal articulations. Normal cuboid. Base of the 5th metatarsal is no rmal in appearance. MR/MR ankle LT wo con* [id number] IMPRESSION:Prior postoperative changes bimalleolar fixation results in suscepti bility artifact which degrades some images. 1. Peroneus longus and brevis appear intact. Somewhat diminutive peroneus brev is appears intact. Normal peroneal tubercle. 2. Distal Achilles is normal in appearance. 3. Normal talar dome. 4. Normal plantar aponeurosis. 5. No other acute findings.
== END 2022-01-11 10:47 | disposition home or self-care (01) ==
PROVIDERS: PCP Family Medicine; Visit Provider Podiatrist Foot & Ankle Surgery
DX: M76.822 Posterior tibial tendinitis, left leg (principal); M25.572 Pain in left ankle and joints of left foot
CPT/HCPCS: 73721

== ENCOUNTER → 2022-01-19 14:39 | Outpatient (BNVA) | payer MEDICARE, MEDICAID, SELFPAY | PROVIDERS: PCP Family Medicine; Visit Provider Social Worker Clinical | DX: F70 Mild intellectual disabilities (principal); F39 Unspecified mood [affective] disorder; F41.9 Anxiety disorder, unspecified | CPT/HCPCS: 90834 ==

== ENCOUNTER → 2022-02-02 12:41 | Outpatient (BNVA) | payer MEDICARE, MEDICAID, SELFPAY | PROVIDERS: PCP Family Medicine; Visit Provider Social Worker Clinical | DX: F70 Mild intellectual disabilities (principal); F41.9 Anxiety disorder, unspecified; F39 Unspecified mood [affective] disorder | CPT/HCPCS: 90834 ==

== ENCOUNTER → 2022-02-09 09:52 | Outpatient (BNVA) | payer MEDICARE, MEDICAID, SELFPAY | PROVIDERS: PCP Family Medicine; Visit Provider Podiatrist Foot & Ankle Surgery | DX: M76.72 Peroneal tendinitis, left leg (principal); M25.572 Pain in left ankle and joints of left foot; M79.672 Pain in left foot; M19.172 Post-traumatic osteoarthritis, left ankle and foot; T84.84XA Pain due to internal orthopedic prosthetic devices, implants and grafts, initial encounter; L90.5 Scar conditions and fibrosis of skin | CPT/HCPCS: 99213 ==

== ENCOUNTER → 2022-02-17 14:48 | Outpatient (BNVA) | payer MEDICARE, MEDICAID, SELFPAY | PROVIDERS: PCP Family Medicine; Visit Provider Social Worker Clinical | DX: F70 Mild intellectual disabilities (principal); F41.9 Anxiety disorder, unspecified; F39 Unspecified mood [affective] disorder | CPT/HCPCS: 90834 ==

== ENCOUNTER → 2022-02-22 08:12 | Outpatient (BNVA) | payer MEDICARE, MEDICAID, SELFPAY | PROVIDERS: PCP Family Medicine; Visit Provider Otolaryngology | DX: H61.23 Impacted cerumen, bilateral (principal); H72.02 Central perforation of tympanic membrane, left ear; H66.92 Otitis media, unspecified, left ear | CPT/HCPCS: 69210; 99213 ==

== ENCOUNTER 2022-02-24 09:34 | Outpatient (CLI) | payer MEDICARE, MEDICAID, SELFPAY | END 2022-02-24 09:35 | disposition home or self-care (01) | PROVIDERS: PCP Family Medicine; Visit Provider Family Medicine | DX: N39.0 Urinary tract infection, site not specified (principal) | CPT/HCPCS: 87086 ==

== ENCOUNTER → 2022-03-03 12:37 | Outpatient (BNVA) | payer MEDICARE, MEDICAID, SELFPAY | PROVIDERS: PCP Family Medicine; Visit Provider Social Worker Clinical | DX: F70 Mild intellectual disabilities (principal); F41.9 Anxiety disorder, unspecified; F39 Unspecified mood [affective] disorder | CPT/HCPCS: 90834 ==

== ENCOUNTER → 2022-04-15 14:03 | Outpatient (BNVA) | payer MEDICARE, MEDICAID, SELFPAY | PROVIDERS: PCP Family Medicine; Visit Provider Podiatrist Foot & Ankle Surgery | DX: M76.72 Peroneal tendinitis, left leg (principal); M19.179 Post-traumatic osteoarthritis, unspecified ankle and foot; M76.70 Peroneal tendinitis, unspecified leg; T84.84XA Pain due to internal orthopedic prosthetic devices, implants and grafts, initial encounter; L90.5 Scar conditions and fibrosis of skin | CPT/HCPCS: 99213 ==

== ENCOUNTER 2022-05-14 21:58 | Emergency (ER) | payer MEDICARE, MEDICAID, SELFPAY ==
[2022-05-14 22:00] VITALS: BP 122/79; PULSE 89; RESP 18; TEMP 36.6; O2SAT 97; BMI 43.1
--- NOTE | 2022-05-14 22:56 | ED_ITS ---
HPI - Ear Problem General: Chief complaint: Ear Stated complaint: left ear pain Time Seen by Provider: 05/14/22 22:39 History of Present Illness: Patient is a 32-year-old female comes to the ED with left ear pain. Ear pain started approximately 7 days ago. Patient has a history of left ear problems and has a hole in her tympanic membrane and sees Dr. Ferris currently. She has an appoint with Dr. Ferris in 10 days. She has clear drainage from her left ear and endorses having a lot of pain. Denies any fever, chills, nausea/vomiting, bladder or bowel symptoms. Associated symptoms: Reports ear or mastoid pain (Left ear); Denies fever(s), headache(s) or neck pain Review of Systems Const: Denies: fever(s), chills or fatigue Eyes: Denies: change in vision or eye discomfort ENMT: Reports: ear or mastoid pain (Left ear) and ear discharge (Left ear); Denies: throat pain, odynophagia, nasal discharge or nasal congestion Card: Denies: chest pain, palpitations, edema, swelling of feet/ankles, dyspnea on exertion or orthopnea Resp: Denies: dyspnea, productive cough or non-productive cough GI: Denies: abdominal pain, nausea, vomiting, diarrhea, constipation or hematochezia : Denies: flank pain, dysuria or hematuria Musc: Denies: neck pain, back pain or extremity swelling Skin/Breast: Denies: rash or new lesions Neuro: Denies: headache(s), numbness in extremities or weakness in extremities [facility] ED PFSH: Medical History Anxiety Cholelithiasis Chronic otitis media of both ears Diabetes Fatty liver GERD (gastroesophageal reflux disease) Mild intellectual disability Mood disorder Non-insulin dependent diabetes mellitus Pneumonia due to COVID-19 virus Psychiatric care Tympanic membrane central perforation left Surgical History History of cholecystectomy History of esophagogastroduodenoscopy (EGD) (~10/2020) History of foot surgery History of placement of ear tubes History of tonsillectomy Family History Other COVID-19 Social History Smoking and tobacco status: never smoked Alcohol intake: never Housing: Other Details: longterm Current gender identity: Female Physical Exam Const: COMMON NORMALS: no acute distress, patient oriented x3, healthy appearing and alert GENERAL APPEARANCE: cooperative and comfortable HENMT: COMMON NORMALS: normocephalic HEAD & SCALP: normocephalic TYMPANIC MEMBRANE: TM normal on the right and TM abnormal TM laterality: left Details: perforation MOUTH: Normal oral and palatal mucosa present THROAT: posterior oropharynx normal and uvula midline Neck/C-Spine: COMMON NORMALS: supple GENERAL: Yes normal visual inspection Resp: COMMON NORMALS: normal respiratory effort, No retractions, No use of accessory muscles and clear to auscultation bilaterally AUSCULTATION: clear to auscultation bilaterally Cardio: COMMON NORMALS: regular rate, regular rhythm, S1 normal heart sound present, S2 normal heart sound present, No gallops present (Cardio), No clicks present (Cardio), No murmurs present (Cardio) and Peripheral pulses 2+ throughout RATE: regular rate RHYTHM: regular rhythm HEART SOUNDS: S1 normal heart sound present and S2 normal heart sound present PERIPHERAL PULSES: Peripheral pulses 2+ throughout GI: COMMON NORMALS: Normal to inspection, nondistended, normoactive bowel sounds present, Soft to palpation, non-tender and no masses PALPATION: Yes Soft to palpation : COMMON NORMALS: Yes no CVA tenderness BLADDER/KIDNEY EXAM: Yes no CVA tenderness Back/Pelvis: COMMON NORMALS: no CVA tenderness Extremity: COMMON NORMALS: normal to inspection Neuro: COMMON NORMALS: patient oriented x3 SENSORIUM/ORIENTATION: Yes alert GAIT: Yes Normal gait present Skin: GENERAL SKIN EXAM: dry skin Course Vital Signs: Vital signs: Vital Signs Temperature 97.8 F 05/14/22 22:00 Pulse Rate 93 05/14/22 23:58 Respiratory Rate 15 05/14/22 23:58 Blood Pressure 122/79 05/14/22 22:00 Pulse Oximetry 99 05/14/22 23:58 Oxygen Delivery Me thod 05/14/22 22:00 MDM - Ear Medical Decision Making Patient is a 32-year-old female comes to the ED with left ear pain. Ear pain started approximately 7 days ago. Patient has a history of left ear problems and has a hole in her tympanic membrane and sees Dr. Ferris currently. She has an appoint with Dr. Ferris in 10 days. Denies any fevers. Vitals are stable. Exam shows perforated left eardrum. Rest of exam is benign. Due to patient's left ear pain and TM perforation I am putting her on an oral antibiotic along with Ciprodex eardrops. Patient was discharged home with a prescription for antibiotic and Ciprodex eardrops. Told to follow-up with Dr. Ferris in her neck scheduled appointment. Return ED precautions given. Patient understood and agreed with plan. Discharge Plan Discharge Patient Disposition: Home Clinical Impression: Left ear pain Condition: Stable Prescriptions: New cefdinir 300 mg capsule 300 mg PO BID 10 Days Qty: 20 0RF Ciprodex 0.3-0.1 % drops,suspension 4 drp otic (ear) BID 7 Days Qty: 7.5 0RF No Action levonorgestrel-ethinyl estrad 0.15 mg-30 mcg (91) tablets,dose pack,3 month 1 tab PO DAILY Hold Instructions: Resume on 04/12/21. loratadine [Allergy Relief (loratadine)] 10 mg tablet 10 mg PO DAILY PRN (Reason: Allergy Symptoms) nystatin 100,000 unit/gram cream 1 applic topical BID 7 Days Qty: 30 0RF ibuprofen 600 mg tablet 600 mg PO Q6H PRN (Reason: pain) Qty: 30 0RF omeprazole 20 mg capsule,delayed release(DR/EC) See Rx Instructions .ROUTE .COMPLEX Qty: 60 2RF Dose Instruction: TAKE ONE CAPSULE BY MOUTH TWO TIMES A DAY Rx Instructions: TAKE ONE CAPSULE BY MOUTH TWO TIMES A DAY lorazepam 0.5 mg tablet 0.5 mg PO .qhs 30 Days Qty: 30 3RF prazosin 2 mg capsule 2 mg PO BEDTIME 30 Days Qty: 30 3RF trazodone 50 mg tablet 50 mg PO BEDTIME 30 Days Qty: 30 3RF venlafaxine 75 mg capsule,extended release 24hr 225 mg PO QAM 30 Days Qty: 90 3RF acetaminophen 325 mg Tablet 650 mg PO Q6H PRN (Reason: Pain) triamcinolone acetonide 0.1 % Cream 1 applic TOPICAL TID PRN (Reason: Rash) loperamide 1 mg/5 mL Liquid 1 mg PO Q2H PRN (Reason: Diarrhea) metformin 500 mg Tablet Extended Release 24 Hr 500 mg PO DAILY A and D (samuel, pet) Ointment 1 applic topical TID PRN (Reason: skin irritation) Qty: 113 0RF montelukast [Singulair] 10 mg Tablet 10 mg PO QPM diphenhydramine HCl 25 mg Tablet 25 mg PO Q6H PRN (Reason: Allergic Symptoms) multivitamin Tablet 1 tab PO DAILY clonidine 0.2 mg/24 hr Patch Weekly 0.2 mg topical Q7D Rx Instructions: on Fridays Chloraseptic Throat [place] 1.4 % Aerosol,[place] 2 spray MUCOUS MEMBRANE Q2H PRN (Reason: Sore Throat) Discharge Orders: Discharge ED (Routine); Ordered 05/14/22 Ordered By: Rafael Rodriguez Referrals: Lillian Pena MD [Primary Care Provider] - Discharge Diet: Regular Discharge Activity: Increase activity as tolerated Activity Restrictions/Additional Instructions: Follow-up with Dr. Ferris at your next scheduled appointment. Take medications as prescribed. Patient can take Ciprodex eardrops by applying 4 drops in the left ear twice daily for the next 7 days. She also was sent home with a prescription for cefdinir where she takes 1 300 mg tablet p.o. twice daily for the next 10 days. Return to the ER or your medical provider if condition worsens. Please read and understand discharge instructions. Thank you for choosing [facility] for your healthcare needs today. Please realize this is an emergency room and that we are providing you with a medical screening exam and this may not be complete and all inclusive of all the testing and or work up that you may need to determine your ailment or severity of your illness. It is very important that you follow up as instructed or that you return to the Emergency Department should you have concerns or if your condition changes or worsens in any way. Coding Level of Care Code ED Director Of Undergraduate Admissions for Sudheer Fwpatty Exam Comprehensive
[2022-05-14] MEDS: cefdinir 300 MG CAPSULE PO (23:10)
[2022-05-14] MEDS: ciprofloxacin-dexameth Otic Susp 7.5 mL Btl 4 DROP EAR-LEFT (23:18)
[2022-05-14 23:58] VITALS: PULSE 93; RESP 15; O2SAT 99
== END 2022-05-14 23:55 | disposition home or self-care (01) ==
PROVIDERS: Emergency Provider Physician Assistant; PCP Family Medicine
DX: H92.02 Otalgia, left ear (principal); H72.92 Unspecified perforation of tympanic membrane, left ear
CPT/HCPCS: 99283

== ENCOUNTER → 2022-05-24 09:46 | Outpatient (BNVA) | payer MEDICARE, MEDICAID, SELFPAY | PROVIDERS: PCP Family Medicine; Visit Provider Otolaryngology | DX: H72.02 Central perforation of tympanic membrane, left ear (principal); H66.005 Acute suppurative otitis media without spontaneous rupture of ear drum, recurrent, left ear | CPT/HCPCS: 99213 ==

== ENCOUNTER 2022-08-12 01:12 | Emergency (ER) | payer MEDICARE, MEDICAID, SELFPAY ==
[2022-08-12 01:19] VITALS: BP 108/68; PULSE 100; RESP 18; TEMP 36.6; O2SAT 95; BMI 43.5
--- NOTE | 2022-08-12 01:20 | XRR_ITS ---
PROCEDURE INFORMATION: Exam: XR Chest Exam date and time: 08/12/2022 1:33 AM Age: 32 years old Clinical indication: Cough and shortness of breath; Patient HX: Cough with SOB x 3 days. Flu a positive. TECHNIQUE: Imaging protocol: Radiologic exam of the chest. Views: 1 view. COMPARISON: CR XR chest 2V* [id number] 10/05/2021 6:56 PM FINDINGS: Lungs: Unremarkable. No consolidation. Pleural spaces: Unremarkable. No pleural effusion. No pneumothorax. Heart/Mediastinum: The heart is mildly enlarged. Diaphragm: Mild right hemidiaphragm elevation. Bones/joints: Unremarkable. XR/XR chest 1V portable [id number] IMPRESSION: 1. No acute findings. 2. The heart is mildly enlarged, similar to 10/05/2021.
[2022-08-12 01:22] VITALS: PULSE 104; RESP 18; O2SAT 97
--- NOTE | 2022-08-12 01:29 | ED_ITS ---
HPI - General Adult General: Chief complaint: General Medical Stated complaint: flu +, SOB Time Seen by Provider: 08/12/22 01:15 Source: patient Mode of arrival: ambulatory Limitations: no limitations History of Present Illness: 32-year-old female who states had cough congestion over the last 3 days she was diagnosed with influenza today states she had worsening cough tonight and some dyspnea while sleeping. Patient's had no vomiting or diarrhea. No pain afebrile here Associated symptoms: Reports dyspnea; Deny chest pain, headache(s), nausea, rash or vomiting Review of Systems Const: Denies: fever(s), chills, body aches or change in appetite Eyes: Denies: blurry vision or eye discomfort ENMT: Denies: throat pain or dental pain Card: Denies: chest pain Resp: Reports: dyspnea and non-productive cough GI: Denies: abdominal pain, nausea, vomiting or diarrhea : Denies: dysuria Musc: Denies: neck pain or back pain Skin/Breast: Denies: rash Neuro: Denies: headache(s) Psych: Denies: depression Albaro/Lymph: Denies: easy bruising All/Imm: Denies: urticaria PFSH ED PFSH: Medical History Anxiety Cholelithiasis Chronic otitis media of both ears Diabetes Fatty liver GERD (gastroesophageal reflux disease) Mild intellectual disability Mood disorder Non-insulin dependent diabetes mellitus Pneumonia due to COVID-19 virus Psychiatric care Tympanic membrane central perforation left Surgical History History of cholecystectomy History of esophagogastroduodenoscopy (EGD) (~10/2020) History of foot surgery History of placement of ear tubes History of tonsillectomy Family History Other COVID-19 Social History Smoking and tobacco status: never smoked Alcohol intake: never Housing: Other Details: fpc Current gender identity: Female Physical Exam Const: COMMON NORMALS: no acute distress, patient oriented x3 and healthy appe aring HENMT: COMMON NORMALS: normocephalic and atraumatic HEAD & SCALP: normocephalic and atraumatic Eye: COMMON NORMALS: Equal, round and reactive pupils present and EOMs intact bilaterally PUPIL: Yes Equal, round and reactive pupils present Neck/C-Spine: COMMON NORMALS: full ROM and supple Chest: COMMONS NORMALS: normal inspection of the chest and normal palpation of entire chest wall Resp: COMMON NORMALS: normal respiratory effort, No retractions, No use of accessory muscles and clear to auscultation bilaterally AUSCULTATION: clear to auscultation bilaterally Cardio: COMMON NORMALS: regular rate, regular rhythm and No murmurs present (Cardio) RATE: regular rate RHYTHM: regular rhythm GI: COMMON NORMALS: Normal to inspection, nondistended, normoactive bowel sounds present, Soft to palpation, non-tender and no masses PALPATION: Yes Soft to palpation Extremity: COMMON NORMALS: normal to inspection and full ROM Neuro: COMMON NORMALS: patient oriented x3, moves all extremities and no focal motor deficits Psych: COMMON NORMALS: mental status grossly normal, Normal thought process present and cooperative THOUGHT PROCESS: Normal thought process present Skin: COMMON NORMALS: no rashes or lesions noted and no wounds GENERAL SKIN EXAM: no rashes or lesions noted Course Vital Signs: Vital signs: Vital Signs Temperature 97.8 F 08/12/22 01:19 Pulse Rate 90 08/12/22 01:36 Respiratory Rate 16 08/12/22 01:36 Blood Pressure 109/61 08/12/22 01:36 Pulse Oximetry 95 08/12/22 01:36 Oxygen Delivery Me thod 08/12/22 01:36 [facility] - General Adult Medical Decision Making Patient presents with influenza chest x-ray shows no acute abnormalities her pulse ox here is normal she is well-appearing here and stable for discharge she is to follow-up with PCP and return if worsening. Lab Data Radiology Impressions Chest X-Ray 08/12/22 01:20 IMPRESSION: 1. No acute findings. 2. The heart is mildly enlarged, similar to 10/05/2021. Discharge Plan Discharge Patient Disposition: Home Clinical Impression: Influenza Condition: Stable Prescriptions: No Action levonorgestrel-ethinyl estrad 0.15 mg-30 mcg (91) tablets,dose pack,3 month 1 tab PO DAILY Hold Instructions: Resume on 04/12/21. loratadine [Allergy Relief (loratadine)] 10 mg tablet 10 mg PO DAILY PRN (Reason: Allergy Symptoms) nystatin 100,000 unit/gram cream 1 applic topical BID 7 Days Qty: 30 0RF ibuprofen 600 mg tablet 600 mg PO Q6H PRN (Reason: pain) Qty: 30 0RF cefdinir 300 mg capsule 300 mg PO BID ofloxacin 0.3 % drops 4 drp otic (ear) ONCE PRN (Reason: Tubes in tympanic membranes) 360 Days Qty: 10 12RF Rx Instructions: Apply 4 drops to left ear after water exposure omeprazole 20 mg capsule,delayed release(DR/EC) See Rx Instructions .ROUTE .COMPLEX Qty: 60 2RF Dose Instruction: TAKE ONE CAPSULE BY MOUTH TWO TIMES A DAY Rx Instructions: TAKE ONE CAPSULE BY MOUTH TWO TIMES A DAY lorazepam 0.5 mg tablet 0.5 mg PO .qhs 30 Days Qty: 30 3RF prazosin 2 mg capsule 2 mg PO BEDTIME 30 Days Qty: 30 3RF trazodone 50 mg tablet 50 mg PO BEDTIME 30 Days Qty: 30 3RF venlafaxine 75 mg capsule,extended release 24hr 225 mg PO QAM 30 Days Qty: 90 3RF acetaminophen 325 mg Tablet 650 mg PO Q6H PRN (Reason: Pain) triamcinolone acetonide 0.1 % Cream 1 applic TOPICAL TID PRN (Reason: Rash) loperamide 1 mg/5 mL Liquid 1 mg PO Q2H PRN (Reason: Diarrhea) metformin 500 mg Tablet Extended Release 24 Hr 500 mg PO DAILY A and D (samuel, pet) Ointment 1 applic topical TID PRN (Reason: skin irritation) Qty: 113 0RF montelukast [Singulair] 10 mg Tablet 10 mg PO QPM diphenhydramine HCl 25 mg Tablet 25 mg PO Q6H PRN (Reason: Allergic Symptoms) multivitamin Tablet 1 tab PO DAILY clonidine 0.2 mg/24 hr Patch Weekly 0.2 mg topical Q7D Rx Instructions: on Fridays Chloraseptic Throat [place] 1.4 % Aerosol,[place] 2 spray MUCOUS MEMBRANE Q2H PRN (Reason: Sore Throat) Discharge Orders: Discharge ED (Routine); Ordered 08/12/22 Ordered By: Kirk Cage Referrals: Lillian Pena MD [Primary Care Provider] - 1-3 days Discharge Diet: Advance as tolerated Discharge Activity: Resume usual activity Patient Instructions: Influenza (ED) Coding Level of Care Code ED Director Of Casework Department for [employer] Fwd Exam Comprehensive
[2022-08-12 01:36] VITALS: BP 109/61; PULSE 90; RESP 16; O2SAT 95
[2022-08-12] MEDS: dexamethasone 10 mg/mL INJ IM (01:42)
[2022-08-12] MEDS: ipratropium-albuterol 3 mL Neb INHALATION (01:46)
== END 2022-08-12 02:00 | disposition home or self-care (01) ==
PROVIDERS: Emergency Provider Emergency Medicine; PCP Family Medicine
DX: J11.1 Influenza due to unidentified influenza virus with other respiratory manifestations (principal)
CPT/HCPCS: 71045; 96372; 99284; J1100; J3535

== ENCOUNTER → 2022-08-19 09:26 | Outpatient (BNVA) | payer MEDICARE, MEDICAID, SELFPAY | PROVIDERS: PCP Family Medicine; Visit Provider Otolaryngology | DX: H66.93 Otitis media, unspecified, bilateral (principal); H72.02 Central perforation of tympanic membrane, left ear; H69.83 Other specified disorders of Eustachian tube, bilateral | CPT/HCPCS: 99213 ==

== ENCOUNTER → 2022-08-23 09:58 | Outpatient (BNVA) | payer MEDICARE, MEDICAID, OTHER, SELFPAY | PROVIDERS: PCP Family Medicine; Visit Provider Psychiatry & Neurology Psychiatry | DX: F39 Unspecified mood [affective] disorder (principal); F70 Mild intellectual disabilities; F41.9 Anxiety disorder, unspecified; Z79.899 Other long term (current) drug therapy | CPT/HCPCS: 80053; 80061; 83036; 83721; 84443 ==

== ENCOUNTER → 2023-11-28 09:30 | Outpatient (BNVA) | payer MEDICARE, MEDICAID, SELFPAY | PROVIDERS: PCP Family Medicine; Visit Provider Otolaryngology | DX: H61.23 Impacted cerumen, bilateral (principal); H66.93 Otitis media, unspecified, bilateral; H72.02 Central perforation of tympanic membrane, left ear; H69.83 Other specified disorders of Eustachian tube, bilateral | CPT/HCPCS: 69210; 99212 ==

== ENCOUNTER → 2024-02-05 09:30 | Outpatient (BNVA) | payer MEDICARE, MEDICAID, SELFPAY | PROVIDERS: PCP Family Medicine; Visit Provider Otolaryngology | DX: H72.02 Central perforation of tympanic membrane, left ear (principal); H69.83 Other specified disorders of Eustachian tube, bilateral; H61.23 Impacted cerumen, bilateral | CPT/HCPCS: 69210; 99212 ==

== ENCOUNTER 2025-03-04 11:12 | Outpatient (CLI) | payer MEDICARE, MEDICAID, SELFPAY ==
[2025-03-04 12:15] LABS: Hematocrit 39.1 % (36-47); Hemoglobin 11.70 g/dL (11.27-16.99); Mean Corpuscular HGB Conc 29.9 g/dL (30-55); Mean Corpuscular Hemoglobin 23.4 pg (27-33); Mean Corpuscular Volume 78.4 fl (85-98); Nucleated Red Blood Cells % 0 %; Platelet Count 517 10^3/cmm (157-399); Red Blood Count 4.99 10^6/uL (3.85-5.65); White Blood Count 12.17 10^3/uL (3.29-11.43)
[2025-03-04 12:50] LABS: Slide Review Slide Review Perform
== END 2025-03-04 11:13 | disposition home or self-care (01) ==
LOC: LAB 11:18
PROVIDERS: Visit Provider Nurse Practitioner Family
DX: R79.89 Other specified abnormal findings of blood chemistry (principal)
CPT/HCPCS: 36415; 82784; 85025

== ENCOUNTER → 2025-03-21 11:02 | Outpatient (BNVA) | payer MEDICARE, MEDICAID, SELFPAY | PROVIDERS: Visit Provider Student in an Organized Health Care Education/Training Program | DX: R12 Heartburn (principal) | CPT/HCPCS: 99204 ==

== ENCOUNTER 2025-04-15 08:14 | Day surgery (SDC) | payer MEDICARE, MEDICAID, SELFPAY ==
[2025-04-15 08:29] VITALS: BP 133/101; PULSE 91; RESP 17; TEMP 36.2; O2SAT 97; BMI 41.1
[2025-04-15 08:37] LABS: OR HCG Qualitative Urine Negative (Negative)
--- NOTE | 2025-04-15 09:03 | W.PM.OPSUD ---
Surgery/Procedure H&P Update DATE OF PROCEDURE: April 15, 2025 DATE H&P PERFORMED: 03/21/25 H&P UPDATE INFORMATION: I have reviewed H&P completed within last 30 days, I have examined patient prior to procedure and No changes to prior documentation PLANNED PROCEDURE: Operation Date: 04/15/25 09:15 Proposed Procedures p EGD with Biopsy [id number], R12(Not Applicable) - Blair Santiago MD
--- NOTE | 2025-04-15 09:04 | ANES.PREANE2 ---
Pre-Anesthetic Assessment Height/Weight: Height 1.6 m Weight 105.233 kg Temp Pulse Resp BP Pulse Ox O2 Del Method 97.1 F L 91 17 133/101 97 Room Air 04/15/25 08:29 04/15/25 08:29 04/15/25 08:29 04/15/25 08:29 04/15/25 08:29 04/15/25 08:29 Preop Diagnosis: Heartburn Operation Date: 04/15/25 09:15 Proposed Procedures p EGD with Biopsy [id number], R12(Not Applicable) - Blair Santiago MD Familial anesthetic complications: none Was Beta Juan C taken within 24 hours: N/A Was Clonidine taken within 24 hours: N/A Last intake: Intake Last Liquid Date 04/14/25 Last Liquid Time 20:00 Last Solid Date 04/14/25 Last Solid Time 18:00 Social No alcohol and No tobacco Exam alert, oriented x 3, clear to auscultation bilaterally and regular rate & rhythm Airway Submandibular: within normal limits Cervical ROM: within normal limits Mallampati: Class II Dentition: full Pulmonary None reported CV/HEM None reported None reported Hepatic None reported GI Gastroesophageal Reflux Disease abdominal pain Metabolic Diabetes Mellitus [facility] [place] None reported Neuropsych Deficit (intellectual disability ) Anesthetic Plan ASA status: 3 Anesthesia: MAC Medications/Allergies Home Medications ?Medication ?Instructions ?Recorded ?Confirmed ?Last Taken ?Type levonorgestrel 0.15 mg-ethinyl 1 tab PO DAILY 12/08/20 04/15/25 04/14/25 History estradiol 30 mcg tablets,3 mos pack(91) clonidine 0.2 mg/24 hr weekly 0.2 mg topical Q7D 03/14/21 04/09/25 04/12/25 History transdermal patch diphenhydramine HCl 25 mg tablet 25 mg PO Q6H PRN Allergic Symptoms 03/14/21 04/15/25 Unknown History multivitamin 1 tab PO DAILY 03/14/21 04/15/25 04/14/25 History phenol 1.4 % mucosal aerosol spray 2 spray mucous membrane Q2H PRN 03/14/21 04/15/25 1 Day Ago History (Chloraseptic Throat [place]) Sore Throat ~03/13/21 acetaminophen 325 mg tablet 650 mg PO Q6H PRN Pain 05/29/21 04/15/25 Unknown History loperamide 1 mg/5 mL oral liquid 1 mg PO Q2H PRN Diarrhea 05/29/21 04/15/25 04/09/25 History triamcinolone acetonide 0.1 % 1 applic topical TID PRN Rash 05/29/21 04/15/25 Unknown History topical cream vitamins A and D-white 1 applic topical TID PRN skin 05/29/21 04/15/25 04/09/25 Rx petrolatum-lanolin topical irritation #113 grams ointment (A and D (lanolin-petrolatum) topical ointment) ibuprofen 600 mg tablet 600 mg PO Q6H PRN pain #30 tabs 02/12/22 04/15/25 Unknown Rx polymyxin B sulfate 10,000 1 drp ophthalmic (eye) Q3H #10 mL 09/01/22 04/15/25 04/14/25 Rx unit-trimethoprim 1 mg/mL eye drops (Polytrim) cholecalciferol (vitamin D3) 25 1,000 unit PO DAILY 10/11/22 04/15/25 04/14/25 History mcg (1,000 unit) capsule cetirizine 10 mg tablet (All Day 10 mg PO DAILY 05/02/23 04/15/25 04/14/25 History Allergy (cetirizine)) tirzepatide 2.5 mg/0.5 mL 5 mg SUBCUT .weekly 01/21/25 04/09/25 04/03/25 History subcutaneous pen injector (Bridgerunliatro) venlafaxine 75 mg capsule,extended 225 mg (3 x 75 mg) PO QAM 30 days 02/17/25 04/15/25 04/14/25 Rx release 24 hr #90 caps prazosin 1 mg capsule 1 mg PO .qhs 30 days #30 caps 02/25/25 04/15/25 04/14/25 Rx prazosin 2 mg capsule 2 mg PO BEDTIME 30 days #30 caps 02/25/25 04/15/25 04/14/25 Rx lorazepam 0.5 mg tablet 0.5 mg PO BID PRN anxiety 30 days 03/14/25 04/15/25 04/14/25 Rx #60 tabs pantoprazole 40 mg tablet,delayed 40 mg PO BID 6 weeks #84 tabs 03/21/25 04/15/25 04/14/25 Rx release (Protonix) Allergies Allergy/AdvReac Type Severity Reaction Status Date / Time phenobarbital Allergy RASH Verified 04/15/25 08:24 Current Medications Generic Name Dose Route Start Last Admin Trade Name Freq PRN Reason Stop Dose Admin Sodium Chloride 1,000 mls @ 15 mls/hr 04/15/25 08:15 04/15/25 08:35 Sodium Chloride 0.9% IV 04/16/25 08:14 15 mls/hr .Q24H PRN Administration COLONOSCOPY FLUIDS PFSH Anesthesia Medical History (Updated 03/22/25 @ 13:16 by Blair Santiago MD) Psychiatric care Non-insulin dependent diabetes mellitus Diabetes Pneumonia due to COVID-19 virus Tympanic membrane central perforation left Mild intellectual disability Chronic otitis media of both ears Mood disorder Fatty liver Cholelithiasis GERD (gastroesophageal reflux disease) Surgical History History of cholecystectomy History of foot surgery History of tonsillectomy History of esophagogastroduodenoscopy (EGD) (~10/2020) History of placement of ear tubes Family History Other COVID-19 Social History Smoking and tobacco/nicotine status: never used tobacco/nicotine Alcohol intake: never Substance/Drug Use: never Housing: Other Details: detention Current gender identity: Female Female Reproductive History Date of last menstrual period: 04/09/25
[2025-04-15 09:25] VITALS: BP 129/84; PULSE 85; RESP 20; TEMP 36.4; O2SAT 97
[2025-04-15 09:37] VITALS: BP 112/79; PULSE 88; RESP 18; O2SAT 96
--- NOTE | 2025-04-15 10:11 | ANE.PACU2 ---
Inpatient post-anesthesia follow up: Airway intact: Yes Vital signs: Temperature 97.6 F Pulse Rate 88 Respiratory Rate 18 Blood Pressure 112/79 Pulse Oximetry 96 Oxygen Delivery Me thod Room Air Oxygen Flow Rate Fraction of Inspir ed Oxygen Hydration adequate: Yes Nausea and vomiting: No Pain level: 1 Mental status: Baseline
== END 2025-04-15 10:11 | disposition home or self-care (01) ==
PROVIDERS: Student in an Organized Health Care Education/Training Program; Visit Provider Student in an Organized Health Care Education/Training Program
PROC: 0DJ08ZZ Inspection of Upper Intestinal Tract, Via Natural or Artificial Opening Endoscopic (ICD-10-PCS; principal; 2025-04-15 09:15)
DX: R12 Heartburn (principal); K29.50 Unspecified chronic gastritis without bleeding; K21.9 Gastro-esophageal reflux disease without esophagitis; E11.9 Type 2 diabetes mellitus without complications; Z79.84 Long term (current) use of oral hypoglycemic drugs
CPT/HCPCS: 36416; 43239; 81025; 82962; 88305; 88342; J2250; J2704; J7030

== ENCOUNTER → 2025-04-28 09:55 | Outpatient (BNVA) | payer MEDICARE, MEDICAID, SELFPAY | PROVIDERS: PCP Family Medicine; Visit Provider Student in an Organized Health Care Education/Training Program | DX: Z09 Encounter for follow-up examination after completed treatment for conditions other than malignant neoplasm (principal) | CPT/HCPCS: 99213 ==

== ENCOUNTER → 2025-05-26 13:37 | Outpatient (BNVA) | payer MEDICARE, MEDICAID, SELFPAY | PROVIDERS: PCP Family Medicine; Visit Provider Family Medicine | DX: E11.65 Type 2 diabetes mellitus with hyperglycemia (principal); K21.9 Gastro-esophageal reflux disease without esophagitis; J96.91 Respiratory failure, unspecified with hypoxia | CPT/HCPCS: 80053; 80061; 82043; 83036; 84443; 85025 ==